=== PATIENT | male | born 1950 | race Caucasian/White ===

== ENCOUNTER 2016-09-10 07:08 | Observation (INO) | payer OTHER ==
[2016-09-05 09:22] VITALS: BMI 26.0
[~2016-09-10] VITALS: Ht 172.7 cm; Wt 79.5 kg
[2016-09-10] VITALS (9 sets, daily range): BP systolic 94–161; BP diastolic 52–93; PULSE 62–84; TEMP 36.2–36.7; O2SAT 92–98; Ht 172.7 cm; Wt 79.5 kg
[~2016-09-10 07:08] MED LIST: ASPI325T39 PO; CEFUROXIME IV 1,500 MG in DEXTROSE 5% 100ML IV SCH; CLC100X PO; FERR325T51 PO; LACTATED RINGER'S 1000ML 1,000 ML IV SCH; LISI10TA PO; MAGN250T3 PO; MULT-506 PO; PSYL55.43 PO; RANI150T3 PO; TADA5TAB11 PO
[2016-09-10] MEDS ORDERED: SUCCINYLCHOLINE CHLORIDE 20 MG/ML 10 ML VIAL IV ONE (08:33)
[2016-09-10] MEDS ORDERED: ONDANSETRON INJ 2 MG/ML 2 ML VIAL ONE (08:33)
[2016-09-10] MEDS ORDERED: PHENYLEPHRINE HCL INJ 10 MG/ML VIAL ONE (08:33)
[2016-09-10] MEDS ORDERED: ROCURONIUM BROMIDE 10 MG/ML 5 ML VIAL ONE (08:33)
[2016-09-10] MEDS ORDERED: MIDAZOLAM HCL 1 MG/ML 2ML VIAL ONE (08:33)
[2016-09-10] MEDS ORDERED: LIDOCAINE HCL 2% 2 ML VIAL (20MG/ML) ONE (08:33)
[2016-09-10] MEDS ORDERED: GLYCOPYRROLATE INJ 0.2 MG/ML VIAL ONE (08:33)
[2016-09-10] MEDS ORDERED: FENTANYL CITRATE INJ 50 MCG/1 ML 2 ML VIAL ONE ×2 (08:33→10:02)
[2016-09-10] MEDS ORDERED: DEXAMETHASONE SOD INJ 4 MG/ML VIAL ONE (08:33)
[2016-09-10] MEDS ORDERED: EpHEDrine SULFATE INJ 50 MG/ML AMP ONE (08:33)
[2016-09-10] MEDS ORDERED: NEOSTIGMINE METHYLSULFATE 5 MG/5 ML SYR ONE (08:33)
[2016-09-10] MEDS ORDERED: PROPOFOL IV EMULSION 10 MG/ML 20 ML VIAL IV ONE (08:33)
--- NOTE | 2016-09-10 09:03 | History & Physical Bridge Note ---
H&P Re-Evaluation Bridge Note: I have examined the patient, reviewed the History & Physical and in the interval since the performance of the History & Physical I have noted the following changes of clinical significance: No changes noted
[2016-09-10] MEDS ORDERED: METOCLOPRAMIDE HCL INJ 5 MG/ML 2 ML VIAL ONE (10:09)
[2016-09-10] MEDS ORDERED: DiphenhydrAMINE HCL 50 MG/ML VIAL ONE (10:09)
[2016-09-10] MEDS ORDERED: FLUMAZENIL 0.1 MG/1 ML 10 ML VIAL IV PRN (10:15)
[2016-09-10] MEDS ORDERED: HYDROmorphone INJ 1 MG/ML SYR IV PRN (10:15)
[2016-09-10] MEDS ORDERED: EpHEDrine SULFATE INJ 50 MG/ML AMP IV PRN (10:15)
[2016-09-10] MEDS ORDERED: PROMETHAZINE HCL INJ 12.5 MG in SODIUM CHLORIDE 0.9% 50ML 50 ML IV PRN ×2 (10:15→12:15)
[2016-09-10] MEDS ORDERED: ATROPINE SULFATE 0.1 MG/ML 5ML SYR IV PRN (10:15)
[2016-09-10] MEDS ORDERED: LABETALOL HCL IV 5 MG/ML 20ML IV PRN (10:15)
[2016-09-10] MEDS ORDERED: ONDANSETRON INJ 2 MG/ML 2 ML VIAL IV PRN ×2 (10:15→10:45)
[2016-09-10] MEDS ORDERED: NALOXONE HCL 0.4 MG/1 ML VIAL/CARP IV PRN (10:15)
[2016-09-10] MEDS ORDERED: BUPIVACAINE 0.5 % 5 MG/1 ML MPF 30ML VIAL INJ ONE (10:30)
--- NOTE | 2016-09-10 10:41 | [facility] Operative Report ---
Operative Report Operative Date Sep 10, 2016. Pre-Operative Diagnosis Billiary colic Post-Operative Diagnosis same, chronic cholecystitis, adhesions Procedure(s) Performed lap deanna, lysis of adhesions Surgeon Dr Douglas Bettencourt Estimated Blood Loss 20 Findings omental adhesions to abd wall and adhesions around gb Specimens A: Gallbladder Drains #15 Rd JORDYN to subhepatic space Anesthesia gen Complication(s) None Disposition Recovery Room / PACU I attest to the content of the Intraoperative Record and any orders documented therein. Any exceptions are noted below.
[2016-09-10] MEDS ORDERED: PROMETHAZINE HCL INJ 25 MG in SODIUM CHLORIDE 0.9% 50ML 50 ML IV PRN (10:45)
[2016-09-10] MEDS ORDERED: MoRPHine SULFATE 4 MG/ML 1 ML CARP\\VIAL IV PRN (10:45)
[2016-09-10] MEDS ORDERED: HYDROCODONE/ACETAMOPHEN 5/325MG TAB PO PRN ×2 (10:45)
[2016-09-10] MEDS ORDERED: MoRPHine SULFATE 2 MG/ML CARP IV PRN (10:45)
--- NOTE | 2016-09-10 11:09 | OPERATIVE REPORT ---
DATE OF OPERATION: 09/10/2016 PREOPERATIVE DIAGNOSIS: Biliary colic. POSTOPERATIVE DIAGNOSIS: Same with chronic cholecystitis and adhesions. NAME OF OPERATION: Laparoscopic cholecystectomy with lysis of adhesions. STAFF SURGEON: Dr. Bettencourt. ANESTHESIA: General. OPERATION AND FINDINGS: PROCEDURE: The patient was brought in the operating room and placed on the operating table in supine position. Pneumatic stockings and orogastric tube were placed. His abdomen was prepped and draped in usual fashion. He had previous scars from prior kidney surgery and also prostate surgery. Incision was made just below the umbilicus using 0.5% plain Marcaine to anesthetize the skin carrying dissection down to the fascia, placing a Veress needle producing pneumoperitoneum. An 11 mm port was placed at this level and then the camera passed. The patient did have adhesions to the anterior abdominal wall of the omentum. I was able to place 3 additional 5 mm ports, 1 cephalad and 2 laterally under visualization. The adhesions of the omentum were then taken down and then the gallbladder grasped and retracted. There were also adhesions to the gallbladder. These were taken down with mild difficulty. There was significant adhesion in the area of the tab hepatis, however I was gradually able to identify the area of the proximal gallbladder and cystic duct. This was clipped and transected. I believe the cystic artery was incorporated in this area. There were several other small areas that were clipped and then the gallbladder dissected away from the liver bed, it did show evidence of chronic inflammation. The gallbladder was placed in an Endobag. After appropriate hemostasis and irrigation I did place a 15 round Eldon-Espinoza drain through the lateral 5 mm site, placed into the subhepatic space, secured to the skin using 3-0 nylon suture. At this point, the 5 mm scope was used and the gallbladder and then removed through the umbilical site via an Endobag. All ports were then removed. The fascia at the umbilicus closed using interrupted 0 Vicryl suture and the skin reapproximated using 4-0 nylon suture. The patient was transferred to recovery room in stable condition. I attest to the content of the Intraoperative Record and any orders documented therein. Any exceptio ns are noted below.
--- NOTE | 2016-09-10 11:39 | Anesthesiology Progress Note ---
Anesthesia Post Op Note Date & Time Sep 10, 2016 at 11:38 Vital Signs Pain Intensity: 0 Vital Signs Past 12 Hours Date Time Temp Pulse Resp B/P Pulse Ox O2 Delivery O2 Flow Rate FiO2 09/10/16 11:28 36.4 09/10/16 11:18 153/86 09/10/16 11:16 63 15 09/10/16 11:16 63 15 99 09/10/16 11:13 146/82 09/10/16 11:11 67 16 98 09/10/16 11:11 66 16 09/10/16 11:08 157/85 09/10/16 11:06 76 12 100 09/10/16 11:06 76 12 09/10/16 11:05 149/83 09/10/16 11:04 163/100 09/10/16 11:01 80 15 09/10/16 11:01 80 15 99 09/10/16 10:58 150/91 09/10/16 10:56 74 12 09/10/16 10:56 74 12 99 09/10/16 10:53 143/83 09/10/16 10:51 75 12 98 09/10/16 10:51 75 12 09/10/16 10:49 136/70 09/10/16 10:46 36.3 74 13 159/88 100 Mask 10 09/10/16 10:46 74 13 09/10/16 10:46 73 13 100 09/10/16 07:33 36.5 77 20 157/92 97 Room Air Notes Mental Status: alert / awake / arousable, participated in evaluation Pt Amnestic to Procedure: Yes Nausea / Vomiting: adequately controlled Pain: adequately controlled Airway Patency, RR, SpO2: stable & adequate BP & HR: stable & adequate Hydration State: stable & adequate Anesthetic Complications: no major complications apparent
[2016-09-10] MEDS: LACTATED RINGER'S 1000ML 1,000 ML IV SCH (13:33)
[2016-09-10] MEDS ORDERED: HYDR-5688 PO (14:33)
[2016-09-10] MEDS ORDERED: CIPR-255 PO (14:33)
--- NOTE | 2016-09-10 14:35 | Discharge Instructions ---
Discharge Instructions Admission Reason for Admission: Right Upper Quadrant Abdominal Pain Discharge Discharge Diagnosis / Problem: cholecystitis Discharge Goals Goal(s): Decrease discomfort, Improve function, Improve disease control Activity Recommendations Activity Limitations: as noted below Lifting Limitations: no more than 25 pounds Exercise/Sports Limitations: until after follow-up appointment May Resume Sexual Activity: when tolerated Shower/Bathe: tomorrow Driving or Machine Use: resume 3 days after discharge SPECIAL CARE INSTRUCTIONS: * Cover incisions and change daily for comfort/drainage. * Empty drain 2-3 times per day and record. * May use ibuprofen for pain as tolerated. * Expect some swelling and bruising. Call your doctor if: * Temperature above 101 degrees * Pain not relieved by pain medicine ordered * There is increased drainage or redness from any incision * You have any unanswered questions or concerns [phone]. FOLLOW UP VISIT: If not already scheduled, please call the office for a follow-up visit. for next Thu or Thu- drain removal OFFICE PHONE NUMBER: Dr. Bettencourt Office . Current Hospital Diet Patient's current hospital diet: Regular Diet Discharge Diet Recommended Diet: Regular Diet Procedures Procedures Performed: Laparoscopic Cholecystectomy, Lysis of adhesions Pending Studies Studies pending at discharge: no Medical Emergencies . Who to Call and When: Medical Emergencies: If at any time you feel your situation is an emergency, please call 911 immediately. . Non-Emergent Contact Non-Emergency issues call your: Surgeon . "Provider Documentation" section prepared by Bonifacio Bettencourt. VTE Core Measure Inpt VTE Proph given/why not?: SCD's
[2016-09-10] MEDS ORDERED: IV FLUIDS COMPLETED PRN (14:45)
[2016-09-10] MEDS ORDERED: PNEUMOCOCCAL ADMINISTRATION CHARGE ONE (15:15)
[2016-09-10] MEDS ORDERED: PNEUMOCOCCAL POLYSACCHARIDES 25 MCG/0.5 ML VIAL/SYR IM. ONE (15:15)
[2016-09-10] MEDS ORDERED: OXYCODONE/ACETAMINOPHEN 5-325 TAB PO PRN (16:00)
[2016-09-10] MEDS ORDERED: NURSING DECISION MEDICATION ORDER SCH (16:00)
[2016-09-10] MEDS: LISINOPRIL 10 MG TAB PO SCH (16:13)
[2016-09-10] MEDS ORDERED: COUGH DROP (SUGAR FREE) LOZ 24 LOZ/1 BOX PO PRN (16:15)
[2016-09-10] MEDS: OXYCODONE/ACETAMINOPHEN 5-325 TAB PO PRN ×2 (16:16→20:54)
[2016-09-10] MEDS: CEFUROXIME IV 1,500 MG in DEXTROSE 5% 100ML 100 ML IV SCH (18:48)
[2016-09-10] MEDS: RANITIDINE HCL 150 MG TAB PO SCH (20:54)
[2016-09-10] MEDS: DOCUSATE SODIUM 100 MG CAP PO SCH (20:54)
[2016-09-11] MEDS: LACTATED RINGER'S 1000ML 1,000 ML IV SCH (01:18)
[2016-09-11] MEDS: CEFUROXIME IV 1,500 MG in DEXTROSE 5% 100ML 100 ML IV SCH ×2 (01:19→09:39)
[2016-09-11 01:22] VITALS: BP 122/65
[2016-09-11 03:26] VITALS: BP 115/58; PULSE 70; TEMP 36.6; O2SAT 94
[2016-09-11 05:06] LABS: HEMATOCRIT 38.9 % (42-52); MEAN CELL VOLUME 81.9 fL (80-100); MEAN CORPUSCULAR HEMOGLOBIN 26.7 pg (25-34); MEAN CORPUSCULAR HGB CONC 32.6 g/dl (32-36); PLATELET COUNT 254 K/uL (130-400); RED BLOOD COUNT 4.75 M/uL (4.7-6.1); WHITE BLOOD COUNT 12.33 K/uL (4.8-10.8)
[2016-09-11] MEDS ORDERED: OXYC-57 PO (05:36)
[2016-09-11 05:41] LABS: ALT/SGPT 32 U/L (12-78); AST/SGOT 23 U/L (15-37); BLOOD UREA NITROGEN 14 mg/dl (7-18); BUN/CREATININE RATIO 18.3 (10-20); CALCIUM 8.3 mg/dl (8.5-10.1); CARBON DIOXIDE 26 mmol/L (21-32); CHLORIDE 110 mmol/L (98-107); CREATININE 0.77 mg/dl (0.60-1.40); GLUCOSE 107 mg/dl (70-99); POTASSIUM 4.4 mmol/L (3.5-5.1); SODIUM 143 mmol/L (136-145)
[2016-09-11 05:43] LABS: ALB/GLOB RATIO 1.2 (0.9-2); ALKALINE PHOSPHATASE 73 U/L (45-117)
[2016-09-11 06:54] VITALS: BP 112/58; PULSE 63; TEMP 36.5; O2SAT 94
[2016-09-11 07:23] VITALS: BP 112/58; PULSE 63; TEMP 36.5; O2SAT 94
--- NOTE | 2016-09-11 07:53 | DISCHARGE SUMMARY ---
PRINCIPAL DIAGNOSIS: Chronic cholecystitis. PROCEDURES: The patient underwent laparoscopic cholecystectomy with drain placement. HISTORY OF PRESENT ILLNESS: The patient is a 66-year-old male who has been having upper abdominal symptoms consistent with biliary colic. HOSPITAL COURSE: The patient was brought into the hospital on 09/10/2016 to undergo elective cholecystectomy. We did perform the operation with laparoscope; however, he did have significant adhesions from previous surgery which complicated this operation somewhat. The gallbladder showed severe adhesions and chronic inflammation and I did place a drain which he will be discharged home with. We will see him in the surgical clinic next week.
[2016-09-11] MEDS: DOCUSATE SODIUM 100 MG CAP PO SCH (08:35)
[2016-09-11] MEDS: RANITIDINE HCL 150 MG TAB PO SCH (08:35)
[2016-09-11] MEDS ORDERED: PSYLLIUM 58.6% PWD PACK S\\F PO SCH (09:00)
[2016-09-11] MEDS: LISINOPRIL 10 MG TAB PO SCH (09:35)
[2016-09-11] MEDS: OXYCODONE/ACETAMINOPHEN 5-325 TAB PO PRN (10:28)
--- NOTE | 2016-09-11 10:29 | Anesthesiology Progress Note ---
Anesthesia Post Op Note Date & Time Sep 11, 2016 at 10:28 Vital Signs Pain Intensity: 5.0 Vital Signs Past 12 Hours Date Time Temp Pulse Resp B/P Pulse Ox O2 Delivery O2 Flow Rate FiO2 09/11/16 08:00 Room Air 09/11/16 07:23 36.5 63 18 94 Room Air 09/11/16 06:54 36.5 63 18 112/58 94 Room Air 09/11/16 03:26 36.6 70 16 115/58 94 Room Air 09/11/16 01:22 122/65 09/10/16 23:25 36.7 80 16 94/52 92 Room Air 09/10/16 23:05 Room Air Notes Mental Status: alert / awake / arousable, participated in evaluation Pt Amnestic to Procedure: Yes Nausea / Vomiting: adequately controlled Pain: adequately controlled Airway Patency, RR, SpO2: stable & adequate BP & HR: stable & adequate Hydration State: stable & adequate Anesthetic Complications: no major complications apparent
== END 2016-09-11 10:44 | disposition home or self-care (01) ==
LOC: ENRESERVTM → ENRESERVDT → C.ACU 07:08 → C.MSW 10:46
PROVIDERS: ADMIT Surgery; ATTEND Surgery
DX: K81.1 Chronic cholecystitis (principal); K66.0 Peritoneal adhesions (postprocedural) (postinfection); N40.1 Benign prostatic hyperplasia with lower urinary tract symptoms; N13.8 Other obstructive and reflux uropathy; K21.9 Gastro-esophageal reflux disease without esophagitis; I10 Essential (primary) hypertension; N52.9 Male erectile dysfunction, unspecified; Z90.49 Acquired absence of other specified parts of digestive tract; Z79.82 Long term (current) use of aspirin; Z85.46 Personal history of malignant neoplasm of prostate; Z82.49 Family history of ischemic heart disease and other diseases of the circulatory system; Z80.42 Family history of malignant neoplasm of prostate

== ENCOUNTER → 2016-10-02 | Outpatient (CLI) | payer OTHER ==
[~2016-10-02] MED LIST changes: +ASPI325T45 PO; -CEFUROXIME IV 1,500 MG in DEXTROSE 5% 100ML IV SCH; +CIPR-255 PO; +DOCU-94 PO; +FRRS300 PO; -LACTATED RINGER'S 1000ML 1,000 ML IV SCH; +ONDA4TAB10 SL; +OXYC-57 PO; +PSYL48.58 PO; -TADA5TAB11 PO; +TAMS0.4C38 PO
[2016-10-02 12:23] LABS: BLOOD UREA NITROGEN 15 mg/dl (7-18); BUN/CREATININE RATIO 16.4 (10-20)
[2016-10-02 12:24] LABS: PROSTATE SPECIFIC ANTIGEN < 0.010 ng/ml (0.000-4.000)
== END | disposition home or self-care (01) ==
LOC: C.LAB 11:12
PROVIDERS: ATTEND Urology
DX: N52.9 Male erectile dysfunction, unspecified (principal)

== ENCOUNTER 2016-10-16 02:30 | Emergency (ER) | payer OTHER ==
[~2016-10-16 02:30] MED LIST changes: -ASPI325T45 PO; -DOCU-94 PO; -FRRS300 PO; -ONDA4TAB10 SL; -PSYL48.58 PO; -TAMS0.4C38 PO
[2016-10-16 04:27] LABS: MANUAL MICROSCOPIC REQUIRED? NO; REVIEW REQ? NO; URINE APPEARANCE CLEAR (CLEAR); URINE BILIRUBIN NEG (NEG); URINE COLOR YELLOW; URINE EPITHELIAL CELL AUTO 0-5 /lpf (0-5); URINE NITRITE NEG (NEG); URINE SPECIFIC GRAVITY 1.011 (1.000-1.030); UROBILINOGEN NEG (NEG)
[2016-10-16 04:37] LABS: BLOOD UREA NITROGEN 21 mg/dl (7-18); BUN/CREATININE RATIO 22.6 (10-20); CALCIUM 8.7 mg/dl (8.5-10.1); CARBON DIOXIDE 26 mmol/L (21-32); CHLORIDE 109 mmol/L (98-107); CREATININE 0.93 mg/dl (0.60-1.40); GLUCOSE 115 mg/dl (70-99); POTASSIUM 4.3 mmol/L (3.5-5.1); SODIUM 143 mmol/L (136-145)
[2016-10-16] MEDS ORDERED: ONDA4TAB10 SL (04:47)
[2016-10-16] MEDS ORDERED: OXYC-57 PO (04:47)
[2016-10-16] MEDS ORDERED: TAMS0.4C38 PO (04:47)
--- NOTE | 2016-10-16 04:49 | EMERGENCY ROOM VISIT NOTE ---
History First contact with patient: 04:42 Stated Complaint: LT FLANK PAIN History of Present Illness The patient is a 66 year old male who presents to the Emergency Room with complaints of left flank pain which began today. The patient has had left flank pain with radiation into the genitals. He states that prior to arrival, he developed severe 10/10 pain in the left flank. He had one episode of vomiting. Pain has almost completely resolved on his arrival to the emergency room. The patient does have a history of kidney stones and feels this may be similar. He has not had a kidney stone for several years. The patient has also had a cough for the past one month. He denies any urinary symptoms, changes in bowel movements, fevers/chills, chest pain or shortness of breath. Review of Systems A complete 10-point Review of Systems was discussed with the patient, with pertinent positives and negatives listed in the History of Present Illness. All remaining Review of Systems questions can be considered negative unless otherwise specified. Past Medical/Surgical History Medical Problems: (1) Biliary colic (2) Duodenal stricture (3) Hiatal hernia (4) Prostate cancer Surgical Problems: (1) History of appendectomy (2) History of hernia repair (3) History of kidney surgery Family History Patient reports no known family medical history. Social History Smoking Status: Never Smoker Marital Status: Housing Status: lives with family Occupation Status: employed Current/Historical Medications Scheduled Docusate Sodium (Colace), 1 CAP PO BID Ferrous Sulfate (Ferrous Sulfate), 325 MG PO QAM Lisinopril (Prinivil), 10 MG PO QAM Magnesium (Magnesium 250 mg), 250 MG PO QAM Multivitamin (Multivitamin), 1 TAB PO QAM Ondasetron Odt (Zofran Odt), 4 MG SL Q6H Psyllium (Metamucil Original Textur), 1 PKT PO QAM Ranitidine Hcl (Zantac), 150 MG PO BID Tamsulosin Hcl (Flomax), 0.4 MG PO DAILY Scheduled PRN Oxycodone/Acetaminophen 5MG/325MG (Percocet 5MG/325MG), 1-2 TABS PO Q4H PRN for Pain Allergies Coded Allergies: No Known Allergies (Verified , 10/16/16) Physical Exam Vital Signs Date Time Temp Pulse Resp B/P Pulse Ox O2 Delivery O2 Flow Rate FiO2 10/16/16 04:59 87 16 117/72 99 Physical Exam VITALS: Vitals are noted on the nurse's note and reviewed by myself. Vital signs stable. GENERAL: This is a 14-year-old male, in no acute distress, nondiaphoretic, well- developed well-nourished. SKIN: Capillary reflex less than 2 seconds. HEART: Regular rate and rhythm without murmurs gallops or rubs. LUNGS: Clear to auscultation bilaterally without wheezes, rales or rhonchi. No retractions or accessory muscle use. ABDOMEN: Positive bowel sounds x 4. Soft, nontender to palpation. MUSCULOSKELETAL: No CVA tenderness. NEURO: Patient was alert and oriented to person place and time. Medical Decision & Procedures ER Provider Diagnostic Interpretation: CT ABDOMEN & PELVIS: 5 mm obstructing calculus in the distal left ureter near the UVJ. Mild left hydroureteronephrosis. Nonobstructing left renal calculi. Bilateral renal low density lesions. Cholecystectomy. Small hiatal hernia. Liver low-density lesion. Colonic diverticulosis. Mild haziness of the right upper quadrant fat anteriorly. May reflect age- indeterminate omental infarct, scarring/chronic changes. Radiologist: Mauro Ling M.D. Laboratory Results 10/16/16 03:14 10/16/16 03:14 Test 10/16/16 03:00 10/16/16 03:01 10/16/16 03:14 Urine Color YELLOW Urine Appearance CLEAR (CLEAR) Urine pH 5.0 (4.5-7.5) Urine Specific [place] 1.011 (1.000-1.030) Urine Protein NEG (NEG) Urine Glucose (UA) NEG (NEG) Urine Ketones NEG (NEG) Urine Occult Blood TRACE (NEG) Urine Nitrite NEG (NEG) Urine Bilirubin NEG (NEG) Urine Urobilinogen NEG (NEG) Urine Leukocyte Esterase NEG (NEG) Urine WBC (Auto) 1-5 /hpf (0-5) Urine RBC (Auto) 0-4 /hpf (0-4) Urine Hyaline Casts (Auto) 1-5 /lpf (0-5) Urine Epithelial Cells (Auto) 0-5 /lpf (0-5) Urine Bacteria (Auto) NEG (NEG) Influenza Type A Antigen Neg for Influ A (NEG) Influenza Type B Antigen Neg for Influ B (NEG) Red Blood Count 5.73 M/uL (4.7-6.1) Mean Corpuscular Volume 81.0 fL (80-100) Mean Corpuscular Hemoglobin 26.9 pg (25-34) Mean Corpuscular Hemoglobin Concent 33.2 g/dl (32-36) RDW Standard Deviation 44.9 fL (36.4-46.3) RDW Coefficient of Variation 15.3 % (11.5-14.5) Mean Platelet Volume 10.1 fL (7.4-10.4) Nucleated RBC Absolute Count (auto) 0.00 K/uL (0-0) Nucleated Red Blood Cells % 0.0 % Anion Gap 8.0 mmol/L (3-11) Estimated GFR () 97.4 Estimated GFR (Non- 84.1 BUN/Creatinine Ratio 22.6 (10-20) Calcium Level 8.7 mg/dl (8.5-10.1) Medical Decision Differential diagnosis includes renal calculus, pyelonephritis, musculoskeletal pain, gastritis, colitis, appendicitis, diverticulitis, among others. The patient was evaluated as above. Labs were drawn and IV access was obtained. Imaging studies were performed and read by radiology as above. The patient declined analgesics. He was given 1 L normal saline solution. The patient was reassessed multiple times during their stay in the emergency department and remained in stable condition. The patient is a 66-year-old male who presents today complaining of left flank pain. Labs revealed. No leukocytosis, anemia or concerning electrolyte abnormalities. Urinalysis showed trace blood. CT scan did show a left obstructing stone. There was also a nonspecific finding in the right upper quadrant, possibly omental infarct or scarring. I discussed this with the patient and his did state that during his gallbladder surgery, they had made mention of scarring of the omentum. This is likely the cause of this finding. The patient does not have right upper quadrant pain at this time. He is not having significant pain at this time. He will be given Flomax, Percocet and Zofran for the kidney stone and follow up with his urologist as needed. An influenza swab and chest x-ray were performed due to the patient's persistent cough and both were negative. The cough is likely viral in nature. Based on the patient's presentation, lab results, and imaging studies, I feel the patient is stable for outpatient treatment. Discharge instructions were reviewed with the patient. The patient verbalized understanding of my assessment and treatment plan and was discharged home in good condition. Impression Primary Impression: Left ureteral calculus Departure Information Dispostion Home / Self-Care Condition GOOD Prescriptions Ondasetron Odt (ZOFRAN ODT) 4 Mg Tab 4 MG SL Q6H for Nausea, #15 TAB Prov: Antonia Schultz PA-C 10/16/16 Oxycodone/Acetaminophen 5MG/325MG (PERCOCET 5MG/325MG) Tab 1-2 TABS PO Q4H Y for Pain, #20 TAB For Initial Treatment Prov: Antonia Schultz PA-C 10/16/16 Tamsulosin Hcl (FLOMAX) 0.4 Mg Cap 0.4 MG PO DAILY for 10 Days, #10 CAP Prov: Antonia Schultz PA-C 10/16/16 Referrals No Doctor, Assigned (PCP) Additional Instructions You have been treated in the Emergency Department today for a Kidney Stone ( Nephrolithiasis). You have been prescribed Percocet to be used for pain control. This is a narcotic medication. You cannot drive or consume alcohol while on this medicine. This medicine should only be used for pain that cannot be controlled with [id number] pain medicines. You have been prescribed Zofran to be used for any nausea or vomiting. Take as prescribed. You have been prescribed Flomax 0.4 mg to be taken ONCE daily. This medicine has been prescribed as it can help relax the smooth muscles of the urinary tract increasing transit time of the kidney stone. For pain control, you can use the following [id number] medicines (if >12 yo): - Regular strength (325mg/tab) Tylenol (acetaminophen) 2 tabs every 4-6 hours as needed. Do not exceed 12 tablets in a 24 hour period. Avoid taking more than 4 grams (4000 mg) of Tylenol per day. This includes any other sources of acetaminophen you may take on a regular basis. - Regular strength (200 mg/tab) Advil (ibuprofen) 1-2 tabs every 4-6 hours as needed. Do not exceed a dose of 3200 mg per day. Strain your urine until he passed a stone. Follow-up with your urologist as needed. Return to the Emergency Department if your symptoms persist despite the treatment plan outlined above or if you develop the following symptoms: intractable pain, fever, chills, or large amounts of blood in your urine.
[2016-10-16 04:59] VITALS: BP 117/72; PULSE 87; O2SAT 99
[2016-10-16] MEDS ORDERED: PSYL48.58 PO (04:59)
[2016-10-16] MEDS ORDERED: FRRS300 PO (04:59)
[2016-10-16] MEDS ORDERED: DOCU-94 PO (04:59)
[2016-10-16 06:42] LABS: HEMATOCRIT 46.4 % (42-52); MEAN CORPUSCULAR HEMOGLOBIN 26.9 pg (25-34); MEAN CORPUSCULAR HGB CONC 33.2 g/dl (32-36); MEAN PLATELET VOLUME 10.1 fL (7.4-10.4); PLATELET COUNT 244 K/uL (130-400); RED BLOOD COUNT 5.73 M/uL (4.7-6.1)
--- NOTE | 2016-10-16 06:54 | DIAGNOSTIC IMAGING REPORT ---
CHEST ONE VIEW PORTABLE CLINICAL HISTORY: PORTABLE CXR dyspnea COMPARISON STUDY: 09/02/2015 FINDINGS: The bones soft tissues and hemidiaphragms are normal. The cardiomediastinal silhouette is normal. The lungs are clear. The pulmonary vasculature is normal. IMPRESSION: Negative chest. Electronically signed by: David Gotti M.D. 10/16/2016 6:53 AM Dictated Date/Time: 10/16/2016 6:53 AM
--- NOTE | 2016-10-16 06:55 | DIAGNOSTIC IMAGING REPORT ---
CT SCAN OF THE ABDOMEN AND PELVIS WITHOUT CONTRAST CLINICAL HISTORY: RIGHT FLANK PAIN, R/O KIDNEY STONE COMPARISON STUDY: 07/19/2016 TECHNIQUE: CT scan of the abdomen and pelvis was performed from the lung bases to the proximal femurs. Images are reviewed in the axial, sagittal, and coronal planes. IV contrast was not administered for this examination. CT DOSE: FINDINGS: Lower chest: There are mild dependent atelectatic changes. Liver: There is a 2.9 cm left lobe hepatic cyst. Gallbladder: Surgically absent Spleen: Normal in size and attenuation. Pancreas: Unremarkable. Adrenal glands: Unremarkable. Kidneys: There are bilateral nonobstructing renal calculi. There are bilateral renal cysts, the largest of which measures 5 cm in the right and 4.2 cm and the left. There is a 6 mm calculus at the level of the left ureteral vesicle junction with minor secondary obstructive changes.. Bowel: There are no transition zones to indicate bowel obstruction. The appendix is not visualized with certainty. There are no pericecal inflammatory changes. There is colonic diverticulosis. There is no evidence of acute peridiverticular inflammatory change. Peritoneum: There is very subtle nonspecific infiltration of the anterior omentum. There is no free air. There is no ascites. Vasculature: The abdominal aorta is normal in course and caliber. Adenopathy: None. Pelvic viscera: The bladder, and pelvic viscera are unremarkable. Skeletal structures: There are postsurgical changes present within the lumbar spine IMPRESSION: 1. No evidence of bowel obstruction. No evidence of free air 2. Bilateral nephrolithiasis. 6 mm calculus at the level of the left ureterovesical junction with minor secondary obstructive changes 3. Bilateral renal cysts 4. Nonspecific infiltration of the anterior omentum. Electronically signed by: Charles Wilson M.D. 10/16/2016 6:53 AM Dictated Date/Time: 10/16/2016 6:48 AM
== END 2016-10-16 05:00 | disposition home or self-care (01) ==
LOC: C.EDB 02:30
DX: N20.1 Calculus of ureter (principal); Z87.442 Personal history of urinary calculi; Z85.46 Personal history of malignant neoplasm of prostate; Z90.89 Acquired absence of other organs; Z98.890 Other specified postprocedural states

== ENCOUNTER → 2016-12-19 | Outpatient (CLI) | payer OTHER ==
[~2016-12-19] MED LIST changes: -ASPI325T39 PO; +ASPI325T45 PO; -CIPR-255 PO; -CLC100X PO; +DOCU-94 PO; -FERR325T51 PO; +FRRS300 PO; +ONDA4TAB10 SL; +PSYL48.58 PO; -PSYL55.43 PO
== END | disposition home or self-care (01) ==
LOC: C.LAB 18:34
PROVIDERS: ATTEND Urology
DX: N41.9 Inflammatory disease of prostate, unspecified (principal); N39.0 Urinary tract infection, site not specified

== ENCOUNTER 2016-12-24 06:26 | Inpatient (IN) | payer OTHER ==
[~2016-12-24] VITALS: Ht 172.7 cm; Wt 76.6 kg
[~2016-12-24 06:26] MED LIST changes: -ASPI325T45 PO
[2016-12-24 06:49] LABS: BASO % 0.2 %; BASO ABS # 0.03 K/uL (0-0.2); COMPLETE YES; HEMATOCRIT 46.9 % (42-52); IG% 0.2 %; LYMPH % 10.4 %; LYMPH ABS # 1.67 K/uL (1.2-3.4); MEAN CELL VOLUME 86.1 fL (80-100); MEAN CORPUSCULAR HEMOGLOBIN 28.4 pg (25-34); MEAN PLATELET VOLUME 9.6 fL (7.4-10.4); MONO % 13.5 %; NEUT % 74.7 %; PLATELET COUNT 315 K/uL (130-400); RED BLOOD COUNT 5.45 M/uL (4.7-6.1); WHITE BLOOD COUNT 16.09 K/uL (4.8-10.8)
[2016-12-24] MEDS ORDERED: ASPI325T45 PO (07:00)
[2016-12-24 07:05] LABS: BUN/CREATININE RATIO 20.9 (10-20); POTASSIUM 4.3 mmol/L (3.5-5.1)
--- NOTE | 2016-12-24 07:51 | DIAGNOSTIC IMAGING REPORT ---
CHEST ONE VIEW PORTABLE CLINICAL HISTORY: Upper abdominal pain. COMPARISON STUDY: Chest radiograph October 16, 2016. FINDINGS: Lung volumes are normal. There is no pneumothorax or pleural effusion. Cardiac size is normal. Mediastinal contours are normal. There is no evidence of pulmonary edema. IMPRESSION: No acute cardiopulmonary findings. Electronically signed by: Carlton See M.D. 12/24/2016 7:50 AM Dictated Date/Time: 12/24/2016 7:49 AM
[2016-12-24 08:26] LABS: URINE APPEARANCE CLEAR (CLEAR); URINE BILIRUBIN NEG (NEG); URINE COLOR YELLOW; URINE EPITHELIAL CELL AUTO 0-5 /lpf (0-5); URINE NITRITE NEG (NEG); URINE SPECIFIC GRAVITY 1.012 (1.000-1.030); UROBILINOGEN NEG (NEG); ZZUR CULT IF INDIC CLEAN CATCH NO
[2016-12-24 08:32] LABS: MANUAL MICROSCOPIC REQUIRED? NO; REVIEW REQ? NO
[2016-12-24] MEDS ORDERED: MoRPHine SULFATE 4 MG/ML 1 ML CARP\\VIAL IV STA (08:40)
[2016-12-24] MEDS ORDERED: OPTIRAY 320 IV PRN (08:45)
--- NOTE | 2016-12-24 10:10 | DIAGNOSTIC IMAGING REPORT ---
CT ABD/PELVIS IV AND ORAL CONT CLINICAL HISTORY: Epigastric abdominal pain COMPARISON STUDY: 3-17 TECHNIQUE: Following the IV administration of 93 mL of Optiray-320, CT scan of the abdomen and pelvis was performed from the lung bases to the proximal femurs. Images are reviewed in the axial, sagittal, and coronal planes. IV contrast was administered without complication. CT DOSE: 430.36 mGy.cm FINDINGS: Lower chest: There is a 2 cm opacity within the left lower lobe, likely representing focal atelectatic change. Liver: There is hepatic steatosis. There is a stable 34 mm left lobe hepatic cyst Gallbladder: Unremarkable. Spleen: Normal in size and attenuation. Pancreas: Pancreatic head appears minimally edematous. Please correlate with appropriate biochemical markers to exclude mild acute pancreatitis Adrenal glands: Unremarkable. Kidneys: There is a nonobstructing left renal calculus. There are bilateral renal cortical cysts the largest of which measures 52 mm in the right and 46 mm and the left Bowel: There are no transition zones indicate bowel obstruction. There is no evidence of acute diverticulitis. The appendix is not visualized with certainty. There are no findings to indicate acute appendicitis. Peritoneum: There is no intraperitoneal free air or abdominal ascites. There is minimal infiltration of the anterior omentum, less pronounced than the prior study. This may represent fat necrosis. Vasculature: The abdominal aorta is normal in course and caliber. Adenopathy: None. Pelvic viscera: The patient appears be status post a TURP. Skeletal structures: There are postsurgical changes present within the lumbar spine IMPRESSION: 1. Subtle pancreatic head edema. Correlation with appropriate biochemical markers is recommended to exclude mild acute pancreatitis 2. Nonobstructing left renal calculus 3. Bilateral renal cysts 4. No evidence of bowel obstruction. No evidence of free air 5. No evidence of diverticulitis. No evidence of acute appendicitis 6. Diminishing infiltration of the anterior omentum Electronically signed by: Charles Wilson M.D. 12/24/2016 10:08 AM Dictated Date/Time: 12/24/2016 10:01 AM
--- NOTE | 2016-12-24 11:45 | Medical Student: [facility] ---
Med Student History & Physical Date & Time of Service: December 24, 2016 at 11:38 Chief Complaint: Epigastric Pain Primary Care Physician: Kelsey Denis M.D. History of Present Illness Source: patient Mr. Dakota Pagan is a 67 y/o male who presents with three days of epigastric pain radiating to his right shoulder that has become increasingly intense and constant. He has also been intermittently nauseous and vomited two days ago. Last night he took two Percocet left over from his cholecystectomy three months ago, and he was able to sleep after taking two. He took one this morning, at which time he decided to come to the ED. His pain at that time was a 9/10, and is currently a 4/10. It does not increase with eating and laying on his left side alleviates the pain. Movement or laying on his back increases it. He denies fevers, chills, diarrhea, constipation or other symptoms. He has a previous history of pancreatitis one year ago and a long history of RUQ pain following large, fatty meals, for which is gallbladder was removed. He also has a history of hypertension for which he has taken an travis inhibitor for the past ~2 years. Past Medical/Surgical History Medical Problems: (1) Abdominal pain Status: Acute (2) Acute pancreatitis Status: Acute (3) Left ureteral calculus Status: Acute Social History Smoking Status: Never Smoker Alcohol Use: socially (Glass of wine on rare social occasions, none recently) Drug Use: none Marital Status: Housing status: lives with family ( and disabled daughter) Occupational Status: employed Immunizations History of Influenza Vaccine: Yes Influenza Vaccine Date: Apr 07, 2012 History of Tetanus Vaccine?: Yes History of Pneumococcal: No Pneumococcal Date: Apr 07, 2012 History of Hepatitis B Vaccine: Yes Hepatitis Immunization Date: Mar 07, 1988 Allergies Coded Allergies: No Known Allergies (Verified , 12/24/16) Medications Aspirin (Aspirin), 650 MG PO BID Docusate Sodium (Colace), 1 CAP PO BID Ferrous Sulfate (Ferrous Sulfate), 325 MG PO QAM Lisinopril (Prinivil), 10 MG PO QAM Magnesium (Magnesium 250 mg), 250 MG PO QAM Multivitamin (Multivitamin), 1 TAB PO QAM Oxycodone/Acetaminophen 5MG/325MG (Percocet 5MG/325MG), 1-2 TABS PO Q4H PRN for Pain Psyllium (Metamucil Original Textur), 1 PKT PO QAM Ranitidine Hcl (Zantac), 150 MG PO BID Review of Systems Constitutional: No problem reported Eyes: No problem reported ENT: No problem reported Respiratory: No problem reported Cardiovascular: No problem reported Abdomen: + nausea, + pain (4/10, down from 9/10 this morning), No GI bleeding, No constipation, No diarrhea Musculoskeletal: No problem reported Integumentary: No problem reported Physical Exam Vital Signs (24 Hours) Date Time Temp Pulse Resp B/P Pulse Ox O2 Delivery O2 Flow Rate FiO2 12/24/16 11:13 85 14 101/54 95 Room Air 12/24/16 10:39 70 12/24/16 08:54 85 18 98/63 96 Room Air 12/24/16 07:45 78 18 97/63 97 Room Air 12/24/16 06:53 74 12/24/16 06:28 36.7 89 18 119/75 95 Room Air General Appearance: WD/WN, no apparent distress Head: normocephalic, atraumatic Eyes: normal inspection, PERRL, EOMI, sclerae normal ENT: normal ENT inspection, hearing grossly normal, pharynx normal Neck: supple, no adenopathy, no JVD, trachea midline Respiratory/Chest: chest non-tender, lungs clear, normal breath sounds, no respiratory distress, no accessory muscle use Cardiovascular: regular rate, rhythm, no edema, no gallop, no JVD, no murmur, normal peripheral pulses Abdomen/GI: normal bowel sounds, soft, no organomegaly, no pulsatile mass, + tenderness (diffuse, 4/10 pain. Not worse with pressure. No rebound tenderness or guarding. Lance and Workman Boudreaux signs negative) Back: normal inspection, no CVA tenderness Extremities/Musculoskelatal: normal inspection Neurologic/Psych: alert, normal mood/affect, oriented x 3 Skin: normal color Diagnostics Laboratory Results Results Past 24 Hours Test 12/24/16 06:38 12/24/16 08:05 Range/Units White Blood Count 16.09 4.8-10.8 K/uL Red Blood Count 5.45 4.7-6.1 M/uL Hemoglobin 15.5 14.0-18.0 g/dL Hematocrit 46.9 42-52 % Mean Corpuscular Volume 86.1 80-100 fL Mean Corpuscular Hemoglobin 28.4 25-34 pg Mean Corpuscular Hemoglobin Concent 33.0 32-36 g/dl Platelet Count 315 130-400 K/uL Mean Platelet Volume 9.6 7.4-10.4 fL Neutrophils (%) (Auto) 74.7 % Lymphocytes (%) (Auto) 10.4 % Monocytes (%) (Auto) 13.5 % Eosinophils (%) (Auto) 1.0 % Basophils (%) (Auto) 0.2 % Neutrophils # (Auto) 12.01 1.4-6.5 K/uL Lymphocytes # (Auto) 1.67 1.2-3.4 K/uL Monocytes # (Auto) 2.18 0.11-0.59 K/uL Eosinophils # (Auto) 0.16 0-0.5 K/uL Basophils # (Auto) 0.03 0-0.2 K/uL RDW Standard Deviation 51.1 36.4-46.3 fL RDW Coefficient of Variation 16.3 11.5-14.5 % Immature Granulocyte % (Auto) 0.2 % Immature Granulocyte # (Auto) 0.04 0.00-0.02 K/uL Sodium Level 139 136-145 mmol/L Potassium Level 4.3 3.5-5.1 mmol/L Chloride Level 106 98-107 mmol/L Carbon Dioxide Level 28 21-32 mmol/L Anion Gap 5.0 3-11 mmol/L Blood Urea Nitrogen 21 7-18 mg/dl Creatinine 1.00 0.60-1.40 mg/dl Est Creatinine Clear Calc Drug Dose 68.4 ml/min Estimated GFR () 89.2 Estimated GFR (Non- 77.0 BUN/Creatinine Ratio 20.9 10-20 Random Glucose 94 70-99 mg/dl Calcium Level 9.0 8.5-10.1 mg/dl Total Bilirubin 0.4 0.2-1 mg/dl Direct Bilirubin 0.1 0-0.2 mg/dl Aspartate Amino Transf (AST/SGOT) 18 15-37 U/L Alanine Aminotransferase (ALT/SGPT) 25 12-78 U/L Alkaline Phosphatase 103 45-117 U/L Total Protein 7.0 6.4-8.2 gm/dl Albumin 3.4 3.4-5.0 gm/dl Lipase 1366 73-393 U/L Urine Color YELLOW Urine Appearance CLEAR CLEAR Urine pH 5.0 4.5-7.5 Urine Specific [place] 1.012 1.000-1.030 Urine Protein NEG NEG Urine Glucose (UA) NEG NEG Urine Ketones NEG NEG Urine Occult Blood NEG NEG Urine Nitrite NEG NEG Urine Bilirubin NEG NEG Urine Urobilinogen NEG NEG Urine Leukocyte Esterase NEG NEG Urine WBC (Auto) 1-5 0-5 /hpf Urine RBC (Auto) 0-4 0-4 /hpf Urine Hyaline Casts (Auto) 1-5 0-5 /lpf Urine Epithelial Cells (Auto) 0-5 0-5 /lpf Urine Bacteria (Auto) NEG NEG Diagnostic Radiology CXR: Normal CT Chest and Abdomen: Edema of pancreatic head. Hepatomegally. Gall bladder absent. EKG NSR, Normal ECG Normal EKG Impression Assessment and Plan Mr. Pagan is a 66 y/o male with a three day history of worsening and more constant epigastric pain and a history of pancreatitis suffering from mild- acute pancreatitis of unknown cause. Lipase is elevated and CT shows edematous pancreatic head. Individual assessment and plans are as follows. 1. Pancreatitis: Acute, mild. Pt is NPO for bowel rest. TPN and normal saline. Will trend lipase daily. RUQ ultrasound requested to determine potential stone, stricture or blockage causing pancreatitis. Pt is on lisinopril- Will D/C Lisinopril, as TRAVIS-i have been known to increase risk of pancreatitis, although this risk is rare. As his lipids are normal, he does not drink alcohol, and he has no other risk factors other than a cholecystectomy three months ago, stopping TRAVIS-i and replacing with another anti-hypertensive may decrease risk of recurrence. Continue to control pain with morphine via CHIEF RELAY TESTER . 2. L Renal calculus- BUN slightly elevated. Will recheck BUN in morning. Continue to push IV fluids to flush stone. 3. D/C home meds until bowel rest is complete. Then restart home meds except for lisinopril. 4. DVT Prophylaxis: Encourage ambulation. SCDs and lovenox. 5. Disposition: Med/Surg. Continue on bowel rest until pain improves. Level of Care Med/Surg DVT Prophylaxis enoxaparin (Lovenox) SQ, SCDs, other (ambulate as tolerated, no fall risk)
--- NOTE | 2016-12-24 12:11 | EMERGENCY ROOM VISIT NOTE ---
History Report prepared by David: Jane Huang Under the Supervision of: Dr. Romulo Pretty D.O. First contact with patient: 06:51 Chief Complaint: GI ASSESSMENT Stated Complaint: EPIGASTRIC PAIN Nursing Triage Summary: pt reports epigastric pain since thursday with intermittent nausea. pt took percocet at home for pain. Gallbladder removed in sep. hx pancreatitis. History of Present Illness The patient is a 66 year old male who presents to the Emergency Room with complaints of constant epigastric abdominal pain beginning 3 days ago. The patient states that he had a cholecystectomy 3 months ago and has a history of pancreatitis. The patient states that his abdominal pain was coming in waves but is now constant. He notes that the pain radiates through into his upper back below his scapula and reports that he also passed a kidney stone last night. He reports that he came in 1 year ago for similar abdominal pain and he had slightly elevated lipase and pancreatitis. He complains of back pain, intermittent diarrhea, and vomiting 1 time 2 days ago. He denies any fever, nausea, abdominal pain, and changes in appetite. The patient states that he took Percocet at home that he got from his cholecystectomy for his pain without any relief of his symptoms. He notes that nothing worsens his symptoms and eating does not affect the pain. He reports that he has a history of an appendectomy. Source of History: patient Onset: 3 days ago Position: abdomen (epigastric) Timing: constant Modifying Factors (Worsening): other (none) Associated Symptoms: + back pain, + diarrhea, + vomiting, No abdominal pain , No fevers, No nausea Note: He denies any changes in appetite. Review of Systems See HPI for pertinent positives & negatives. A total of 10 systems reviewed and were otherwise negative. Past Medical & Surgical Medical Problems: (1) acute panreatitis (2) Biliary colic (3) Duodenal stricture (4) Hiatal hernia (5) Prostate cancer Surgical Problems: (1) History of appendectomy (2) History of hernia repair (3) History of kidney surgery Family History Patient reports no known family medical history. Social History Smoking Status: Never Smoker Marital Status: Housing Status: lives with family Occupation Status: employed Current/Historical Medications Scheduled Aspirin (Aspirin), 650 MG PO BID Docusate Sodium (Colace), 1 CAP PO BID Ferrous Sulfate (Ferrous Sulfate), 325 MG PO QAM Lisinopril (Prinivil), 10 MG PO QAM Magnesium (Magnesium 250 mg), 250 MG PO QAM Multivitamin (Multivitamin), 1 TAB PO QAM Psyllium (Metamucil Original Textur), 1 PKT PO QAM Ranitidine Hcl (Zantac), 150 MG PO BID Scheduled PRN Oxycodone/Acetaminophen 5MG/325MG (Percocet 5MG/325MG), 1-2 TABS PO Q4H PRN for Pain Allergies Coded Allergies: No Known Allergies (Verified , 12/24/16) Physical Exam Vital Signs Date Time Temp Pulse Resp B/P Pulse Ox O2 Delivery O2 Flow Rate FiO2 12/24/16 11:13 85 14 101/54 95 Room Air 12/24/16 10:39 70 12/24/16 08:54 85 18 98/63 96 Room Air 12/24/16 07:45 78 18 97/63 97 Room Air 12/24/16 06:53 74 12/24/16 06:28 36.7 89 18 119/75 95 Room Air Physical Exam CONSTITUTIONAL/VITAL SIGNS: Reviewed / noted above. GENERAL: Non-toxic in appearance. INTEGUMENTARY: Warm, dry, and [place]. HEAD: Normocephalic. EYES: without scleral icterus or trauma. ENT/OROPHARYNX: clear and moist. LYMPHADENOPATHY/NECK: Is supple without lymphadenopathy or meningismus. RESPIRATORY: Lungs clear and equal. CARDIOVASCULAR: Regular rate and rhythm. GI/ABDOMEN: Soft. No organomegaly or pulsatile mass. No rebound or guarding. Normal bowel sounds. Epigastric tenderness. EXTREMITIES: Warm and well perfused. BACK: No CVA tenderness. NEUROLOGICAL: Intact without focal deficits. PSYCHIATRIC: normal affect. MUSCULOSKELETAL: Normally developed with good muscle tone. Medical Decision & Procedures ER Provider Diagnostic Interpretation: Radiology results as stated below per my review and radiologist interpretation: CHEST ONE VIEW PORTABLE FINDINGS: Lung volumes are normal. There is no pneumothorax or pleural effusion. Cardiac size is normal. Mediastinal contours are normal. There is no evidence of pulmonary edema. IMPRESSION: No acute cardiopulmonary findings. Electronically signed by: Carlton See M.D. 12/24/2016 7:50 AM Dictated Date/Time: 12/24/2016 7:[address] ABD/PELVIS IV AND ORAL CONT FINDINGS: Lower chest: There is a 2 cm opacity within the left lower lobe, likely representing focal atelectatic change. Liver: There is hepatic steatosis. There is a stable 34 mm left lobe hepatic cyst Gallbladder: Unremarkable. Spleen: Normal in size and attenuation. Pancreas: Pancreatic head appears minimally edematous. Please correlate with appropriate biochemical markers to exclude mild acute pancreatitis Adrenal glands: Unremarkable. Kidneys: There is a nonobstructing left renal calculus. There are bilateral renal cortical cysts the largest of which measures 52 mm in the right and 46 mm and the left Bowel: There are no transition zones indicate bowel obstruction. There is no evidence of acute diverticulitis. The appendix is not visualized with certainty. There are no findings to indicate acute appendicitis. Peritoneum: There is no intraperitoneal free air or abdominal ascites. There is minimal infiltration of the anterior omentum, less pronounced than the prior study. This may represent fat necrosis. Vasculature: The abdominal aorta is normal in course and caliber. Adenopathy: None. Pelvic viscera: The patient appears be status post a TURP. Skeletal structures: There are postsurgical changes present within the lumbar spine IMPRESSION: 1. Subtle pancreatic head edema. Correlation with appropriate biochemical markers is recommended to exclude mild acute pancreatitis 2. Nonobstructing left renal calculus 3. Bilateral renal cysts 4. No evidence of bowel obstruction. No evidence of free air 5. No evidence of diverticulitis. No evidence of acute appendicitis 6. Diminishing infiltration of the anterior omentum Electronically signed by: Charles Wilson M.D. 12/24/2016 10:08 AM Dictated Date/Time: 12/24/2016 10:01 AM Laboratory Results 12/24/16 06:38 Red Blood Count 5.45, Mean Corpuscular Volume 86.1, Mean Corpuscular Hemoglobin 28.4, Mean Corpuscular Hemoglobin Concent 33.0, Mean Platelet Volume 9.6, Neutrophils (%) (Auto) 74.7, Lymphocytes (%) (Auto) 10.4, Monocytes (%) (Auto) 13.5, Eosinophils (%) (Auto) 1.0, Basophils (%) (Auto) 0.2, Neutrophils # (Auto ) 12.01, Lymphocytes # (Auto) 1.67, Monocytes # (Auto) 2.18, Eosinophils # (Auto ) 0.16, Basophils # (Auto) 0.03 12/24/16 06:38 Test 12/24/16 06:38 12/24/16 08:05 White Blood Count 16.09 K/uL (4.8-10.8) Red Blood Count 5.45 M/uL (4.7-6.1) Hemoglobin 15.5 g/dL (14.0-18.0) Hematocrit 46.9 % (42-52) Mean Corpuscular Volume 86.1 fL (80-100) Mean Corpuscular Hemoglobin 28.4 pg (25-34) Mean Corpuscular Hemoglobin Concent 33.0 g/dl (32-36) Platelet Count 315 K/uL (130-400) Mean Platelet Volume 9.6 fL (7.4-10.4) Neutrophils (%) (Auto) 74.7 % Lymphocytes (%) (Auto) 10.4 % Monocytes (%) (Auto) 13.5 % Eosinophils (%) (Auto) 1.0 % Basophils (%) (Auto) 0.2 % Neutrophils # (Auto) 12.01 K/uL (1.4-6.5) Lymphocytes # (Auto) 1.67 K/uL (1.2-3.4) Monocytes # (Auto) 2.18 K/uL (0.11-0.59) Eosinophils # (Auto) 0.16 K/uL (0-0.5) Basophils # (Auto) 0.03 K/uL (0-0.2) RDW Standard Deviation 51.1 fL (36.4-46.3) RDW Coefficient of Variation 16.3 % (11.5-14.5) Immature Granulocyte % (Auto) 0.2 % Immature Granulocyte # (Auto) 0.04 K/uL (0.00-0.02) Anion Gap 5.0 mmol/L (3-11) Est Creatinine Clear Calc Drug Dose 68.4 ml/min Estimated GFR () 89.2 Estimated GFR (Non- 77.0 BUN/Creatinine Ratio 20.9 (10-20) Calcium Level 9.0 mg/dl (8.5-10.1) Total Bilirubin 0.4 mg/dl (0.2-1) Direct Bilirubin 0.1 mg/dl (0-0.2) Aspartate Amino Transf (AST/SGOT) 18 U/L (15-37) Alanine Aminotransferase (ALT/SGPT) 25 U/L (12-78) Alkaline Phosphatase 103 U/L (45-117) Total Protein 7.0 gm/dl (6.4-8.2) Albumin 3.4 gm/dl (3.4-5.0) Lipase 1366 U/L (73-393) Urine Color YELLOW Urine Appearance CLEAR (CLEAR) Urine pH 5.0 (4.5-7.5) Urine Specific [place] 1.012 (1.000-1.030) Urine Protein NEG (NEG) Urine Glucose (UA) NEG (NEG) Urine Ketones NEG (NEG) Urine Occult Blood NEG (NEG) Urine Nitrite NEG (NEG) Urine Bilirubin NEG (NEG) Urine Urobilinogen NEG (NEG) Urine Leukocyte Esterase NEG (NEG) Urine WBC (Auto) 1-5 /hpf (0-5) Urine RBC (Auto) 0-4 /hpf (0-4) Urine Hyaline Casts (Auto) 1-5 /lpf (0-5) Urine Epithelial Cells (Auto) 0-5 /lpf (0-5) Urine Bacteria (Auto) NEG (NEG) Laboratory results as stated above per my review. Medications Administered Medications (Trade) Dose Ordered Sig/Cosmo Route Start Time Stop Time Status Last Admin Dose Admin Morphine Sulfate (MoRPHine SULFATE INJ) 4 mg NOW STAT IV 12/24/16 08:40 12/24/16 08:41 DC 12/24/16 08:53 4 MG ECG Indication: abdominal pain Rate (beats per minute): 77 Rhythm: normal sinus Findings: no ectopy, other (no acute injury) ED Course 0651: Previous medical records were reviewed. The patient was evaluated in room B9. A complete history and physical examination was performed. 0840: Morphine Sulfate 4mg IV. 1036: Discussed the patient's case with Dr. Brown of [facility] The patient will be evaluated for further treatment and disposition. 1047: On reevaluation, the patient is doing well. I discussed the results and findings with the patient. He verbalized agreement of the treatment plan. I spoke with Dr. Brown of the [facility] Hospitalist Service. The patient will be evaluated for further management and care. Medical Decision Differential considered: pancreatitis, hepatitis, AAA, UTI, pyelonephritis, kidney stones, diverticulitis, shingles, bowel obstruction mesenteric ischemia, intussusception,hernia, testicular torsion. This is a 66-year-old male who presents to the ED with a chief complaint of epigastric abdominal pain. The patient has had this once in the past. He did have pancreatitis based on a CT scan in the past. He has had cholecystectomy and appendectomy in the past. The patient reports onset of symptoms at 3 days ago. He has had nausea and vomiting in addition to the epigastric abdominal pain that radiates into his back. His vital signs are stable. His physical exam reveals tenderness in the epigastric area. CT scan and lipase were elevated consistent with acute pancreatitis. The patient was treated with IV morphine for pain. He states that his appetite has been normal. He denies any nausea this time. He tolerated oral contrast for his CT scan. I spoke with the patient and his about the results. The patient was seen by the hospitalist for further inpatient evaluation and care. Consults Time Called: 1026 Consulting Physician: Dr. Stephanie KATE Returned Call: [phone] Discussed the patient's case with Dr. Brown of [facility]. The patient will be evaluated for further treatment and disposition. Impression Primary Impression: Acute pancreatitis Scribe Attestation The scribe's documentation has been prepared under my direction and personally reviewed by me in its entirety. I confirm that the note above accurately reflects all work, treatment, procedures, and medical decision making performed by me. Departure Information Dispostion Being Evaluated By Hospitalist Referrals No Doctor, Assigned (PCP) Patient Instructions My [facility]
[2016-12-24] MEDS ORDERED: HydrALAZINE HCL 20 MG/ML VIAL IV. PRN (12:15)
[2016-12-24] MEDS ORDERED: ONDANSETRON INJ 2 MG/ML 2 ML VIAL IV PRN (12:15)
--- NOTE | 2016-12-24 12:22 | Progress Note ---
Progress Note Date of Service December 24, 2016. Progress Note acute pancreatitis, [id number]
[2016-12-24] MEDS: MoRPHine SULFATE 2 MG/ML CARP IV PRN ×2 (12:35→15:39)
--- NOTE | 2016-12-24 13:03 | DIAGNOSTIC IMAGING REPORT ---
BILIARY ULTRASOUND CLINICAL HISTORY: acute pancreatitis COMPARISON STUDY: 09/02/2015 FINDINGS: There is nondiagnostic visualization of the pancreas. There is a 34 mm left lobe hepatic cyst, containing septations. The gallbladder is surgically absent. The common bile duct measures 6 mm. There is no right-sided hydronephrosis. There are multiple right-sided renal cysts the largest of which measures 5 cm. IMPRESSION: 1. 34 mm septated left lobe hepatic cyst 2. Surgically absent gallbladder 3. Nondiagnostic evaluation of the pancreas 4. No ductal dilatation. Electronically signed by: Charles Wilson M.D. 12/24/2016 1:02 PM Dictated Date/Time: 12/24/2016 12:59 PM
--- NOTE | 2016-12-24 13:09 | HISTORY & PHYSICAL EXAMINATION ---
DATE OF ADMISSION: 12/24/2016 This is level 2 admission, 29 minutes. CHIEF COMPLAINT: Abdominal pain. HISTORY OF PRESENT ILLNESS: The patient is a 66-year-old white male with a significant past medical history of abdominal pain, pancreatitis, left ureter stone, history of cholecystectomy, coming into the hospital Emergency Department because of the above chief complaint. The patient reported has been 3 days of epigastric pain radiation to the right shoulder which has been getting increasingly intense associated with intermittent nauseation and vomiting. He has history of cholecystectomy 3 months ago. He took some left over Percocet for the pain then he came into the Emergency Room. He reported the pain was 9/10 and after morphine the pain is 2-3/10 for now. The patient reported did not eating heavy or fatty meals recently. Reported pain does not increase with eating food. Denied fever or chills. Denied cough, sputum, shortness of breath. Denied wheezing. Denied dysuria, urgency and frequencies. Denied facial droop, slurry speeches or local weakness. Denies skin rashes. PAST MEDICAL HISTORY: Like I mentioned in the above. Abdominal pain, pancreatitis, left ureteral calculus and cholecystectomy. SOCIAL HISTORY: Tobacco abuse disorder, social alcohol intake. Denied illicit drug abuse. ALLERGIES: No known drug allergy. MEDICATIONS: Taking at home include aspirin 650 mg p.o. b.i.d., Colace 1 tab p.o. b.i.d., ferrous sulfate 325 mg p.o. q.a.m., lisinopril 10 mg p.o. q.a.m., magnesium 250 p.o. q.a.m., multiple vitamin 1 tab p.o. q.a.m., Percocet 5/325 1-2 tab p.o. q. 4 hours p.r.n. for the pain, Metamucil 1 packet q.a.m., Zantac 150 mg p.o. b.i.d. FAMILY HISTORY: Not contributory. PHYSICAL EXAMINATION: VITAL SIGNS: Temperature is 36.7, pulse 85, respirations 14, blood pressure 101/54, pulse ox was 95% on room air. GENERAL: The patient is a white male, awake, alert and orientated, conversational, follows commands. HEAD: Normocephalic. EYES: Pupils equal, round responds to light. EARS: Ear was normal. NOSE: Normal. NECK: Supple. Thyroid no enlargement. Trachea midline. HEART: Regular rhythm S1, S2, has no murmur. LUNGS: Decreased breathing sounds. There was no wheezing, rhonchi or crackles. ABDOMEN: Soft, right upper quadrant deep tenderness. Bowel sound was positive. EXTREMITIES: Bilateral CVA was nontender. There was no bruise or ecchymosis in the abdominal skin. LABORATORY STUDIES: WBC 16, hemoglobin 15, platelet 315. Sodium 139, BUN 21, creatinine 1. AST 18, ALT 25. Lipase 366. UA was negative. IMAGING STUDIES: Include a chest x-ray no acute disease. Abdominal CT studies which shows pancreatic head edema. Possible mild acute pancreatitis. Nonobstructing left renal calculus. Bilateral renal cysts. No evidence of bowel obstruction. No evidence of diverticulitis. ASSESSMENT AND PLAN: A 66-year-old white male with the problems below: 1. Acute pancreatitis with history of pancreatitis and with a history of cholecystectomy 3 months ago. 2. Leukocytosis without fever. 3. Left renal calculus, nonobstructing. 4. History of hypertension. PLAN: The patient has obvious acute pancreatitis, etiology unknown. In previous admission, he has cholecystectomy, was seen by Dr. Salazar. Lipid profile was checked and there was no hypertriglyceridemia. There was no history of alcohol abuse problems. For now, we will keep n.p.o., will keep hydration, IV fluid, pain control by morphine. I will check a right upper quadrant ultrasound to see any abnormalities of intra- and extrahepatic biliary duct systems to see any identified gallbladder stone. I will have GI consult. Follow up labs include lipase and liver function test. Chemicals include magnesium and phosphorus. Medication could be one reason cause pancreatitis. The patient is on TRAVIS inhibitor lisinopril which is in the list may cause pancreatitis, discussed with patient about this and possible need to followup with PCP to change this medication for blood pressure if needed. Gastrointestinal prophylaxis and DVT prophylaxis is covered. Discussed with patient, answered all the questions. KENJI
[2016-12-24 13:19] VITALS: BP 116/75; PULSE 76; TEMP 36.8; O2SAT 94
[2016-12-24 13:21] VITALS: BP 116/75; PULSE 76; TEMP 36.8; Ht 172.7 cm; Wt 76.6 kg
[2016-12-24 13:29] LABS: PARTIAL THROMBOPLASTIN RATIO 1.1; PROTHROMBIN TIME (PATIENT) 10.7 SECONDS (9.0-12.0)
[2016-12-24] MEDS ORDERED: PANTOprazole INJ 40 MG in SYRINGE 0 ML IV ONE (13:30)
[2016-12-24] MEDS: NSS + 20MEQ KCL 1000ML 1,000 ML IV SCH ×2 (13:56→20:39)
[2016-12-24] MEDS ORDERED: NURSING VERBAL MED ORDER ONE (16:30)
[2016-12-24] MEDS: MoRPHine SULFATE 4 MG/ML 1 ML CARP\\VIAL IV PRN ×2 (16:44→22:28)
[2016-12-24] MEDS: HEPARIN SOD 5000 UNIT/0.5 ML CARP SQ SCH (20:37)
--- NOTE | 2016-12-24 20:39 | DIAGNOSTIC IMAGING REPORT ---
Pain MRCP CLINICAL HISTORY: Acute pancreatitis TECHNIQUE: Multiaxial MRI acquisition COMPARISON STUDY: CT abdomen and pelvis same date FINDINGS: Septated hepatic cyst. Liver is otherwise uniform. Prior cholecystectomy. Multiple bilateral renal cysts which have been described previously. Signal characteristics of the pancreas are unremarkable. There is no significant peripancreatic infiltrative change. Spleen is uniform. Bowel pattern is nonobstructive. The MRCP component of the study is unremarkable. Appears be a diverticulum of the proximal descending component of the duodenal sweep. IMPRESSION: 1. Prior cholecystectomy. 2. Multiple hepatic as well as renal cysts which of been described previously. 3. Negative pancreas. 4. Negative MRCP . Note is made of several very small to 2/3 mm cystic structures adjacent to the main pancreatic duct suggesting small cysts or IPMN. Electronically signed by: David Gotti M.D. 12/24/2016 8:38 PM Dictated Date/Time: 12/24/2016 8:32 PM
[2016-12-25] VITALS: BP 107/67; PULSE 75; TEMP 36.5; O2SAT 95
[2016-12-25] MEDS ORDERED: DiphenhydrAMINE INJ 25 MG in SYRINGE 0 ML IV PRN (00:30)
[2016-12-25] MEDS: DiphenhydrAMINE HCL 50 MG/ML VIAL IV PRN (00:49)
--- NOTE | 2016-12-25 00:49 | GASTROINTESTINAL CONSULTATION ---
DATE OF CONSULTATION: 12/24/2016 AGE: 66. SEX: Male. RACE: . ATTENDING PHYSICIAN: Dr. Brown. CONSULTING PHYSICIAN: Dr. Salazar. REASON FOR CONSULTATION: Pancreatitis. HISTORY OF PRESENT ILLNESS: Dakota Pagan is a 66-year-old male who presented to the Department of Emergency Medicine on December 24 with complaints of midepigastric abdominal pain. He does have a history of pancreatitis and stated that he was having a constant epigastric abdominal pain for the past 3 days prior to his admission. It should be noted that he did have a cholecystectomy by Dr. Bettencourt 3 months ago and has had an episode of pancreatitis in the past as well. On arrival, he stated that his pain was 8-9/10 in intensity, which radiated into his back and was constant and throbbing, aching pain. He did have associated vomiting and nausea and was treating his symptoms with Percocet at home. He states that he does not drink any alcohol and upon arrival, was noted to have a lipase level of 1366 with a white blood cell count of 16.09, hemoglobin of 15.5, hematocrit 46.9 and a platelet count of 315. His UA was normal. A CT scan of the abdomen and pelvis did show subtle pancreatic head edema and nonobstructing left renal calculus and bilateral renal cysts. No evidence of bowel obstruction or free air, no evidence of diverticulitis and a 34-mm stable left hepatic lobe cyst. A right upper quadrant ultrasound was also performed and showed again the left lobe hepatic cyst 34 mm and septated, a surgically absent gallbladder and nondiagnostic evaluation of the pancreas. He was treated with IV fluids, kept n.p.o. and given narcotic analgesics for pain control. At the time that I saw him, he states that his pain has improved slightly since his arrival, though he still has a 6/10 pain in the mid epigastric area radiating into his back and right scapula. He states that it continues to be a constant aching pain and has not been alleviated significantly with IV morphine therapy. He states that it was better controlled at home with Percocet. He denies any further complaints including jaundice, acholic stools, dark urine, pruritus, hematemesis, melena, hematochezia, fevers, chills, nausea, vomiting or other complaints. PAST MEDICAL HISTORY: Significant for pancreatitis as well as a history of duodenal stricture status post dilation, hiatal hernia, and prostate cancer. PAST SURGICAL HISTORY: Includes an appendectomy, cholecystectomy, hernia repair, and history of kidney surgery. ALLERGIES: He has no known drug allergies. MEDICATIONS: At the present time include Protonix 40 mg IV daily, heparin 5000 units subQ q. 12 hours, morphine 4 mg IV q. 4 hours p.r.n. pain, Zofran 4 mg IV q. 6 hours p.r.n. nausea, and hydralazine 20 mg IV q. 6 hours p.r.n. hypertension. SOCIAL HISTORY: He is . No tobacco, alcohol or illicit drug use. FAMILY HISTORY: Negative for GI malignancy or inflammatory bowel disease. REVIEW OF SYSTEMS: Negative x12 system review other than pertinent positives listed in the HPI. PHYSICAL EXAMINATION: VITAL SIGNS: Include a temp of 36.8, pulse 76, respirations 18, blood pressure 116/75, and pulse ox 94% on room air. GENERAL: He is awake and cooperative, in mild distress. HEAD: Normocephalic and atraumatic. EYES: Pupils equally round. Extraocular muscles are intact. ENT: External evaluation of ears and nose are normal. Oropharynx is clear. NECK: Soft and supple. There is no JVD or lymphadenopathy. CHEST: Clear to auscultation bilaterally. CARDIOVASCULAR SYSTEM: Regular rate and rhythm. ABDOMEN: Soft. Tender in the mid epigastric area and nondistended, positive bowel sounds. There is no hepatosplenomegaly or stigmata of chronic liver disease. EXTREMITIES: No clubbing, cyanosis, or edema. SKIN: Soft and pink. Good turgor. LABORATORY AND RADIOGRAPHIC STUDIES: Reviewed in the HPI. IMPRESSION: A 66-year-old male status post cholecystectomy in August, presenting with midepigastric abdominal pain and CT imaging as well as laboratory abnormalities consistent with acute pancreatitis. DIFFERENTIAL DIAGNOSIS: In acute pancreatitis for this patient includes: 1. Medication induced. 2. Viral etiology. 3. Pancreas divisum. 4. Idiopathic. 5. Retained gallstone, though less likely. PLAN: In that regard, I would recommend that the patient undergo an MRCP for further evaluation of his symptoms and to evaluate for pancreas divisum. I would also recommend that the patient be continued on narcotic analgesics, IV fluids and kept n.p.o. for symptomatic and supportive care. I will follow his clinical course and make further recommendations as needed. Once again, thanks for allowing me to participate in the care of this patient. If you have any further questions, please do not hesitate in contacting me.
[2016-12-25] MEDS: NSS + 20MEQ KCL 1000ML 1,000 ML IV SCH ×4 (03:27→22:57)
[2016-12-25 08:03] VITALS: BP 122/75; PULSE 75; TEMP 36.7; O2SAT 95
[2016-12-25 08:31] LABS: BASO % 0.4 %; BASO ABS # 0.03 K/uL (0-0.2); COMPLETE YES; HEMATOCRIT 43.1 % (42-52); IG% 0.2 %; LYMPH % 14.9 %; MEAN CELL VOLUME 86.9 fL (80-100); MEAN CORPUSCULAR HEMOGLOBIN 27.6 pg (25-34); MEAN CORPUSCULAR HGB CONC 31.8 g/dl (32-36); MEAN PLATELET VOLUME 10.4 fL (7.4-10.4); MONO % 8.9 %; NEUT % 73.6 %; PLATELET COUNT 256 K/uL (130-400); RED BLOOD COUNT 4.96 M/uL (4.7-6.1); WHITE BLOOD COUNT 8.06 K/uL (4.8-10.8)
[2016-12-25] MEDS: HEPARIN SOD 5000 UNIT/0.5 ML CARP SQ SCH ×2 (08:33→20:08)
[2016-12-25 08:39] LABS: BUN/CREATININE RATIO 25.3 (10-20); CREATININE 0.76 mg/dl (0.60-1.40); POTASSIUM 4.6 mmol/L (3.5-5.1)
--- NOTE | 2016-12-25 09:38 | Gastroenterology Progress Note ---
Progress Note Date of Service: December 25, 2016 Subjective Pt evaluation today including: conversation w/ patient, physical exam, chart review, lab review, review of studies, review of inpatient medication list Patient reports significant improvement in symptoms today. Reports mild epigastric soreness but rates his pain as "1/2" on a 0-10 scale. No nausea or vomiting. He reports he is hungry and is interested in eating. Leukocytosis has resolved. Lipase has normalized and was 376 today. MRCP was negative for divisum and choledocholithiasis. Incidental finding of duodenal sweep diverticulum. States he has not requested any pain medication. Review of Systems Constitutional: No chills, No fever Respiratory: No problem reported Cardiac: No problem reported Abdomen: + see HPI Skin: No problem reported Medications Current Inpatient Medications Medications (Trade) Dose Ordered Sig/Cosmo Route Start Time Stop Time Status Last Admin Dose Admin Ioversol (Optiray 320) 125 ml UD PRN IV 12/24/16 08:45 12/28/16 08:44 Ondansetron HCl (Zofran Inj) 4 mg Q6H PRN IV 12/24/16 12:15 01/23/17 12:14 Heparin Sodium (Porcine) 5000 unit 5,000 unit Q12H SQ 12/24/16 20:00 01/23/17 19:59 12/25/16 08:33 5,000 UNIT Potassium Chloride/Sodium Chloride 1,000 ml @ 150 mls/hr Q6H40M IV 12/24/16 13:30 01/23/17 13:29 12/25/16 03:27 150 MLS/HR Pantoprazole Sodium/Syringe (Protonix Inj/ Syringe) 10 ml @ 5 mls/min DAILY@11 IV 12/25/16 11:00 01/24/17 10:59 Hydralazine HCl (HydrALAZINE INJ) 20 mg Q6 PRN IV. 12/24/16 12:15 01/23/17 12:14 Morphine Sulfate (MoRPHine SULFATE INJ) 4 mg Q4H PRN IV 12/24/16 16:45 01/07/17 16:44 12/24/16 22:28 4 MG Diphenhydramine HCl (Benadryl Inj) 25 mg Q6H PRN IV 12/25/16 00:45 01/24/17 00:44 12/25/16 00:49 25 MG Objective Vital Signs Date Time Temp Pulse Resp B/P Pulse Ox O2 Delivery O2 Flow Rate FiO2 12/25/16 08:03 36.7 75 20 122/75 95 Room Air 12/25/16 06:39 Room Air 12/25/16 00:00 36.5 75 20 107/67 95 Room Air 12/25/16 00:00 Room Air 12/24/16 16:00 Room Air 12/24/16 13:21 36.8 76 18 116/75 Room Air 12/24/16 13:19 36.8 76 18 116/75 94 Room Air 12/24/16 12:20 76 14 109/68 95 Room Air 12/24/16 11:13 85 14 101/54 95 Room Air 12/24/16 10:39 70 Physical Exam General Appearance: no apparent distress Eyes: EOMI Respiratory/Chest: chest non-tender, lungs clear, normal breath sounds Cardiovascular: regular rate, rhythm, no gallop, no murmur Abdomen: normal bowel sounds, non tender, soft Neurologic/Psych: alert, normal mood/affect, oriented x 3 Laboratory Results Last 24 Hours Test 12/25/16 06:30 White Blood Count 8.06 K/uL Red Blood Count 4.96 M/uL Hemoglobin 13.7 g/dL Hematocrit 43.1 % Mean Corpuscular Volume 86.9 fL Mean Corpuscular Hemoglobin 27.6 pg Mean Corpuscular Hemoglobin Concent 31.8 g/dl Platelet Count 256 K/uL Mean Platelet Volume 10.4 fL Neutrophils (%) (Auto) 73.6 % Lymphocytes (%) (Auto) 14.9 % Monocytes (%) (Auto) 8.9 % Eosinophils (%) (Auto) 2.0 % Basophils (%) (Auto) 0.4 % Neutrophils # (Auto) 5.93 K/uL Lymphocytes # (Auto) 1.20 K/uL Monocytes # (Auto) 0.72 K/uL Eosinophils # (Auto) 0.16 K/uL Basophils # (Auto) 0.03 K/uL RDW Standard Deviation 52.1 fL RDW Coefficient of Variation 16.2 % Immature Granulocyte % (Auto) 0.2 % Immature Granulocyte # (Auto) 0.02 K/uL Sodium Level 142 mmol/L Potassium Level 4.6 mmol/L Chloride Level 111 mmol/L Carbon Dioxide Level 23 mmol/L Anion Gap 8.0 mmol/L Blood Urea Nitrogen 19 mg/dl Creatinine 0.76 mg/dl Est Creatinine Clear Calc Drug Dose 90.0 ml/min Estimated GFR () 108.7 Estimated GFR (Non- 93.7 BUN/Creatinine Ratio 25.3 Random Glucose 62 mg/dl Calcium Level 8.0 mg/dl Lipase 376 U/L Chemistry Specimen Hemolysis Assessment and Plan Patient is a 66 year-old male with a history of cholecystectomy admitted with epigastric pain and recurrent acute pancreatitis, now with normal lipase and improved symptoms. 1. Check IgG 4 subclasses. 2. Advance diet today. 3. Continue supportive medical management with fluid rehydration, analgesics and antiemetics as needed. 4. Abstain from alcohol.
[2016-12-25] MEDS: PANTOprazole INJ 40 MG in SYRINGE 0 ML IV SCH (10:55)
[2016-12-25] MEDS ORDERED: OXYC-57 PO (13:15)
--- NOTE | 2016-12-25 13:29 | Discharge Instructions ---
Discharge Instructions Date of Service December 25, 2016. Admission Reason for Admission: Acute Pancreatitis Discharge Discharge Diagnosis / Problem: Acute pancreatitis Discharge Goals Goal(s): Decrease discomfort, Improve function, Diagnostic testing, Therapeutic intervention Activity Recommendations Activity Limitations: resume your previous activity . Instructions / Follow-Up Instructions / Follow-Up You were admitted to the hospital after presenting with abdominal pain, nausea and vomiting. You were found to have acute pancreatitis, or inflammation of the pancreas. You were treated with IV fluids, kept nothing by mouth, and given pain medications as needed. Gastroenterology was consulted, who recommended a test called a MRCP be performed to help evaluate for possible causes of this episode. The study was negative. It did not appear to be caused by your alcohol consumption or by any gallstones. It is possible that your blood pressure medication, lisinopril, is the cause of the pancreatitis, as this drug class is commonly associated with medication-related pancreatitis. As you are now tolerating a diet and your pain is almost completely resolved, you are now medically stable for discharge. Medications: *You may take Percocet 5/325 mg 1 tablet by mouth up to every 4 hours as needed for pain. *Your lisinopril has been stopped as this may have been the offending agent causing your pancreatitis. You will need to follow up with your primary care provider regarding monitoring your blood pressure to see if you need to be on a different agent. *Continue your other home medications as prescribed. Follow up: *Follow up with your primary care provider in 1 week regarding your hospital stay and to help manage your blood pressure. Please seek medical attention if you experience fevers, chills, sweats, chest pain, shortness of breath, nausea, vomiting, lightheadedness, loss of consciousness, numbness or tingling. Current Hospital Diet Patient's current hospital diet: Regular Diet Discharge Diet Recommended Diet: Regular Diet Pending Studies Studies pending at discharge: yes List of pending studies: IgG immune studies Medical Emergencies . Who to Call and When: Medical Emergencies: If at any time you feel your situation is an emergency, please call 911 immediately. . Non-Emergent Contact Non-Emergency issues call your: Primary Care Provider Call Non-Emergent contact if: you have a fever, your pain is not controlled, your pain is worsening, your pain is unusual for you, your pain is concerning you, you have any medication questions . Past History Medical & Surgical History: (1) Acute pancreatitis . "Provider Documentation" section prepared by Sana Todd. . VTE Core Measure Inpt VTE Proph given/why not?: Unfractionated heparin SQ
[2016-12-25] MEDS ORDERED: NURSING VERBAL MED ORDER ONE (13:45)
[2016-12-25] MEDS ORDERED: OXYCODONE/ACETAMINOPHEN 5-325 TAB PO ONE (14:00)
--- NOTE | 2016-12-25 14:34 | Discharge Summary ---
Discharge Summary Date of Service December 25, 2016. (Sana Todd PA-C) Discharge Summary Admission Date: December 24, 2016 at 12:09 Discharge Date: December 25, 2016 Discharge Disposition: Home Principal Diagnosis: Acute pancreatitis Immunizations: Have You Had Influenza Vaccine: Yes Influenza Vaccine Date: Apr 07, 2012 History of Tetanus Vaccine?: Yes History of Pneumococcal: No Pneumococcal Date: Apr 07, 2012 History of Hepatitis B Vaccine: Yes Hepatitis Immunization Date: Mar 07, 1988 Consultations: Gastroenterology--Dr. Salazar (Sana Todd PA-C) Medication Reconciliation Changed Medications: Oxycodone/Acetaminophen 5MG/325MG (Percocet 5MG/325MG) Tab 1 TAB PO Q4H PRN for Pain for 3 Days, #12 TAB (Changed from: 1-2 TABS; 20; For Initial Treatment) Take 1 tablet by mouth up to every 4 hours as needed for pain. Continued Medications: Aspirin (Aspirin) 325 Mg Tab 650 MG PO BID Docusate Sodium (Colace) 100 Mg Cap 1 CAP PO BID for 30 Days, #60 CAP Ferrous Sulfate (Ferrous Sulfate) 325 Mg Tab 325 MG PO QAM Magnesium (Magnesium 250 mg) 1 Tab Tab 250 MG PO QAM Multivitamin (Multivitamin) Tab 1 TAB PO QAM, TAB Psyllium (Metamucil Original Textur) 48.57 % Pow 1 PKT PO QAM Ranitidine Hcl (Zantac) 150 Mg Tab 150 MG PO BID, TAB Discontinued Medications: Lisinopril (Prinivil) 10 Mg Tab 10 MG PO QAM, TAB Referrals At Discharge Follow up Referrals: Family Practice Referral - Within 1 Week with Kelsey Denis M.D. Discharge Exam Patient reports feeling well. He reports "less than 1 out of 10" pain in his epigastrium that is slightly worse with deep breaths. He was able to eat breakfast without any nausea, vomiting, or abdominal pain. Review of Systems: Constitutional: No chills, No fever, No sweats Eyes: No diplopia, No eye pain, No worsening of vision ENT: No hearing loss, No sore throat, No trouble swallowing Respiratory: No cough, No shortness of breath, No wheezing Cardiovascular: No chest pain, No claudication, No palpitations Abdomen: + pain (minimal), No nausea, No vomiting Musculoskeletal: No calf pain, No joint pain, No muscle pain Genitourinary - Male: No dysuria, No hematuria, No urinary retention Neurologic: No numbness/tingling, No paralysis, No weakness Integumentary: No color change, No itch, No rash Physical Exam: General Appearance: WD/WN, no apparent distress Eyes: normal inspection, PERRL, EOMI ENT: normal ENT inspection, hearing grossly normal, pharynx normal Neck: supple, no JVD, trachea midline Respiratory/Chest: lungs clear, normal breath sounds, no respiratory distress Cardiovascular: regular rate, rhythm, no gallop, no murmur Abdomen / GI: normal bowel sounds, non tender (palpation does not elicit pain), soft Extremities: normal inspection, no calf tenderness, no pedal edema Neurologic/Psychiatric: alert, normal mood/affect, oriented x 3 Skin: normal color, warm/dry, no rash (Sana Todd ., PA-C) Hospital Course 66 y/o male with a history of cholecystectomy a few months ago and hypertension who presented to the ED with abdominal pain, N/V. Acute pancreatitis--resolved -Admitted to med/surg -GI consulted, appreciate recs: IgG subclasses pending. Advance diet as tolerated. Abstain from all alcohol. -Initially kept NPO. Pt was feeling much better and diet was advanced by GI which he tolerated well -Aggressive IVF at 150 cc/hr -Morphine 2-4 mg IV q4h prn pain -Pt d/c with Percocet 5/325 q4h prn pain x 3 days for any recurrence of pain -MRCP and RUQ ultrasound essentially negative except for hepatic cysts, no obvious cause of pancreatitis. Pt drinks wine occasionally -Lisinopril could be offending agent -Lipase 1366 on arrival, down to 376 after 1 day treatment -WBC now WNL, leukocytosis resolved HTN--stable -Will stop lisinopril on discharge, can f/u with PCP as may be offending agent DVT prophylaxis -Heparin 5000 units SC q12h Code Status -Level I, FULL RESUSCITATION STATUS Total Time Spent: Greater than 30 minutes This includes examination of the patient, discharge planning, medication reconciliation, and communication with other providers. (Sana Todd ., PA-C) I agree with PA assessment and plan and have personally seen and examined pt myself Resting comfortably in bed No pain at this time TOelrating regualr diet OK for discharge home VSS Labs reviewed Abd soft NT (Jono Nuñez D.OKathleen) Discharge Instructions Please refer to the electronic Patient Visit Report (Discharge Instructions) for additional information. (Sana Todd ., PA-C) Additional Copies To Kelsey Denis M.D.
[2016-12-25] MEDS: MoRPHine SULFATE 4 MG/ML 1 ML CARP\\VIAL IV PRN ×2 (15:25→20:01)
[2016-12-25 23:22] VITALS: BP 130/74; PULSE 76; TEMP 36.8; O2SAT 94
[2016-12-26] VITALS: O2SAT 94
[2016-12-26] MEDS: MoRPHine SULFATE 4 MG/ML 1 ML CARP\\VIAL IV PRN (00:06)
[2016-12-26] MEDS: DiphenhydrAMINE HCL 50 MG/ML VIAL IV PRN (00:06)
[2016-12-26] MEDS: NSS + 20MEQ KCL 1000ML 1,000 ML IV SCH ×2 (05:41→12:10)
[2016-12-26 07:00] VITALS: BP 126/76; PULSE 61; TEMP 36.6; O2SAT 98
[2016-12-26] MEDS: HEPARIN SOD 5000 UNIT/0.5 ML CARP SQ SCH (07:49)
[2016-12-26] MEDS: PANTOprazole INJ 40 MG in SYRINGE 0 ML IV SCH (11:09)
[2016-12-26 13:28] VITALS: BP 126/76; PULSE 61; TEMP 36.6; O2SAT 98
--- NOTE | 2016-12-26 13:29 | Progress Note ---
Progress Note Date of Service December 26, 2016. (Sana Todd ., PA-C) Progress Note Originally planned for patient to be discharged on , 12/25, as he was essentially asymptomatic that morning even after eating breakfast. After lunch , however, the patient developed severe abdominal pain. He was given Percocet, which did not help, and required IV morphine. His discharge was therefore canceled. The patient was kept one more night and had pain throughout the night. Now stable for discharge on 12/26. See discharge summary and addendum. (Sana Todd ., PA-C) I agree with PA assessment and plan and have seen and Pt of for discharge home Tolerating diet VSS Labs reviewed (Jono Nuñez, Gris.O.)
== END 2016-12-26 14:24 | disposition home or self-care (01) | DRG 440 ==
LOC: ENRESERVTM → ENRESERVDT → C.EDB 06:28 → C.MS4W 12:09 → UNDOADMIN 13:03 → C.MS4W 13:03
PROVIDERS: ADMIT Hospitalist; ATTEND Hospitalist
DX: K85.90 Acute pancreatitis without necrosis or infection, unspecified (principal); F17.210 Nicotine dependence, cigarettes, uncomplicated; Z87.19 Personal history of other diseases of the digestive system; Z79.82 Long term (current) use of aspirin; Z79.899 Other long term (current) drug therapy; Z90.49 Acquired absence of other specified parts of digestive tract

== ENCOUNTER → 2017-04-07 | Outpatient (CLI) | payer OTHER ==
[~2017-04-07] MED LIST changes: +ASPI325T45 PO; -LISI10TA PO; -ONDA4TAB10 SL
[2017-04-07 14:26] LABS: HEMATOCRIT 45.5 % (42-52); MEAN CORPUSCULAR HEMOGLOBIN 28.5 pg (25-34); MEAN CORPUSCULAR HGB CONC 33.2 g/dl (32-36); MEAN PLATELET VOLUME 10.2 fL (7.4-10.4); PLATELET COUNT 273 K/uL (130-400); RED BLOOD COUNT 5.29 M/uL (4.7-6.1); WHITE BLOOD COUNT 8.05 K/uL (4.8-10.8)
[2017-04-07 14:54] LABS: BLOOD UREA NITROGEN 22 mg/dl (7-18)
[2017-04-07 14:55] LABS: ALT/SGPT 30 U/L (12-78); AST/SGOT 20 U/L (15-37); BLOOD UREA NITROGEN 20 mg/dl (7-18); BUN/CREATININE RATIO 28.8 (10-20); CALCIUM 8.6 mg/dl (8.5-10.1); CARBON DIOXIDE 26 mmol/L (21-32); CHLORIDE 112 mmol/L (98-107); CREATININE 0.71 mg/dl (0.60-1.40); GLUCOSE 100 mg/dl (70-99); POTASSIUM 3.9 mmol/L (3.5-5.1); SODIUM 143 mmol/L (136-145); URIC ACID 4.7 mg/dl (2.6-7.2)
[2017-04-07 14:58] LABS: ALKALINE PHOSPHATASE 89 U/L (45-117); CHOLESTEROL 174 mg/dl (0-200); CHOLESTEROL/HDL RATIO 3.7; HDL CHOLESTEROL 47 mg/dl; LDL CHOLESTEROL CALCULATED 95 mg/dl; PROSTATE SPECIFIC ANTIGEN < 0.010 ng/ml (0.000-4.000); TRIGLYCERIDES 162 mg/dl (0-150); VERY LOW DENSITY LIPOPROT CALC 32 mg/dl
== END | disposition home or self-care (01) ==
LOC: C.LAB 12:54
PROVIDERS: ATTEND Urology
DX: E11.65 Type 2 diabetes mellitus with hyperglycemia (principal); E78.5 Hyperlipidemia, unspecified; I10 Essential (primary) hypertension; D64.9 Anemia, unspecified; K21.9 Gastro-esophageal reflux disease without esophagitis; R53.83 Other fatigue; R94.5 Abnormal results of liver function studies; R05 Cough; E55.9 Vitamin D deficiency, unspecified; F17.200 Nicotine dependence, unspecified, uncomplicated; R73.01 Impaired fasting glucose; E88.81 Metabolic syndrome and other insulin resistance; E03.9 Hypothyroidism, unspecified; R79.0 Abnormal level of blood mineral; Z13.9 Encounter for screening, unspecified; R41.82 Altered mental status, unspecified

== ENCOUNTER → 2017-10-21 | Outpatient (CLI) | payer OTHER ==
[2017-10-21 10:24] LABS: ALBUMIN 3.6 gm/dl (3.4-5.0); ALT/SGPT 26 U/L (12-78); AST/SGOT 20 U/L (15-37); BLOOD UREA NITROGEN 20 mg/dl (7-18); CALCIUM 9.1 mg/dl (8.5-10.1); CARBON DIOXIDE 29 mmol/L (21-32); CHOLESTEROL 159 mg/dl (0-200); GLUCOSE 96 mg/dl (70-99); POTASSIUM 4.3 mmol/L (3.5-5.1); SODIUM 141 mmol/L (136-145)
[2017-10-21 10:25] LABS: BLOOD UREA NITROGEN 20 mg/dl (7-18); CREATININE 0.89 mg/dl (0.60-1.40)
[2017-10-21 10:26] LABS: HEMOGLOBIN A1C 5.9 % (4.5-5.6)
[2017-10-21 10:27] LABS: ALKALINE PHOSPHATASE 89 U/L (45-117); LDL CHOLESTEROL CALCULATED 92 mg/dl; TOTAL PROTEIN 6.7 gm/dl (6.4-8.2)
== END | disposition home or self-care (01) ==
LOC: C.LAB 09:27
PROVIDERS: ATTEND Urology
DX: I10 Essential (primary) hypertension (principal); Z13.9 Encounter for screening, unspecified; N39.3 Stress incontinence (female) (male)

== ENCOUNTER 2019-02-04 08:33 | Inpatient (IN) ==
--- NOTE | 2019-01-28 13:16 | Anesthesiology Consultation ---
Date of Service January 28, 2019 Assessment & Plan (1) Encounter for pre-operative examination: - Previous glidescope intubation. Chart Review Chart Review: Acceptable Risk for Surgery (Pending PAT testing and PCP clearance) and Patient seen in Pre Admission Testing Consults Requested medical (Dr. Flores (01/31)) Teaching & Discussion Pre-Anesthesia Teaching/Discussion Notes: Instructed NPO after midnight before surgery, except medications with 15 cc of water. Medication instructions provided according to the PAT guidelines. History Surgery Operation Date: 02/04/19 10:25 Proposed Procedures p L5-S1 Decompression and Fusion, L2-L5 Hardware Removal, Hardware Removal, Spinal Cord Monitoring - Toribio Henderson, Height/Weight Height: 5 ft 8 in Weight: 86.9 kg Allergies Allergy/AdvReac Type Severity Reaction Status Date / Time No Known Allergies Allergy Verified 01/27/19 12:39 Medications Home Medications Medication Instructions Recorded Confirmed Last Taken Anacin 1 tab PO QID PRN 05/28/18 01/27/19 06/02/18 docusate sodium [Colace] 100 mg PO BID 05/28/18 01/27/19 05/31/18 magnesium oxide 250 mg PO QAM 05/28/18 01/27/19 06/01/18 multivitamin 1 tab PO QAM 05/28/18 01/27/19 06/01/18 omeprazole 20 mg PO Q2D 05/28/18 01/27/19 06/02/18 ranitidine HCl [Zantac] 150 mg PO BID 05/28/18 01/27/19 06/01/18 losartan 100 mg PO QAM 01/27/19 01/27/19 Unknown Past Medical History Medical History Chronic back pain GERD (gastroesophageal reflux disease) History of esophageal stricture History of kidney stones History of prostate cancer Hx of acute pancreatitis Hx of headache WEATHER RELATED Hypertension Spinal stenosis Exercise / Class Metabolic Activity II 4-5 Yardwork/Stairs/Walk up hill (Cares for his adult daughter. Cares for his yard. Able to climb FOS. Denies CP or SOB. ) Past Surgical History Surgical History Difficult airway for intubation Glidescope #3, ETT #8.0 History of appendectomy History of back surgery LUMBAR - 07/25/13 - MAC #3, ETT #7.5, Grade 3 View History of cholecystectomy 09/10/16 - Glidescope #3, ETT #8.0, HiLo Oral, Grade 1 View History of colonoscopy History of esophagogastroduodenoscopy (EGD) History of hemorrhoidectomy History of herniorrhaphy INGUINAL X 2 History of prostatectomy 09/27/15 - Glidescope #3, ETT #8.0 History of removal of cyst RIGHT KIDNEY Past Anesthesia History No Hx of Anesthesia Complications and No Family Hx of Anesthesia Complications History of PONV No Hx of PONV and No Hx of Motion Sickness Social History Smoking Status: Never smoker Do You Dip or Chew Tobacco: No Hx Alcohol Use: Yes Alcohol type: wine alcohol intake frequency: a few times a month Hx Substance Use: No substance use type: does not use Review of Systems Patient denies chest pain, shortness of breath, dyspnea on exertion, cough, wheezing, palpitations. +Joint Pain (Back, Shoulders) +Acid Reflux (Controlled with current medications) Physical Exam Vital Signs BP: 142/88 P: 66 R: 16 T: 97.4 SPO2: 96% on RA ENMT Thyromental Distance: < 3.5 Finger Breadths (3) Mallampati Class: II Neck normal visual inspection and trachea midline; neck extension not limited Respiratory normal respiratory effort Auscultation: lungs clear to auscultation bilaterally Cardiovascular Rate/Rhythm: regular rate and regular rhythm Heart Sounds: no murmur Vessels: no carotid bruit Neurologic moves all extremities Psychiatric Orientation: alert and oriented x 3 Testing Electrocardiogram Date: 01/28/19 Findings: + no change from (12/24/16) Sinus rhythm with 1st degree AV block @63 bpm Chest X-Ray Date: 01/28/19 Findings: + NAD
--- NOTE | 2019-01-28 13:17 | PAT Medication Instructions ---
Medication Instructions Date of Service January 28, 2019 Home Medications Anacin 1 tab PO QID NEEDED docusate sodium [Colace] 100 mg PO BID magnesium oxide 250 mg PO QAM multivitamin 1 tab PO QAM omeprazole 20 mg PO Q2D ranitidine HCl [Zantac] 150 mg PO BID losartan 100 mg PO QAM ASK your surgeon for instructions Anacin 1 tab PO QID NEEDED DO NOT take the morning of surgery docusate sodium [Colace] 100 mg PO BID magnesium oxide 250 mg PO QAM multivitamin 1 tab PO QAM losartan 100 mg PO QAM Take morning of surgery With a small sip of water, OTHERWISE NOTHING TO EAT OR DRINK AFTER MIDNIGHT: omeprazole 20 mg PO Q2D Take evening before surgery docusate sodium [Colace] 100 mg PO BID Other Notes If you have any questions please call us at [phone] or [phone] or [phone] or [phone]
--- NOTE | 2019-01-28 14:07 | XRay Report ---
TWO VIEW CHEST CLINICAL HISTORY: Preoperative examination. FINDINGS: PA and lateral chest radiographs are compared to study dated 12/24/2016. The cardiomediastin al silhouette is unremarkable. There is mild bibasilar atelectasis. The lungs and pleural spaces are otherwise clear. There is no pneumothorax. The bony thorax appears intact. Surgical clips are noted in the upper abdomen. IMPRESSION: No active disease in the chest. Electronically signed by: Leo Cool M.D. 01/28/2019 2:06 PM
[2019-01-28 16:17] LABS: Basophils # (auto) 0.03 K/uL (0-0.2); Basophils % (auto) 0.5 %; Eosinophils # (auto) 0.19 K/uL (0-0.5); Eosinophils % (auto) 2.9 %; Hemoglobin 17.2 g/dL (14.0-18.0); Immature Granulocytes # (auto) 0.01 K/uL (0.00-0.02); Immature Granulocytes % (auto) 0.2 %; Lymphocytes # (auto) 1.58 K/uL (1.2-3.4); Mean Corpuscular Hgb Conc 33.7 g/dL (32-36); Mean Corpuscular Volume 94.1 fL (80-100); Mean Platelet Volume 10.8 fL (7.4-10.4); Monocytes # (auto) 0.72 K/uL (0.11-0.59); Neutrophils # (auto) 4.04 K/uL (1.4-6.5); Neutrophils % (auto) 61.4 %; Platelet Count 237 K/uL (130-400); RDW Coefficient of Variation 12.8 % (11.5-14.5); RDW Standard Deviation 44.1 fL (36.4-46.3); Red Blood Count 5.42 M/uL (4.7-6.1); White Blood Count 6.57 K/uL (4.8-10.8)
[2019-01-28 16:24] LABS: Appearance Urine Clear (Clear); Bilirubin Urine Negative (Negative); Blood Urine Negative (Negative); Color Urine Yellow; Glucose Urine UA Negative (Negative); Ketones Urine Negative (Negative); Leukocyte Esterase Urine Negative (Negative); Nitrite Urine Negative (Negative); Protein Urine Negative (Negative); Specific Gravity Urine 1.015 (1.000-1.030); Urobilinogen Urine Negative (Negative)
[2019-01-28 16:32] LABS: Partial Thromboplastin Time 26.9 Seconds (21.0-31.0); Prothrombin Time 10.3 Seconds (9.0-12.0)
[2019-01-28 16:34] LABS: BUN Creatinine Ratio 24.5 (10-20); Calcium 9.3 mg/dl (8.5-10.1); Creatinine Clr Calc Pharmacy 98.3 ml/min; Est GFR (African American) 107.7; Est GFR (Non-African American) 92.9; Potassium 4.7 mmol/L (3.5-5.1)
[~2019-02-04 08:33] MED LIST changes: +ACETAMINOPHEN 500 MG TAB PO SCH; -ASPI325T45 PO; +CEFAZOLIN 2000MG 2,000 MG/15 ML SYR IV SCH; +CeleBREX 200 MG CAP PO SCH; -DOCU-94 PO; -FRRS300 PO; +GABAPENTIN 300 MG PO SCH; +LR 15ML/HR IV SCH; -MAGN250T3 PO; -MULT-506 PO; -OXYC-57 PO; -PSYL48.58 PO; -RANI150T3 PO
[2019-02-04] MEDS ORDERED: DEXAMETHASONE SOD INJ 4 MG/ML VIAL ONE (10:12)
[2019-02-04] MEDS ORDERED: ROCURONIUM BROMIDE 10 MG/ML 5 ML VIAL ONE (10:12)
[2019-02-04] MEDS ORDERED: PROPOFOL IV EMULSION 10 MG/ML 20 ML VIAL IV ONE (10:12)
[2019-02-04] MEDS ORDERED: fentaNYL citrate 100 MCG/2 ML VIAL ONE ×3 (10:12→14:40)
[2019-02-04] MEDS ORDERED: ONDANSETRON INJ 2 MG/ML 2 ML VIAL ONE ×2 (10:12→13:59)
[2019-02-04] MEDS ORDERED: LIDOCAINE HCL 2% 2 ML VIAL/AMP(20MG/ML) INFIL ONE (10:12)
[2019-02-04] MEDS ORDERED: LABETALOL HCL IV 5 MG/ML 20ML IV PRN (10:13)
[2019-02-04] MEDS ORDERED: HYDROmorphone INJ 1 MG/ML SYRINGE IV PRN (10:13)
[2019-02-04] MEDS ORDERED: ONDANSETRON INJ 2 MG/ML 2 ML VIAL IV PRN ×2 (10:13→15:41)
[2019-02-04] MEDS ORDERED: ATROPINE SULFATE 0.1 MG/ML 10ML SYR IV PRN (10:13)
--- NOTE | 2019-02-04 10:16 | History & Physical Bridge Note ---
Date of Service February 04, 2019 History & Physical Bridge Note I have examined the patient, reviewed the History & Physical and in the interval since the performance of the History & Physical I have noted the following changes of clinical significance: no changes noted
--- NOTE | 2019-02-04 10:17 | History & Physical Report ---
Date of Service February 04, 2019 Assessment & Plan (1) Spinal stenosis, lumbar region with neurogenic claudication: L5-S1 decompression and fusion hardware removal L2-L5 Present on Admission?: Yes History of Present Illness Chief Complaint: Back and bilateral leg pain Primary Care Provider: Yann FloresDO Is a 68-year-old male who presents with back and bilateral leg pain. After failing extensive course of nonoperative care is here for surgical intervention. Allergies Allergy/AdvReac Type Severity Reaction Status Date / Time No Known Allergies Allergy Verified 02/04/19 09:07 Home Medications Home Medications Medication Instructions Recorded Confirmed Type Anacin 1 tab PO QID PRN 05/28/18 02/04/19 History docusate sodium [Colace] 100 mg PO BID 05/28/18 02/04/19 History magnesium oxide 250 mg PO QAM 05/28/18 02/04/19 History multivitamin 1 tab PO QAM 05/28/18 02/04/19 History omeprazole 20 mg PO Q2D 05/28/18 02/04/19 History ranitidine HCl [Zantac] 150 mg PO BID 05/28/18 02/04/19 History losartan 100 mg PO QAM 01/27/19 02/04/19 History oxycodone-acetaminophen [Percocet] 1 tab PO Q4 PRN 02/04/19 02/04/19 History Past Med/Surg History Social History Preferred Language: Taiwanese Communication Ability: Effective Beliefs That Will Affect Care: None Current Living Situation: Family Feels Safe at Home: Yes Safety Concerns: Feels Safe At This Time Smoking Status: Never smoker Do You Dip or Chew Tobacco: No Second Hand Exposure: No Hx Alcohol Use: Yes Alcohol type: wine Hx Substance Use: No Physical Exam Physical Exam: Patient is alert and oriented neurologically intact. Results & Data Vital Signs (Past 12 Hours) Vital Signs Temp Pulse Resp BP Pulse Ox 02/04/19 09:18 36.7 C 75 18 166/97 H 95
[2019-02-04] MEDS ORDERED: BUPIVACAINE/EPINEPHRINE 0.5% MPF 1:200,000 30 ML VIAL ONE (10:31)
[2019-02-04] MEDS ORDERED: BACITRACIN INJ 50,000 UNIT VIAL ONE (10:31)
[2019-02-04] MEDS ORDERED: KETAMINE HCL INJ 50 MG/ML 10 ML VIAL ONE (11:18)
[2019-02-04] MEDS ORDERED: ALBUMIN HUMAN 5% 12.5 GM/250 ML VIAL IV ONE (13:53)
[2019-02-04] MEDS ORDERED: FLOSEAL HEMOSTATIC MATRIX 10ML TOP ONE (13:53)
--- NOTE | 2019-02-04 13:56 | Operative Report ---
Post Operative Report Pre & Post Diagnosis Operation Date: 02/04/19 10:25 Pre-Op Diagnosis: Spinal stenosis, lumbar region with neurogenic claudication Post-Op Diagnosis: Spinal stenosis, lumbar region with neurogenic claudication Procedure Operation Date: 02/04/19 10:25 Actual Procedures #1 removal of posterior segmental instrumentation L2-L5. #2 exploration of fusion L2-L5 per #3 lumbar decompression with bilateral medial facetectomies and foraminotomies L5-S1. #4 posterior spinal fusion L5-S1. #5 placement of posterior instrumentation L5-S1. #6 interbody fusion L5-S1. #7 placement of peek cage 13 x 26 mm x 2 at L5-S1. #8 placement of local autograft in the posterior lateral gutters. #9 patient infuse collagen sponge combined master graft in the posterior lateral gutters and ostial amp in the interbody space. Surgeon Toribio Henderson DO Control Inspector Javier Raymond Estimated Blood Loss 250 Findings Consistent with Post-Op Diagnosis Specimens None Indications This is a 68-year-old male well-known to me that presents with above-mentioned diagnosis course of nonoperative care elected to go the above-mentioned procedure. Description of Procedure Patient was met with identified and informed consent obtained. Patient was then taken to the operative suite underwent intubation placed in a prone position the Eldon table on top of the Miquel frame. All bony prominences well-padded eyes inspected to ensure no external pressure placed upon the. This point the lumbar spine was prepped and draped in the normal sterile fashion. Sharp dissection with the assistance of Bovie cautery was performed down to and exposing the existing instrumentation at L2 L3-L4-L5 bilaterally. I also exposed the sacral ala bilaterally. Then proceed remove the hardware bilaterally exploring the fusion mass noting it to be intact. I then performed a complete laminectomy of L5 including bilateral medial facetectomies and foraminotomies addressing severe foraminal and lateral recess stenosis. Pedicle screws were then placed in L5 and S1 levels bilaterally with assistance of fluoroscopy and the probably size yumiko placed. By way of a trans-foraminal approach beginning on the left complete discectomy was performed in plate graded to subcortical being bone and a 13 x 26 mm peek cage filled with osteo-amp bone graft tapped in position. Then proceeded to the right side and inserted a second 13 x 26 mm peek cage filled with ostium bone graft in position. The rods were then compressed locked in final position bilaterally. The transverse processes of L5 and the sacral ala bur to subcortical bleeding bone. Infuse collagen sponge mass graft local autograft placed in the posterior lateral gutters. 15 round JORDYN drain inserted. The incision was then closed with 1 Vicryl in the fascia 2-0 Vicryl subcutaneously and 4 Monocryl for final skin closure. Steri-Strip sterile dressing was placed. Patient will continue to PACU stable condition. Please note Javier Raymond present throughout the entire procedure involved in patient positioning complex portions of the surgery and final skin closure. Lastly neuro monitoring was utilized throughout the procedure no changes noted I attest to the content of the Intraoperative Record and any orders documented therein. Any exceptions are noted below.
[2019-02-04] MEDS ORDERED: ESMOLOL HCL INJ 10 MG/ML 10ML VIAL IV ONE (14:03)
--- NOTE | 2019-02-04 14:30 | Fluoroscopy Report ---
FL lumbar spine 2-3V CLINICAL HISTORY: L5-S1 DECOMP/FUSION, L2-L5 HARDWARE REMOVAL COMPARISON STUDY: None FLUOROSCOPY TIME: 14 seconds NUMBER OF FLUOROSCOPIC IMAGES: 2 FINDINGS: Image intensifier was utilized for hardware removal as well as a fusion change at L5-S1. IMPRESSION: Image intensifier usage for intraoperative hardware removal and L5-S1 fusion The above report was generated using voice recognition software. It may contain grammatical, syntax or spelling errors. Electronically signed by: David Gotti M.D. 02/04/2019 2:29 PM
--- NOTE | 2019-02-04 15:37 | Anesthesiology Progress Note ---
Date of Service February 04, 2019 Anesthesia Post Procedure Vital Signs Vital Signs: Temp Pulse Pulse Resp BP BP Pulse Ox 02/04/19 15:05 36.1 C L 86 16 149/82 H 95 02/04/19 14:55 98 H 14 149/84 H 95 02/04/19 14:45 99 H 13 151/87 H 97 02/04/19 14:35 106 H 17 158/85 H 99 02/04/19 14:26 36.4 C L 97 H 15 159/92 H 98 02/04/19 09:18 36.7 C 75 18 166/97 H 95 Pain Intensity Left Leg: Pain Intensity: 6 Lower Back: Pain Intensity: 4 Transfer of Care Handoff Completed per policy Notes Mental Status: alert / awake / arousable Patient Amnestic to Procedure: Yes Nausea / Vomiting: adequately controlled Pain: adequately controlled Airway Patency, RR, SpO2: stable & adequate BP & HR: stable & adequate Hydration State: stable & adequate Anesthetic Complications: no major complications apparent
[2019-02-04] MEDS ORDERED: ACETAMINOPHEN 1,000 MG/100 ML VIAL IV PRN (15:41)
[2019-02-04] MEDS ORDERED: LORazepam 0.5 MG/1 ML VIAL IV PRN (15:41)
[2019-02-04] MEDS ORDERED: FAMOTIDINE 20 MG TAB PO PRN (15:41)
[2019-02-04] MEDS ORDERED: DO NOT ADMINISTER PNEUMOCOCCAL VACCINE PRN (15:41)
[2019-02-04] MEDS ORDERED: ACETAMINOPHEN 500 MG TAB PO PRN (15:41)
[2019-02-04] MEDS ORDERED: SOD PHOSPHATE/SOD BIPHOSPHATE ENEMA 132 ML BTL PR PRN (15:41)
[2019-02-04] MEDS ORDERED: MAGNESIUM HYDROXIDE SUSP 30 ML UDC PO PRN (15:41)
[2019-02-04] MEDS ORDERED: ONDANSETRON 4 MG TAB PO PRN (15:41)
[2019-02-04] MEDS ORDERED: DO NOT ADMINISTER FLU VACCINE PRN (15:41)
[2019-02-04] MEDS ORDERED: TRAMADOL HCL 50 MG TABLET PO PRN (15:41)
[2019-02-04] MEDS ORDERED: PROMETHAZINE HCL 12.5 MG in SODIUM CHLORIDE 0.9% 50 ML IV PRN (15:41)
[2019-02-04] MEDS ORDERED: LORazepam 0.5 MG TAB PO PRN (15:41)
[2019-02-04] MEDS ORDERED: ALUMINUM/MAGNESIUM SUSP 30 ML UDC PO PRN (15:41)
[2019-02-04] MEDS ORDERED: METOCLOPRAMIDE HCL INJ 5 MG/ML 2 ML VIAL IV PRN (15:41)
[2019-02-04] MEDS ORDERED: HYDROmorphone INJ 0.5 MG/0.5 ML SYR IV PRN (15:41)
[2019-02-04] MEDS ORDERED: BISACODYL 10 MG SUPP PR PRN (15:41)
[2019-02-04] MEDS: LACTATED RINGER'S 1,000 ML IV SCH ×2 (17:35→23:28)
[2019-02-04] MEDS: OXYCODONE HCL IR 5 MG TAB (IMMEDIATE RELEASE) PO PRN ×2 (17:38→23:06)
[2019-02-04] MEDS: KETOROLAC TROMETHAMINE 15 MG/ML VIAL IV SCH ×2 (17:39→23:28)
[2019-02-04] MEDS: CEFAZOLIN 2000MG 2,000 MG/15 ML SYR IV SCH (18:57)
[2019-02-04] MEDS: DOCUSATE SODIUM/SENNA 50/8.6MG TAB PO SCH (21:53)
[2019-02-05] MEDS: CEFAZOLIN 2000MG 2,000 MG/15 ML SYR IV SCH (02:27)
[2019-02-05] MEDS: POLYETHYLENE (MIRALAX) 17 GM PACK PO SCH ×3 (05:36→18:03)
[2019-02-05] MEDS: KETOROLAC TROMETHAMINE 15 MG/ML VIAL IV SCH ×2 (05:36→13:08)
[2019-02-05 06:56] LABS: Basophils # (auto) 0.01 K/uL (0-0.2); Basophils % (auto) 0.1 %; Hematocrit (blood only) 36.5 % (42-52); Hemoglobin 12.1 g/dL (14.0-18.0); Immature Granulocytes # (auto) 0.04 K/uL (0.00-0.02); Immature Granulocytes % (auto) 0.3 %; Lymphocytes # (auto) 1.17 K/uL (1.2-3.4); Lymphocytes % (auto) 8.9 %; Mean Corpuscular Hgb Conc 33.2 g/dL (32-36); Mean Corpuscular Volume 93.8 fL (80-100); Monocytes # (auto) 1.03 K/uL (0.11-0.59); Monocytes % (auto) 7.8 %; Neutrophils # (auto) 10.92 K/uL (1.4-6.5); Neutrophils % (auto) 82.9 %; Platelet Count 225 K/uL (130-400); RDW Coefficient of Variation 12.8 % (11.5-14.5); RDW Standard Deviation 43.7 fL (36.4-46.3); Red Blood Count 3.89 M/uL (4.7-6.1); White Blood Count 13.17 K/uL (4.8-10.8)
[2019-02-05 07:14] LABS: BUN Creatinine Ratio 23.2 (10-20); Calcium 8.7 mg/dl (8.5-10.1); Creatinine Clr Calc Pharmacy 84.7 ml/min; Est GFR (African American) 101.3; Est GFR (Non-African American) 87.4
[2019-02-05] MEDS: MULTIVITAMIN TAB PO SCH (08:24)
[2019-02-05] MEDS: DOCUSATE SODIUM 100 MG CAP PO SCH (08:24)
[2019-02-05] MEDS: MAGNESIUM OXIDE 400 MG TAB PO SCH (08:24)
[2019-02-05] MEDS: LOSARTAN POTASSIUM 50 MG TAB PO SCH (08:25)
--- NOTE | 2019-02-05 09:46 | Orthopedic Progress Note ---
Date of Service February 05, 2019 Assessment & Plan (1) Spinal stenosis, lumbar region with neurogenic claudication: This time we will continue physical therapy advance his bowel regimen anticipate discharge home Thursday. Present on Admission?: Yes Subjective Back pain is controlled leg pain markedly improved. Physical Exam Physical Exam: Patient is ambulating halls. Is good strength testing. Appears comfortable. Results & Data Vital Signs (Past 12 Hours) Vital Signs Temp Pulse Resp BP Pulse Ox 02/05/19 07:49 36.5 C 85 16 109/68 95 02/05/19 03:55 36.5 C 80 18 103/62 92 02/04/19 23:05 36.5 C 79 16 124/70 93
[2019-02-05] MEDS: OXYCODONE HCL IR 5 MG TAB (IMMEDIATE RELEASE) PO PRN ×2 (16:52→22:13)
--- NOTE | 2019-02-05 17:04 | Anesthesiology Progress Note ---
Date of Service February 05, 2019 Anesthesia Post Procedure Vital Signs Vital Signs: Temp Pulse Resp BP BP Pulse Ox 02/05/19 15:12 36.9 C 83 18 150/74 H 96 02/05/19 12:00 36.7 C 80 15 119/67 96 02/05/19 07:49 36.5 C 85 16 109/68 95 02/05/19 03:55 36.5 C 80 18 103/62 92 02/04/19 23:05 36.5 C 79 16 124/70 93 02/04/19 18:48 93 H 16 133/83 95 02/04/19 17:25 36.7 C 111 H 16 146/76 H 97 Pain Intensity Left Leg: Pain Intensity: 6 Lower Back: Pain Intensity: 4 Transfer of Care Handoff Completed per policy Notes Mental Status: alert / awake / arousable and participated in evaluation Patient Amnestic to Procedure: Yes Nausea / Vomiting: adequately controlled Pain: adequately controlled Airway Patency, RR, SpO2: stable & adequate BP & HR: stable & adequate Hydration State: stable & adequate Anesthetic Complications: no major complications apparent and Pt Satisfied with anesthetic care
[2019-02-05] MEDS: DOCUSATE SODIUM/SENNA 50/8.6MG TAB PO SCH ×2 (20:16→20:17)
[2019-02-06] MEDS: POLYETHYLENE (MIRALAX) 17 GM PACK PO SCH ×2 (00:11→05:52)
[2019-02-06] MEDS: OXYCODONE HCL IR 5 MG TAB (IMMEDIATE RELEASE) PO PRN ×5 (05:59→22:04)
[2019-02-06] MEDS: MULTIVITAMIN TAB PO SCH (08:28)
[2019-02-06] MEDS: MAGNESIUM OXIDE 400 MG TAB PO SCH (08:28)
[2019-02-06] MEDS: DOCUSATE SODIUM 100 MG CAP PO SCH (08:28)
[2019-02-06] MEDS: LOSARTAN POTASSIUM 50 MG TAB PO SCH (08:28)
[2019-02-06] MEDS ORDERED: Nursing to Pharmacy Communication ONE (10:53)
--- NOTE | 2019-02-06 11:31 | Orthopedic Progress Note ---
Date of Service February 06, 2019 Assessment & Plan (1) Spinal stenosis, lumbar region with neurogenic claudication: This time we will continue physical therapy advance his bowel regiment. He will maintain the JORDYN drain anticipate discharge home tomorrow. Present on Admission?: Yes Subjective Patient struggling with a bit more back pain today. His leg symptoms still markedly improved. Physical Exam Physical Exam: On exam he is in the chair at the bedside. He is comfortable. Is good strength testing. Results & Data Vital Signs (Past 12 Hours) Vital Signs Temp Pulse Resp BP Pulse Ox 02/06/19 07:14 36.7 C 96 H 18 125/77 92
[2019-02-06] MEDS: DOCUSATE SODIUM/SENNA 50/8.6MG TAB PO SCH (19:59)
[2019-02-07] MEDS: OXYCODONE HCL IR 5 MG TAB (IMMEDIATE RELEASE) PO PRN ×2 (05:48→08:31)
--- NOTE | 2019-02-07 07:48 | Anesthesiology Progress Note ---
Date of Service February 07, 2019 Anesthesia Post Procedure Vital Signs Vital Signs: Temp Pulse Resp BP Pulse Ox 02/07/19 07:19 36.6 C 90 18 130/81 93 02/06/19 22:28 36.6 C 84 16 114/73 94 02/06/19 15:30 37.1 C 95 H 16 94/59 L 92 Pain Intensity Left Leg: Pain Intensity: 6 Lower Back: Pain Intensity: 3 Notes Mental Status: alert / awake / arousable and participated in evaluation Patient Amnestic to Procedure: Yes Nausea / Vomiting: adequately controlled Pain: adequately controlled Airway Patency, RR, SpO2: stable & adequate BP & HR: stable & adequate Hydration State: stable & adequate Anesthetic Complications: no major complications apparent and Pt Satisfied with anesthetic care
[2019-02-07] MEDS: DOCUSATE SODIUM 100 MG CAP PO SCH (08:32)
[2019-02-07] MEDS: LOSARTAN POTASSIUM 50 MG TAB PO SCH (08:32)
[2019-02-07] MEDS: MULTIVITAMIN TAB PO SCH (08:32)
[2019-02-07] MEDS: MAGNESIUM OXIDE 400 MG TAB PO SCH (08:32)
[2019-02-07] MEDS ORDERED: PANTOprazole 40 MG TAB PO SCH (09:00)
--- NOTE | 2019-02-07 10:08 | Discharge Summary ---
Date of Service February 07, 2019 Admission HPI Per Admitting Provider Is a 68-year-old male who presents with back and bilateral leg pain. After failing extensive course of nonoperative care is here for surgical intervention. Principal Diagnosis Lumbar spinal stenosis with neurogenic claudication Discharge Data Allergies Allergy/AdvReac Type Severity Reaction Status Date / Time No Known Allergies Allergy Verified 02/04/19 09:07 Consultations 02/04/19 15:41 Consult Case Management - Discharge Planning Routine Procedures Performed Operation Date: 02/04/19 10:25 Actual Procedures p L5-S1 Decompression and Fusion, Application of Allograft and Bone Morphogenetic Protein, Spinal Cord Monitoring - Toribio Henderson DO s L2-L5 Hardware Removal - Toribio Henderson DO Ordered Studies 02/04/19 10:25 FL fluoroscopy <1hr Routine FL lumbar spine 2-3V Routine Hospital Course (1) Spinal stenosis, lumbar region with neurogenic claudication: Patient underwent lumbar decompression fusion tolerated as well as taken to orthopedic for postoperative. Postop day #1 he was up and ambulating leg pain improved. Progressed the postop day #2. Postop day #3 JORDYN drain decreasing appropriately pain print controlled subsequently discharged home. Discharge orders and instructions from the chart for further review. Total Time Total Time Spent Total Time Spent (In Minutes): 20 minutes Discharge Plan Discharge Items Patient Disposition: Home - Self-Care Reason For Visit: Radiculopathy, Lumbar Region Discharge Diagnosis: lumbar stenosis Discharge Goals: Decrease discomfort Activity: Per 'Additional Instructions' section Non-emergency contact: Primary Care Provider Call non-emergency contact if: you have any medication questions Follow-up/Referrals: Yann Flores DO [Primary Care Provider] - Diet: Regular Addtl Provider Instructions: ACTIVITY RECOMMENDATIONS: SELF CARE INSTRUCTIONS AFTER THORACIC/LUMBAR FUSIONS 1. You may walk to your tolerance. It is good exercise for your legs and back. Expect some back and intermittent leg aches and pains. 2. You may perform "counter-top" level activities (make a sandwich, valeria with a project, etc.). 3. No bending or lifting of more than 10 pounds or back twisting of any nature (roll like a log when turning in bed). 4. You may ride in a car for 20-30 minutes at a time. No driving until after your first visit with your doctor. 5. Frequent changes of position and restricting sitting to 30 minutes at a time will help limit the amount of back spasms and stiffness you may experience. 6. You may discontinue the use of ambulatory aids (cane, crutches, etc.) once your strength and confidence allow. 7. You may client business manager the shower and let water strike your incision when you arrive home at least once daily. Do not take a tub bath, sit in a hot tub or go into a swimming pool until after your first recheck in the office. SPECIAL CARE INSTRUCTIONS: VERY IMPORTANT TO READ AND REVIEW A. Your surgical incision has been closed with a cosmetic suture under the skin that will dissolve in about 6 weeks. In 14 days, you can use a pair of clean scissors and cut the suture that is left outside of the skin at the ends of your incision. 1. The small skin tapes can be removed 7 days after surgery if they have not fallen off by that point. 2. You may keep the wound open to air as much as possible to promote healing after post-op day number 5 unless told otherwise by your doctor. 3. If you think the wound looks like it is becoming infected (redness or worsening drainage) and/or you are experiencing fever, chill or worsening back pain and muscle spasms, contact the office so that we may evaluate you as soon as possible. B. Complications are uncommon, but please contact us if you have any signs or symptoms of: 1. wound infection (fever higher than 102.5 degrees F, redness, separation of wound, drainage, or increasing pain from the incision) 2. blood clots in legs (pain, swelling, redness and warmth in legs) 3. urinary tract infection (fever higher than 102.5 degrees F, burning upon urination or increased frequency of urination) 4. nerve problems (inability to walk on your toes or heels, numbness, loss of bowel or bladder control) 5. any other symptoms that concern you C. Please call the office at if you have any concerns or questions about your operation or recovery. D. No smoking! Smoking drastically decreases the chance of a solid fusion. E. Do not take any anti-inflammatory medications (Indocin, Advil, Motrin, Aspirin, Naprosyn, etc.) as these may inhibit the chance of a solid fusion. Tylenol is okay to take for pain. MANAGING PAIN AFTER SPINAL SURGERY 1. Narcotic medication is intended for short-term use and will be provided for surgical pain. Surgical pain usually lasts for a period of 4-6 weeks. Narcotic medication includes Percocet, Vicodin, Darvocet, Tylenol #3 or Lortab. 2. Longer-term pain is more appropriately treated with non-narcotic medication such as Tylenol ES. 3. Muscle spasm is not appropriately treated with narcotics. Muscle relaxers such as Soma, Flexeril or Skelaxin can be used along with Tylenol ES. 4. Remember that we all live with some "aches and pains". This is not unusual or uncommon after an injury or as we get older. a. Back pain is expected and may include muscle spasms for 4 to 6 weeks after surgery. The pain should gradually improve. If the pain worsens for no apparent reason, please contact the office. b. Intermittent leg pain may also be experienced and should not be concerned about unless it worsens for no apparent reason. If so, please contact the office. 5. We will provide appropriate medication within the normal guidelines of their prescribed use. We will also be very cautious and aware of potential abuse and extended duration of patients' medication needs. a. Pain medications are for your comfort and to assist with sleep and rest so that the tissue can heal. They are not provided in order to return to normal activity and should not be used through the day. To do so or worsening pain at night can result from ongoing tissue damage and development of tolerance to the prescribed medicine. 6. Please allow 2-3 days to process refills. Prescriptions will not be mailed but must be picked up at the office. FOLLOW UP VISIT: Keep your scheduled follow-up appointment. Any questions, please call the office at . Prescriptions: New tramadol 50 mg Tablet 50 mg PO Q4H PRN (Reason: Pain, Moderate) Qty: 30 RF: 0 oxycodone 5 mg Tablet 5 mg PO Q4H PRN (Reason: Pain, Severe) Qty: 30 RF: 0 Continued losartan 100 mg Tablet 100 mg PO QAM RF: 0 oxycodone-acetaminophen [Percocet] 5-325 mg Tablet 1 tab PO Q4 PRN (Reason: Pain) RF: 0 multivitamin Tablet 1 tab PO QAM RF: 0 ranitidine HCl [Zantac] 150 mg Tablet 150 mg PO BID RF: 0 docusate sodium [Colace] 100 mg Capsule 100 mg PO BID RF: 0 omeprazole 20 mg Capsule,Delayed Release(Dr/Ec) 20 mg PO Q2D RF: 0 magnesium oxide 250 mg Tablet 250 mg PO QAM RF: 0 Anacin 400-32 mg Tablet 1 tab PO QID PRN (Reason: Headache) RF: 0 Stand-Alone Forms: [facility] Discharge Orders: Discharge Order (Routine); Ordered 02/07/19 Ordered By: Toribio Henderson Admission Data Admit Date/Time: 02/04/19 13:59 Attending Provider: Toribio Henderson Admit Provider: Toribio Henderson Primary Care Provider: Yann Flores Service: Surgical Services
== END 2019-02-07 11:16 | disposition home or self-care (01) | DRG 455 ==
LOC: ASU 08:33 → 3E 13:59

== ENCOUNTER 2020-05-06 17:08 | Inpatient (IN) ==
[2020-05-06] MEDS ORDERED: PANTOprazole 40 MG in SYRINGE 0 ML IV ONE (17:25)
[2020-05-06] MEDS ORDERED: FAMOTIDINE 20MG IV PUSH 20 MG/5 ML SYR IV STA (17:25)
[2020-05-06] MEDS ORDERED: ONDANSETRON INJ 2 MG/ML 2 ML VIAL IV STA (17:25)
[2020-05-06] MEDS ORDERED: SODIUM CHLORIDE 0.9% 1000ML 1,000 ML IV SCH (17:30)
[2020-05-06 17:53] LABS: Basophils # (auto) 0.01 K/uL (0-0.2); Basophils % (auto) 0.1 %; Eosinophils # (auto) 0.05 K/uL (0-0.5); Eosinophils % (auto) 0.5 %; Hematocrit (blood only) 45.9 % (42-52); Hemoglobin 14.8 g/dL (14.0-18.0); Immature Granulocytes # (auto) 0.03 K/uL (0.00-0.02); Immature Granulocytes % (auto) 0.3 %; Lymphocytes % (auto) 12.9 %; Mean Corpuscular Hemoglobin 26.8 pg (25-34); Mean Corpuscular Hgb Conc 32.2 g/dL (32-36); Mean Platelet Volume 10.3 fL (7.4-10.4); Monocytes % (auto) 8.3 %; Neutrophils # (auto) 8.49 K/uL (1.4-6.5); Neutrophils % (auto) 77.9 %; Platelet Count 301 K/uL (130-400); RDW Coefficient of Variation 16.1 % (11.5-14.5); RDW Standard Deviation 48.6 fL (36.4-46.3); Red Blood Count 5.53 M/uL (4.7-6.1); White Blood Count 10.88 K/uL (4.8-10.8)
[2020-05-06] MEDS: fentaNYL citrate 100 MCG/2 ML VIAL IV PRN ×2 (17:56→18:57)
[2020-05-06 18:04] LABS: iSTAT Creatinine 0.7 mg/dl (0.6-1.3); iSTAT Ionized Calcium 1.27 mmol/l (1.12-1.32); iSTAT Potassium 3.8 mmol/L (3.3-5.0)
[2020-05-06 18:04] LABS: Partial Thromboplastin Ratio 0.9; Partial Thromboplastin Time 25.5 Seconds (21.0-31.0); Prothrombin Time 10.7 Seconds (9.0-12.0)
[2020-05-06 18:09] LABS: Alanine Aminotransferase 29 U/L (12-78); Albumin Level 3.5 gm/dl (3.4-5.0); Aspartate Aminotransferase 18 U/L (15-37); BUN Creatinine Ratio 24.3 (10-20); Blood Urea Nitrogen 22 mg/dl (7-18); Calcium 9.4 mg/dl (8.5-10.1); Carbon Dioxide 25 mmol/L (21-32); Chloride 107 mmol/L (98-107); Creatinine Clr Calc Pharmacy 77.9 ml/min; Est GFR (African American) 97.2; Est GFR (Non-African American) 83.9; Glucose 128 mg/dl (70-99); Lipase 110 U/L (73-393); Potassium 3.8 mmol/L (3.5-5.1); Sodium 142 mmol/L (136-145)
[2020-05-06 18:14] LABS: Alkaline Phosphatase 151 U/L (45-117); Bilirubin,Total 0.3 mg/dl (0.2-1); Globulin 3.4 gm/dl (2.5-4.0); Total Protein 6.9 gm/dl (6.4-8.2); Troponin I < 0.015 ng/ml (0-0.045)
--- NOTE | 2020-05-06 18:37 | Emergency Department Note ---
Impression & Plan Gastric outlet obstruction, Duodenal stricture ED Provider Note NAME: TOYA FELIPE AGE: 70 SEX: M : 1950 ARRIVES VIA: Walk-In INFORMANT: Patient, ED PROVIDER(S): Jamaal Pierce DO CHIEF COMPLAINT: Epigastric pain HPI: The patient is a 70-year-old male who presented to the emergency department for an evaluation of epigastric pain. The patient started having epigastric pain intermittently over the last few days. The pain became much worse today. The pain was worsened with food. The patient has a history of pancreatitis. He had his gallbladder removed but it did not appear to resolve his pancreatitis. The patient presents to the emergency department today with his significant other for an evaluation of epigastric pain. He denies having any fever. He does have nausea. He did not notice any lower extremity pain or swelling. He has no abdominal ecchymosis. The patient states the pain is moderate. He did try taking [id number]-[id number] medications with only partial relief. ROS: See above HPI for pertinent positives & negatives. A total of 10 systems reviewed and were otherwise negative. PAST MEDICAL HISTORY: See Below PAST SURGICAL HISTORY: See Below FAMILY HISTORY: See Below SOCIAL HISTORY: See Below HOME MEDICATIONS: See Below ALLERGIES: See Below VITALS: See Below PHYSICAL EXAMINATION: GENERAL: The patient is awake and alert. He is somewhat anxious appearing and appears to be in significant pain. EYES: The conjunctivae are clear. The pupils are round and reactive. EARS, NOSE, MOUTH AND THROAT: The nose is without any evidence of any deformity. NECK: The neck is nontender and supple. RESPIRATORY: Normal respiratory effort is noted there is no evidence of wheezing rhonchi or rales CARDIOVASCULAR: Regular rate and rhythm noted there no murmurs rubs or gallops normal S1 normal S2. GASTROINTESTINAL: The abdomen is moderately distended. There is significant tenderness especially in the epigastric region. MUSCULOSKELETAL/EXTREMITIES: There is no evidence of gross deformity full range of motion is noted in the hips and shoulders. SKIN: There is no obvious evidence of any rash. There are no petechiae, pallor or cyanosis noted. NEUROLOGIC: Patient is awake alert and oriented x3 strength is symmetric patellar reflexes are 2+ bilaterally MEDICAL DECISION MAKING: The patient is a 70-year-old male who has a history of pancreatitis who presented to the emergency department for an evaluation of upper abdominal pain. The patient had nausea but no vomiting. He had significant reproducible abdominal pain on physical exam but he was not guarding and did not appear to have a surgical abdomen. I discussed the patient's laboratory and radiographic studies with him and his significant other. I discussed his case with the on- call ski lift mechanic. I also discussed his case with the on-call [facility] hospitalist. Likely patient will require further inpatient monitoring and treatment followed by upper endoscopy to determine if the patient requires another stretching of his duodenal stricture. Triage Nursing notes reviewed. Prior medical records reviewed Vital Signs: reviewed and remarkable for elevated blood pressure. Differential diagnosis: Etiologies such as appendicitis, diverticulitis, obstruction, inflammatory bowel disease, renal colic, PUD, biliary pathology, pancreatitis, mesenteric ischemia, aortic pathology, infections, genitourinary, UTI, perforated viscus, as well as others were entertained. ER treatment provided: See below Diagnostics interpreted by me: ECG: EKG was obtained in the emergency department. My interpretation is normal sinus rhythm at 92 bpm. There is no ectopy. There was high lateral ST depression with T wave inversions noted. This was compared to a tracing from January 282018. No significant changes were noted. Cardiac Monitoring: An order was placed for continuous cardiac monitoring. The monitor shows a rate of 65 bpm with sinus rhythm. Laboratory studies: As stated above and show below. Imaging studies: See below Consultation(s): I discussed this case with Dr. Grullon who is on-call for gastroenterology. He does recommend that we observe the patient in the hospital for worsening symptoms and likely can have upper endoscopy when his condition warrants. 2000: I discussed this case with the [facility] hospitalist. Past Med/Surg History Medical History Benign prostatic hyperplasia with urinary obstruction Biliary colic Cervical spondylosis Chronic prostatitis History of colon polyps History of esophageal stricture History of kidney stones History of prostate cancer Hx of acute pancreatitis Hx of headache WEATHER RELATED Impotence, organic Stomach ulcer Urinary tract infection Surgical History Difficult airway for intubation Glidescope #3, ETT #8.0 History of appendectomy History of back surgery LUMBAR - 07/25/13 - MAC #3, ETT #7.5, Grade 3 View History of cholecystectomy 09/10/16 - Glidescope #3, ETT #8.0, HiLo Oral, Grade 1 View History of colonoscopy with polypectomy History of esophagogastroduodenoscopy (EGD) History of hemorrhoidectomy History of herniorrhaphy INGUINAL X 2 History of lumbar fusion 01/2019--Dr. Henderson--removed old hardware, new placed History of prostatectomy 09/27/15 - Glidescope #3, ETT #8.0 History of removal of cyst RIGHT KIDNEY Postoperative eye state (07/25/13) Family History Daughter Family history of reaction to anesthesia difficulty coming out of anesthesia---pt has had issues since , has a trachea Father Family hx colonic polyps Social History Smoking Status: Never smoker Second Hand Exposure: Yes (father smoked); Hx Alcohol Use: Yes Alcohol type: wine Hx Substance Use: No Preferred Language: [place] Communication Ability: Effective Garden Labourer Required: No Beliefs That Will Affect Care: None marital status: Current Living Situation: Spouse and Family Current Living Situation Comment: Lives with and daughter Feels Safe at Home: Yes Allergies Allergies Allergy/AdvReac Type Severity Reaction Status Date / Time No Known Allergies Allergy Verified 05/06/20 17:44 Home Meds Home Medications Medication Instructions Recorded Confirmed Anacin 1 tab PO QID PRN 05/28/18 05/06/20 docusate sodium [Colace] 100 mg PO BID 05/28/18 05/06/20 magnesium oxide 250 mg PO QAM 05/28/18 05/06/20 multivitamin 1 tab PO QAM 05/28/18 05/06/20 losartan 100 mg PO QAM 01/27/19 05/06/20 ibuprofen [Motrin IB] 400 mg PO Q6H PRN 06/15/19 05/06/20 metoprolol succinate 25 mg PO QAM 05/06/20 05/06/20 Previous Rx's Medication Instructions Recorded omeprazole 20 mg PO BID #60 cap 06/23/19 Results & Data (ED) Vital Signs Vital Signs - 24 hr 05/06/20 17:12 05/06/20 17:25 05/06/20 18:56 Temperature 36.4 C L Temperature Source Oral Pulse Rate 77 Pulse Rate [Apical] 66 Pulse Rhythm Regular Pulse Strength Normal Respiratory Rate 18 19 Respiratory Effort / Characteristics Non-Labored Spontaneous Non-Labored Respiratory Depth Normal Normal Respiratory Pattern Regular Blood Pressure 141/86 H Blood Pressure [Left Arm] 127/84 Blood Pressure Mean 104 Blood Pressure Mean [Left Arm] 98 Pulse Oximetry 94 96 96 Oxygen Delivery Method Room Air Room Air Room Air Sepsis Recent Fever Within 48 Hours No Sepsis New/Unexplained Change in Mental Status No Sepsis Action Taken by Nursing No Action Required 05/06/20 20:00 05/06/20 21:00 05/06/20 22:02 Temperature Temperature Source Pulse Rate 58 L Pulse Rate [Apical] 62 62 Pulse Rhythm Pulse Strength Respiratory Rate 18 16 18 Respiratory Effort / Characteristics Respiratory Depth Normal Normal Respiratory Pattern Blood Pressure 142/86 H Blood Pressure [Left Arm] 142/86 H 138/86 Blood Pressure Mean Blood Pressure Mean [Left Arm] 104 103 Pulse Oximetry 96 96 95 Oxygen Delivery Method Room Air Room Air Room Air Sepsis Recent Fever Within 48 Hours Sepsis New/Unexplained Change in Mental Status Sepsis Action Taken by Halfway Medications Current Medication List: was personally reviewed by me Laboratory Data Attestation: I reviewed the patient's lab results. Result diagrams: 05/06/20 17:43 05/06/20 17:43 Lab Results 05/06/20 05/06/20 05/06/20 Range/Units 17:43 17:43 17:43 WBC 10.88 H (4.8-10.8) K/uL RBC 5.53 (4.7-6.1) M/uL Hgb 14.8 (14.0-18.0) g/dL POC Hgb (14.0-18.0) g/dl Hct 45.9 (42-52) % POC Hct (42-52) % MCV 83.0 (80-100) fL MCH 26.8 (25-34) pg MCHC 32.2 (32-36) g/dL RDW Std Deviation 48.6 H (36.4-46.3) fL RDW Coeff of Rakel 16.1 H (11.5-14.5) % Plt Count 301 (130-400) K/uL MPV 10.3 (7.4-10.4) fL Immature Gran % (Auto) 0.3 % Neut % (Auto) 77.9 % Lymph % (Auto) 12.9 % [place] % (Auto) 8.3 % Eos % (Auto) 0.5 % Baso % (Auto) 0.1 % Neut # (Auto) 8.49 H (1.4-6.5) K/uL Lymph # (Auto) 1.40 (1.2-3.4) K/uL [place] # (Auto) 0.90 H (0.11-0.59) K/uL Eos # (Auto) 0.05 (0-0.5) K/uL Baso # (Auto) 0.01 (0-0.2) K/uL Immature Gran # (Auto) 0.03 H (0.00-0.02) K/uL PT 10.7 (9.0-12.0) Seconds INR 1.0 (0.9-1.1) APTT 25.5 (21.0-31.0) Seconds PTT Ratio 0.9 POC Sodium (135-144) mmol/L Sodium 142 (136-145) mmol/L POC Potassium (3.3-5.0) mmol/L Potassium 3.8 (3.5-5.1) mmol/L POC Chloride (101-112) mmol/L Chloride 107 (98-107) mmol/L Carbon Dioxide 25 (21-32) mmol/L POC Total CO2 (24-31) mmol/L Anion Gap 10.0 (3-11) POC Anion Gap (16-25) mmol/L POC BUN (7-18) mg/dl BUN 22 H (7-18) mg/dl Creatinine 0.91 (0.6-1.4) mg/dl POC Creatinine (0.6-1.3) mg/dl Est Cr Clr Drug Dosing 77.9 ml/min Est GFR ( Amer) 97.2 Est GFR (Non-Af Amer) 83.9 BUN/Creatinine Ratio 24.3 H (10-20) Glucose 128 H (70-99) mg/dl POC Glucose (other) (70-99) mg/dl Calcium 9.4 (8.5-10.1) mg/dl POC Ioniz Calcium Bryant (1.12-1.32) mmol/l Total Bilirubin 0.3 (0.2-1) mg/dl AST 18 (15-37) U/L ALT 29 (12-78) U/L Alkaline Phosphatase 151 H (45-117) U/L Troponin I < 0.015 (0-0.045) ng/ml Total Protein 6.9 (6.4-8.2) gm/dl Albumin 3.5 (3.4-5.0) gm/dl Globulin 3.4 (2.5-4.0) gm/dl Albumin/Globulin Ratio 1.0 (0.9-2) Lipase 110 (73-393) U/L Urine Color Urine Appearance (Clear) Urine pH (4.5-7.5) Ur Specific [place] (1.000-1.030) Urine Protein (Negative) Urine Glucose (UA) (Negative) Urine Ketones (Negative) Urine Blood (Negative) Urine Nitrite (Negative) Urine Bilirubin (Negative) Urine Urobilinogen (Negative) Ur Leukocyte Esterase (Negative) 05/06/20 05/06/20 Range/Units 17:50 18:50 WBC (4.8-10.8) K/uL RBC (4.7-6.1) M/uL Hgb (14.0-18.0) g/dL POC Hgb 16.0 (14.0-18.0) g/dl Hct (42-52) % POC Hct 47 (42-52) % MCV (80-100) fL MCH (25-34) pg MCHC (32-36) g/dL RDW Std Deviation (36.4-46.3) fL RDW Coeff of Rakel (11.5-14.5) % Plt Count (130-400) K/uL MPV (7.4-10.4) fL Immature Gran % (Auto) % Neut % (Auto) % Lymph % (Auto) % [place] % (Auto) % Eos % (Auto) % Baso % (Auto) % Neut # (Auto) (1.4-6.5) K/uL Lymph # (Auto) (1.2-3.4) K/uL [place] # (Auto) (0.11-0.59) K/uL Eos # (Auto) (0-0.5) K/uL Baso # (Auto) (0-0.2) K/uL Immature Gran # (Auto) (0.00-0.02) K/uL PT (9.0-12.0) Seconds INR (0.9-1.1) APTT (21.0-31.0) Seconds PTT Ratio POC Sodium 141 (135-144) mmol/L Sodium (136-145) mmol/L POC Potassium 3.8 (3.3-5.0) mmol/L Potassium (3.5-5.1) mmol/L POC Chloride 105 (101-112) mmol/L Chloride (98-107) mmol/L Carbon Dioxide (21-32) mmol/L POC Total CO2 24 (24-31) mmol/L Anion Gap (3-11) POC Anion Gap 17.0 (16-25) mmol/L POC BUN 23 H (7-18) mg/dl BUN (7-18) mg/dl Creatinine (0.6-1.4) mg/dl POC Creatinine 0.7 (0.6-1.3) mg/dl Est Cr Clr Drug Dosing ml/min Est GFR ( Amer) Est GFR (Non-Af Amer) BUN/Creatinine Ratio (10-20) Glucose (70-99) mg/dl POC Glucose (other) 130 H (70-99) mg/dl Calcium (8.5-10.1) mg/dl POC Ioniz Calcium Bryant 1.27 (1.12-1.32) mmol/l Total Bilirubin (0.2-1) mg/dl AST (15-37) U/L ALT (12-78) U/L Alkaline Phosphatase (45-117) U/L Troponin I (0-0.045) ng/ml Total Protein (6.4-8.2) gm/dl Albumin (3.4-5.0) gm/dl Globulin (2.5-4.0) gm/dl Albumin/Globulin Ratio (0.9-2) Lipase (73-393) U/L Urine Color Yellow Urine Appearance Clear (Clear) Urine pH 5.5 (4.5-7.5) Ur Specific [place] > 1.045 H (1.000-1.030) Urine Protein Negative (Negative) Urine Glucose (UA) Negative (Negative) Urine Ketones Negative (Negative) Urine Blood Negative (Negative) Urine Nitrite Negative (Negative) Urine Bilirubin Negative (Negative) Urine Urobilinogen Negative (Negative) Ur Leukocyte Esterase Negative (Negative) Administered Medications Fentanyl Citrate (Fentanyl Citrate 100 Mcg/2 Ml Vial) 50 mcg IV Q15M PRN PRN Reason: Pain Stop: 05/20/20 17:24 Last Admin: 05/06/20 18:57 Dose: 50 mcg Documented by: [id number] Admin: 05/06/20 17:56 Dose: 50 mcg Documented by: [id number] Discontinued Medications Pantoprazole Sodium 40 mg/ (Syringe) 10 mls @ 5 mls/min IV NOW ONE Stop: 05/06/20 17:26 Last Admin: 05/06/20 18:05 Dose: 5 mls/min Documented by: [id number] Famotidine (Pepcid 20mg Iv Push) 20 mg in 5 mls @ 2.5 mls/min IV NOW STA Stop: 05/06/20 17:26 Last Admin: 05/06/20 17:56 Dose: 2.5 mls/min Documented by: [id number] Sodium Chloride (Nss 1000ml) 1,000 mls @ 999 mls/hr IV .Q1H1M PIYUSH Stop: 05/06/20 18:30 Last Infusion: 05/06/20 18:57 Dose: 0 mls/hr Documented by: [id number] Admin: 05/06/20 17:56 Dose: 999 mls/hr Documented by: [id number] Ioversol (Ioversol 100ml) 94 ml IV ONCE ONE Stop: 05/06/20 18:43 Last Admin: 05/06/20 18:43 Dose: 94 ml Documented by: [id number] Ondansetron HCl (Ondansetron Inj 2 Mg/Ml 2 Ml Vial) 4 mg IV NOW STA Stop: 05/06/20 17:26 Last Admin: 05/06/20 17:56 Dose: 4 mg Documented by: [id number] Imaging Data Radiologist's Impression: ABDOMEN AND PELVIS CT WITH IV CONTRAST CT DOSE: 553.86 mGy.cm HISTORY: epigastric pain TECHNIQUE: Multiaxial CT images of the abdomen and pelvis were performed following the use of intravenous contrast. A dose lowering technique was utilized adhering to the principles of ALARA. COMPARISON STUDY: Abdomen and pelvis CT 06/09/2019. FINDINGS: A few bibasilar linear densities suggestive of subsegmental atelectasi s. No pneumoperitoneum. No pneumatosis. Posterior decompression fusion at L5-S1 with pedicle screws and rods. Laminectomies and evidence for hardware removal from L2 through L4. Hepatic steatosis. Stable 3.5 cm cyst within the liver. Cholecystectomy. The pancreas, spleen, and adrenal glands unremarkable. Bilateral renal hypodense lesions are again noted. These likely represent cysts. There is a punctate nonobstructing stone within the lower pole of the left kidney. No ureteral calculi. No hydronephrosis. The bladder is not well- distended but appears unremarkable. No retroperitoneal lymphadenopathy. Normal caliber abdominal aorta. 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 These remain unchanged. Distended and fluid-filled stomach and proximal duodenum. Focal area of narrowing at the pylorus which could be normal. There is a second focal area of narrowing at the distal second portion of duodenum best seen on image 171. This favors transient collapse of the normal bowel. A focal mass/stricture at the pylorus or second portion of duodenum are considered less likely but not entirely excluded. Consider follow- up endoscopy for further evaluation. The remaining loops of bowel are normal in course and caliber. Colonic diverticulosis. No evidence for acute diverticulitis. The appendix is not identified and reportedly surgically absent. IMPRESSION: 1. Distended and fluid-filled stomach with 2 focal areas of narrowing at the pylorus and distal second portion of duodenum. The areas of narrowing could be within the range normal limits. Focal stricture/masses are considered less likely but not entirely excluded. Consider follow-up endoscopy for further evaluation and to exclude the possibility of gastric outlet obstruction. 2. Hepatic steatosis. 3. Cholecystectomy. 4. Additional findings as described above. ACT 112: Negative or not required by law. Electronically signed by: Jarrod Marte M.D. 05/06/2020 7:12 PM Dictated: 05/06/201855 Transcribed: 05/06/201855 Blood Pressure Blood Pressure Findings: Elevated blood pressure Blood Pressure Disposition: further management by hospitalist Discharge Plan Visit Data Chief Complaint: Abdominal Pain Stated Complaint: SEVERE ABD PAIN,NAUSEA ED Provider: Jamaal Pierce Discharge Problem: Gastric outlet obstruction, Duodenal stricture Patient Disposition: Admitted As Inpatient Condition: Good Discharge Instructions Interventions: ED Discharge Assessment Last Done: 05/06/20 22:02 Forms Stand Alone Forms: [employer] [facility] Prescriptions Prescriptions: No Action losartan 100 mg Tablet 100 mg PO QAM RF: 0 ibuprofen [Motrin IB] 200 mg Tablet 400 mg PO Q6H PRN (Reason: Pain) RF: 0 omeprazole 20 mg capsule,delayed release(DR/EC) 20 mg PO BID Qty: 60 RF: 11 metoprolol succinate 25 mg tablet extended release 24 hr 25 mg PO QAM RF: 0 multivitamin Tablet 1 tab PO QAM RF: 0 docusate sodium [Colace] 100 mg Capsule 100 mg PO BID RF: 0 magnesium oxide 250 mg Tablet 250 mg PO QAM RF: 0 Anacin 400-32 mg Tablet 1 tab PO QID PRN (Reason: Headache) RF: 0 Referrals Referrals: Yann Flores DO [Primary Care Provider] -
[2020-05-06] MEDS ORDERED: IOVERSOL 100ml IV ONE (18:42)
--- NOTE | 2020-05-06 19:14 | CT Scan Report ---
ABDOMEN AND PELVIS CT WITH IV CONTRAST CT DOSE: 553.86 mGy.cm HISTORY: epigastric pain TECHNIQUE: Multiaxial CT images of the abdomen and pelvis were performed following the use of intrave nous contrast. A dose lowering technique was utilized adhering to the principles of ALARA. COMPARISON STUDY: Abdomen and pelvis CT 06/09/2019. FINDINGS: A few bibasilar linear densities suggestive of subsegmental atelectasis. No pneumoperitoneu m. No pneumatosis. Posterior decompression fusion at L5-S1 with pedicle screws and rods. Laminectomie s and evidence for hardware removal from L2 through L4. Hepatic steatosis. Stable 3.5 cm cyst within the liver. Cholecystectomy. The pancreas, spleen, and adrenal glands unremarkable. Bilateral renal hy podense lesions are again noted. These likely represent cysts. There is a punctate nonobstructing sto ne within the lower pole of the left kidney. No ureteral calculi. No hydronephrosis. The bladder is n ot well-distended but appears unremarkable. No retroperitoneal lymphadenopathy. Normal caliber abdomi nal aorta. 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 These remain unchanged. Distended and fluid-filled stomach and proximal duodenum. Focal area of narrowing at the pylorus which could be normal. There is a second focal area of narrowing at the distal second portion of duodenum best seen on image 171. This favors transient collapse of the normal bowel. A focal mass /stricture at the pylorus or second portion of duodenum are considered less likely but not entirely e xcluded. Consider follow-up endoscopy for further evaluation. The remaining loops of bowel are normal in course and caliber. Colonic diverticulosis. No evidence for acute diverticulitis. The appendix is not identified and reportedly surgically absent. IMPRESSION: 1. Distended and fluid-filled stomach with 2 focal areas of narrowing at the pylorus and distal secon d portion of duodenum. The areas of narrowing could be within the range normal limits. Focal strictur e/masses are considered less likely but not entirely excluded. Consider follow-up endoscopy for furth er evaluation and to exclude the possibility of gastric outlet obstruction. 2. Hepatic steatosis. 3. Cholecystectomy. 4. Additional findings as described above. ACT 112: Negative or not required by law. Electronically signed by: Jarrod Marte M.D. 05/06/2020 7:12 PM
[2020-05-06 20:00] LABS: Appearance Urine Clear (Clear); Bilirubin Urine Negative (Negative); Blood Urine Negative (Negative); Color Urine Yellow; Glucose Urine UA Negative (Negative); Ketones Urine Negative (Negative); Leukocyte Esterase Urine Negative (Negative); Nitrite Urine Negative (Negative); Protein Urine Negative (Negative); Specific Gravity Urine > 1.045 (1.000-1.030); Urobilinogen Urine Negative (Negative); pH Urine 5.5 (4.5-7.5)
--- NOTE | 2020-05-06 21:11 | History & Physical Report ---
Date of Service May 06, 2020 Assessment & Plan (1) Gastric outlet obstruction: 70-year-old male with past medical history hypertension, GERD, celiac disease presents with concern of epigastric abdominal pain found to have concern for gastric outlet obstruction on abdominal pelvic CT. Epigastric abdominal pain Abdomen/pelvis CT: Distended and fluid-filled stomach with 2 focal areas of narrowing at the pylorus and distal second portion of duodenum. The areas of narrowing could be within the range normal limits. Focal stricture/masses are considered less likely but not entirely excluded Etiology of possible gastric outlet obstruction: Malignant obstruction versus PUD versus chronic pancreatitis Patient refused NG tube placement at present We will make patient n.p.o. Aspiration precautions ordered IVF with NSS@80 mls/hr IV Protonix Electrolyte repletion as needed Cautious use of narcotics for pain control IV Zofran PRN nausea Appreciate GI consult for consideration of EGD for further evaluation and to exclude the possibility of gastric outlet obstruction Hypertension Holding home losartan, metoprolol succinate FEN/GI: NSS@80. N.p.o. DVT prophylaxis: Chemoprophylaxis deferred. SCDs Full code Dispo: MedSurg History of Present Illness Chief Complaint: Abdominal pain Primary Care Provider: Yann Flores DO 70-year-old male with past medical history hypertension, GERD, celiac disease presents with concern of epigastric abdominal pain as been ongoing since yesterday around 3 PM. It has worsened and thus patient presented to ED today. Pain described as constant with bloating sensation, nonradiating. Abdominal pain exacerbated by any food intake. Patient took [id number] antacids and Motrin with no alleviation of symptoms. Patient notes that he had similar occurrence about 4 years ago that required EGD intervention with pyloric disten tion. Also notes a history of pancreatitis, however this does not feel similar to that. Associated nausea, but patient otherwise denies any fevers, chills, sweats, vomiting, diarrhea black/tarry stools, decreased appetite, chest pain, shortness of breath, headache, urinary symptoms, sick contacts or recent travel anywhere. Patient no other acute concerns or complaints. Pertinent labs: Alk phos 151, troponin negative, lipase WNL 110, otherwise largely unremarkable Abdomen/pelvis CT: Distended and fluid-filled stomach with 2 focal areas of narrowing at the pylorus and distal second portion of duodenum. The areas of narrowing could be within the range normal limits. Focal stricture/masses are considered less likely but not entirely excluded. Hepatic steatosis. ER course: IV famotidine 20 mg, IV fentanyl 50mcg, IV Zofran 4 MG, IV pantoprazole 40 mg, NSS 1 L Abdominal surgical history: Cholecystectomy, appendectomy, polypectomy Allergies Allergy/AdvReac Type Severity Reaction Status Date / Time No Known Allergies Allergy Verified 05/06/20 17:44 Home Medications Home Medications Medication Instructions Recorded Confirmed Type Anacin 1 tab PO QID PRN 05/28/18 05/06/20 History docusate sodium [Colace] 100 mg PO BID 05/28/18 05/06/20 History magnesium oxide 250 mg PO QAM 05/28/18 05/06/20 History multivitamin 1 tab PO QAM 05/28/18 05/06/20 History losartan 100 mg PO QAM 01/27/19 05/06/20 History ibuprofen [Motrin IB] 400 mg PO Q6H PRN 06/15/19 05/06/20 History omeprazole 20 mg PO BID #60 cap 06/23/19 05/06/20 Rx metoprolol succinate 25 mg PO QAM 05/06/20 05/06/20 History Past Med/Surg History Medical History Benign prostatic hyperplasia with urinary obstruction Biliary colic Cervical spondylosis Chronic prostatitis History of colon polyps History of esophageal stricture History of kidney stones History of prostate cancer Hx of acute pancreatitis Hx of headache WEATHER RELATED Impotence, organic Stomach ulcer Urinary tract infection Surgical History Difficult airway for intubation Glidescope #3, ETT #8.0 History of appendectomy History of back surgery LUMBAR - 07/25/13 - MAC #3, ETT #7.5, Grade 3 View History of cholecystectomy 09/10/16 - Glidescope #3, ETT #8.0, HiLo Oral, Grade 1 View History of colonoscopy with polypectomy History of esophagogastroduodenoscopy (EGD) History of hemorrhoidectomy History of herniorrhaphy INGUINAL X 2 History of lumbar fusion 01/2019--Dr. Henderson--removed old hardware, new placed History of prostatectomy 09/27/15 - Glidescope #3, ETT #8.0 History of removal of cyst RIGHT KIDNEY Postoperative eye state (07/25/13) Family History Daughter Family history of reaction to anesthesia difficulty coming out of anesthesia---pt has had issues since , has a trachea Father Family hx colonic polyps Social History Smoking Status: Never smoker Second Hand Exposure: Yes (father smoked); Hx Alcohol Use: Yes Alcohol type: wine Hx Substance Use: No Preferred Language: Martiniquais Communication Ability: Effective Tag And Label Cutter Required: No Beliefs That Will Affect Care: None marital status: Current Living Situation: Spouse and Family Current Living Situation Comment: Lives with and daughter Feels Safe at Home: Yes Assistive Devices: Glasses Review of Systems Review of Systems: All systems reviewed & are unremarkable except as noted in HPI & below Physical Exam Constitutional: WD/WN, vitals as above Eyes: PERRL, conjunctivae normal, anicteric sclerae ENMT: external ear and nose normal, oropharynx normal Respiratory: normal respiratory effort, lungs clear to auscultation Cardiovascular: RRR, no murmur, no edema Gastrointestinal (Abdomen): Inspection/Auscultation: + abdomen distended Percussion/Palpation: + abdomen tender (Mild epigastric); no guarding Skin: no rashes, warm and dry Psychiatric: A+Ox3, euthymic affect Results & Data Results & Data ([facility]) Vital Signs (Past 12 Hours) Vital Signs Temp Pulse Pulse Resp BP BP Pulse Ox 05/06/20 20:00 62 18 142/86 H 96 05/06/20 18:56 66 19 127/84 96 05/06/20 17:25 96 05/06/20 17:12 36.4 C L 77 18 141/86 H 94 Laboratory Results Laboratory Results - last 24 hr 05/06/20 05/06/20 05/06/20 17:43 17:43 17:43 WBC 10.88 H RBC 5.53 Hgb 14.8 POC Hgb Hct 45.9 POC Hct MCV 83.0 MCH 26.8 MCHC 32.2 RDW Std Deviation 48.6 H RDW Coeff of Rakel 16.1 H Plt Count 301 MPV 10.3 Immature Gran % (Auto) 0.3 Neut % (Auto) 77.9 Lymph % (Auto) 12.9 [place] % (Auto) 8.3 Eos % (Auto) 0.5 Baso % (Auto) 0.1 Neut # (Auto) 8.49 H Lymph # (Auto) 1.40 [place] # (Auto) 0.90 H Eos # (Auto) 0.05 Baso # (Auto) 0.01 Immature Gran # (Auto) 0.03 H PT 10.7 INR 1.0 APTT 25.5 PTT Ratio 0.9 POC Sodium Sodium 142 POC Potassium Potassium 3.8 POC Chloride Chloride 107 Carbon Dioxide 25 POC Total CO2 Anion Gap 10.0 POC Anion Gap POC BUN BUN 22 H Creatinine 0.91 POC Creatinine Est Cr Clr Drug Dosing 77.9 Est GFR ( Amer) 97.2 Est GFR (Non-Af Amer) 83.9 BUN/Creatinine Ratio 24.3 H Glucose 128 H POC Glucose (other) Calcium 9.4 POC Ioniz Calcium Bryant Total Bilirubin 0.3 AST 18 ALT 29 Alkaline Phosphatase 151 H Troponin I < 0.015 Total Protein 6.9 Albumin 3.5 Globulin 3.4 Albumin/Globulin Ratio 1.0 Lipase 110 Urine Color Urine Appearance Urine pH Ur Specific Douglas Urine Protein Urine Glucose (UA) Urine Ketones Urine Blood Urine Nitrite Urine Bilirubin Urine Urobilinogen Ur Leukocyte Esterase 05/06/20 05/06/20 17:50 18:50 WBC RBC Hgb POC Hgb 16.0 Hct POC Hct 47 MCV MCH MCHC RDW Std Deviation RDW Coeff of Rakel Plt Count MPV Immature Gran % (Auto) Neut % (Auto) Lymph % (Auto) [place] % (Auto) Eos % (Auto) Baso % (Auto) Neut # (Auto) Lymph # (Auto) [place] # (Auto) Eos # (Auto) Baso # (Auto) Immature Gran # (Auto) PT INR APTT PTT Ratio POC Sodium 141 Sodium POC Potassium 3.8 Potassium POC Chloride 105 Chloride Carbon Dioxide POC Total CO2 24 Anion Gap POC Anion Gap 17.0 POC BUN 23 H BUN Creatinine POC Creatinine 0.7 Est Cr Clr Drug Dosing Est GFR ( Amer) Est GFR (Non-Af Amer) BUN/Creatinine Ratio Glucose POC Glucose (other) 130 H Calcium POC Ioniz Calcium Bryant 1.27 Total Bilirubin AST ALT Alkaline Phosphatase Troponin I Total Protein Albumin Globulin Albumin/Globulin Ratio Lipase Urine Color Yellow Urine Appearance Clear Urine pH 5.5 Ur Specific Douglas > 1.045 H Urine Protein Negative Urine Glucose (UA) Negative Urine Ketones Negative Urine Blood Negative Urine Nitrite Negative Urine Bilirubin Negative Urine Urobilinogen Negative Ur Leukocyte Esterase Negative Medications Administered Current Inpatient Medications Fentanyl Citrate (Fentanyl Citrate 100 Mcg/2 Ml Vial) 50 mcg IV Q15M PRN PRN Reason: Pain Stop: 05/20/20 17:24 Last Admin: 05/06/20 18:57 Dose: 50 mcg Documented by: Code Status & VTE Plan Code Status FULL Supervising Physician Co-Signing Physician Notes Attending addendum: I have physically seen this patient, have supervised the medical residents activities, and agree with the H&P unless as otherwise noted. Assessment and Plan: Gastric outlet obstruction- CT demonstrates distended and fluid-filled stomach with 2 focal areas of narrowing at the pylorus and distal second portion of duodenum NPO Protonix 40 mg IV daily NSS 80 mils per hour Zofran 4 mg IV every 6 hours PRN Consult GI for possible endoscopy Remainder of orders and notations as noted Resident Activity Tracking Resident Involvement: Resident Care Provided Care Provided: Adult Hospital Medicine
[2020-05-06] MEDS ORDERED: DiphenhydrAMINE HCL 50 MG/ML VIAL IV PRN (22:41)
[2020-05-06] MEDS ORDERED: MoRPHine SULFATE 4 MG/ML 1 ML CARP\\VIAL IV PRN (22:41)
[2020-05-06] MEDS ORDERED: ONDANSETRON INJ 2 MG/ML 2 ML VIAL IV PRN (22:41)
[2020-05-06] MEDS: SODIUM CHLORIDE 0.9% 1000ML 1,000 ML IV SCH (23:45)
[2020-05-07 05:41] LABS: Basophils # (auto) 0.02 K/uL (0-0.2); Basophils % (auto) 0.2 %; Eosinophils # (auto) 0.15 K/uL (0-0.5); Eosinophils % (auto) 1.8 %; Hematocrit (blood only) 45.8 % (42-52); Hemoglobin 14.7 g/dL (14.0-18.0); Immature Granulocytes # (auto) 0.01 K/uL (0.00-0.02); Immature Granulocytes % (auto) 0.1 %; Lymphocytes # (auto) 2.85 K/uL (1.2-3.4); Lymphocytes % (auto) 33.3 %; Mean Corpuscular Hgb Conc 32.1 g/dL (32-36); Mean Corpuscular Volume 84.2 fL (80-100); Monocytes # (auto) 0.85 K/uL (0.11-0.59); Monocytes % (auto) 9.9 %; Neutrophils # (auto) 4.67 K/uL (1.4-6.5); Neutrophils % (auto) 54.7 %; Platelet Count 272 K/uL (130-400); RDW Coefficient of Variation 16.1 % (11.5-14.5); RDW Standard Deviation 49.5 fL (36.4-46.3); Red Blood Count 5.44 M/uL (4.7-6.1); White Blood Count 8.55 K/uL (4.8-10.8)
[2020-05-07 06:20] LABS: BUN Creatinine Ratio 23.9 (10-20); Calcium 8.5 mg/dl (8.5-10.1); Creatinine Clr Calc Pharmacy 93.3 ml/min; Est GFR (African American) 105.6; Est GFR (Non-African American) 91.1
[2020-05-07] MEDS: PANTOprazole 40 MG in SYRINGE 0 ML IV SCH ×2 (07:31→21:06)
--- NOTE | 2020-05-07 09:20 | Electrocardiogram Report ---
Test Reason : Blood Pressure : / mmHG Vent. Rate : 072 BPM Atrial Rate : 072 BPM P-R Int : 230 ms QRS Dur : 086 ms QT Int : 382 ms P-R-T Axes : 055 058 086 degrees QTc Int : 418 ms Sinus rhythm with 1st degree A-V block Otherwise normal ECG When compared with ECG of 28-JAN-2019 13:49, No significant change was found Confirmed by Ramón Singh ([id number]) on 05/07/2020 9:20:08 AM Referred By: REFERRED SELF Confirmed By:Ramón Singh
--- NOTE | 2020-05-07 09:40 | Hospitalist Progress Note ---
Date of Service May 07, 2020 Assessment & Plan (1) Gastric outlet obstruction: * Abdomen/pelvis CT: Distended and fluid-filled stomach with 2 focal areas of narrowing at the pylorus and distal second portion of duodenum. The areas of narrowing could be within the range normal limits. Focal stricture/masses are considered less likely but not entirely excluded * Etiology of possible gastric outlet obstruction: Malignant obstruction versus PUD versus chronic pancreatitis. Patient had history of stenosis requiring EGD with dilation approx 4 years ago. * No NGT at this time per patient request * Continue IVF for now, NS @80cc/hr * NPO * COVID negative * PPI BID * GI consulted -- appreciate assistance * pain control, antiemetics prn * EGD later today with GI (2) Celiac disease: * Given recurrent issues of duodenal inflammation and stricturing, I think it may be prudent to encourage patient to be more aggressive in the treatment of his Celiac Disease --> continue to recommend 100% gluten-free diet and will order gluten free when able to eat (3) Hypertension: * Chronic. Stable. Holding losartan, metoprolol as NPO as above. BP stable at 147/84 * Resume BP meds once able to tolerate PO (4) DVT prophylaxis: * SCDs Dispo: EGD this afternoon Admission and Anticipated Discharge Date Admission Date: May 06, 2020 Subjective Patient evaluated this morning. No further pain noted, but central discomfort. Had worsened previously with food but has not been eating since admission in anticipation for intervention. Has been moving his bowels. Previous EGD approximately 4 years ago for pyloric stenosis and feels similar to this. Unlike previous bouts of pancreatitis. Nausea but no vomiting. Plans for EGD this afternoon with GI. Denies fever, chills, chest pain, shortness of breath, abdominal pain, constipation, dysuria. Had history of prostate ca in the past with resection and did not require any radiation. Review of Systems Review of Systems: All systems reviewed & are unremarkable except as noted in HPI & below Physical Exam Constitutional: WD/WN, vitals as above no acute distress reading a book upon entry to room Eyes: + anicteric sclerae; no conjunctival abnormality ENMT: Ears: no hearing impairment Nose: no external nose abnormality Neck: normal visual inspection Respiratory: normal respiratory effort, lungs clear to auscultation Cardiovascular: RRR, no murmur, no edema Gastrointestinal (Abdomen): Inspection/Auscultation: + abdomen distended and normal bowel sounds Percussion/Palpation: abdomen soft; abdomen nontender, no guarding and abdomen not rigid Skin: warm, dry Psychiatric: Orientation: alert and oriented x 3 Results & Data Results & Data ([facility]) Vital Signs (Past 12 Hours) Vital Signs Temp Pulse Pulse Pulse Resp BP BP 05/07/20 06:35 36.3 C L 59 L 19 147/84 H 05/06/20 22:22 36.8 C 58 L 16 166/89 H 05/06/20 22:02 58 L 18 142/86 H Pulse Ox 05/07/20 06:35 96 05/06/20 22:22 98 05/06/20 22:02 95 Laboratory Results 05/07/20 05/07/20 05/06/20 Range/Units 05:27 05:27 18:50 WBC 8.55 (4.8-10.8) K/uL RBC 5.44 (4.7-6.1) M/uL Hgb 14.7 (14.0-18.0) g/dL POC Hgb (14.0-18.0) g/dl Hct 45.8 (42-52) % POC Hct (42-52) % MCV 84.2 (80-100) fL MCH 27.0 (25-34) pg MCHC 32.1 (32-36) g/dL RDW Std Deviation 49.5 H (36.4-46.3) fL RDW Coeff of Rakel 16.1 H (11.5-14.5) % Plt Count 272 (130-400) K/uL MPV 10.0 (7.4-10.4) fL Immature Gran % (Auto) 0.1 % Neut % (Auto) 54.7 % Lymph % (Auto) 33.3 % [place] % (Auto) 9.9 % Eos % (Auto) 1.8 % Baso % (Auto) 0.2 % Neut # (Auto) 4.67 (1.4-6.5) K/uL Lymph # (Auto) 2.85 (1.2-3.4) K/uL [place] # (Auto) 0.85 H (0.11-0.59) K/uL Eos # (Auto) 0.15 (0-0.5) K/uL Baso # (Auto) 0.02 (0-0.2) K/uL Immature Gran # (Auto) 0.01 (0.00-0.02) K/uL PT (9.0-12.0) Seconds INR (0.9-1.1) APTT (21.0-31.0) Seconds PTT Ratio POC Sodium (135-144) mmol/L Sodium 144 (136-145) mmol/L POC Potassium (3.3-5.0) mmol/L Potassium 4.0 (3.5-5.1) mmol/L POC Chloride (101-112) mmol/L Chloride 111 H (98-107) mmol/L Carbon Dioxide 29 (21-32) mmol/L POC Total CO2 (24-31) mmol/L Anion Gap 4.0 (3-11) POC Anion Gap (16-25) mmol/L POC BUN (7-18) mg/dl BUN 18 (7-18) mg/dl Creatinine 0.76 (0.6-1.4) mg/dl POC Creatinine (0.6-1.3) mg/dl Est Cr Clr Drug Dosing 93.3 ml/min Est GFR ( Amer) 105.6 Est GFR (Non-Af Amer) 91.1 BUN/Creatinine Ratio 23.9 H (10-20) Glucose 96 (70-99) mg/dl POC Glucose (other) (70-99) mg/dl Calcium 8.5 (8.5-10.1) mg/dl POC Ioniz Calcium Bryant (1.12-1.32) mmol/l Total Bilirubin (0.2-1) mg/dl AST (15-37) U/L ALT (12-78) U/L Alkaline Phosphatase (45-117) U/L Troponin I (0-0.045) ng/ml Total Protein (6.4-8.2) gm/dl Albumin (3.4-5.0) gm/dl Globulin (2.5-4.0) gm/dl Albumin/Globulin Ratio (0.9-2) Lipase (73-393) U/L Urine Color Yellow Urine Appearance Clear (Clear) Urine pH 5.5 (4.5-7.5) Ur Specific [place] > 1.045 H (1.000-1.030) Urine Protein Negative (Negative) Urine Glucose (UA) Negative (Negative) Urine Ketones Negative (Negative) Urine Blood Negative (Negative) Urine Nitrite Negative (Negative) Urine Bilirubin Negative (Negative) Urine Urobilinogen Negative (Negative) Ur Leukocyte Esterase Negative (Negative) 05/06/20 05/06/20 05/06/20 Range/Units 17:50 17:43 17:43 WBC (4.8-10.8) K/uL RBC (4.7-6.1) M/uL Hgb (14.0-18.0) g/dL POC Hgb 16.0 (14.0-18.0) g/dl Hct (42-52) % POC Hct 47 (42-52) % MCV (80-100) fL MCH (25-34) pg MCHC (32-36) g/dL RDW Std Deviation (36.4-46.3) fL RDW Coeff of Rakel (11.5-14.5) % Plt Count (130-400) K/uL MPV (7.4-10.4) fL Immature Gran % (Auto) % Neut % (Auto) % Lymph % (Auto) % [place] % (Auto) % Eos % (Auto) % Baso % (Auto) % Neut # (Auto) (1.4-6.5) K/uL Lymph # (Auto) (1.2-3.4) K/uL [place] # (Auto) (0.11-0.59) K/uL Eos # (Auto) (0-0.5) K/uL Baso # (Auto) (0-0.2) K/uL Immature Gran # (Auto) (0.00-0.02) K/uL PT 10.7 (9.0-12.0) Seconds INR 1.0 (0.9-1.1) APTT 25.5 (21.0-31.0) Seconds PTT Ratio 0.9 POC Sodium 141 (135-144) mmol/L Sodium 142 (136-145) mmol/L POC Potassium 3.8 (3.3-5.0) mmol/L Potassium 3.8 (3.5-5.1) mmol/L POC Chloride 105 (101-112) mmol/L Chloride 107 (98-107) mmol/L Carbon Dioxide 25 (21-32) mmol/L POC Total CO2 24 (24-31) mmol/L Anion Gap 10.0 (3-11) POC Anion Gap 17.0 (16-25) mmol/L POC BUN 23 H (7-18) mg/dl BUN 22 H (7-18) mg/dl Creatinine 0.91 (0.6-1.4) mg/dl POC Creatinine 0.7 (0.6-1.3) mg/dl Est Cr Clr Drug Dosing 77.9 ml/min Est GFR ( Amer) 97.2 Est GFR (Non-Af Amer) 83.9 BUN/Creatinine Ratio 24.3 H (10-20) Glucose 128 H (70-99) mg/dl POC Glucose (other) 130 H (70-99) mg/dl Calcium 9.4 (8.5-10.1) mg/dl POC Ioniz Calcium Bryant 1.27 (1.12-1.32) mmol/l Total Bilirubin 0.3 (0.2-1) mg/dl AST 18 (15-37) U/L ALT 29 (12-78) U/L Alkaline Phosphatase 151 H (45-117) U/L Troponin I < 0.015 (0-0.045) ng/ml Total Protein 6.9 (6.4-8.2) gm/dl Albumin 3.5 (3.4-5.0) gm/dl Globulin 3.4 (2.5-4.0) gm/dl Albumin/Globulin Ratio 1.0 (0.9-2) Lipase 110 (73-393) U/L Urine Color Urine Appearance (Clear) Urine pH (4.5-7.5) Ur Specific [place] (1.000-1.030) Urine Protein (Negative) Urine Glucose (UA) (Negative) Urine Ketones (Negative) Urine Blood (Negative) Urine Nitrite (Negative) Urine Bilirubin (Negative) Urine Urobilinogen (Negative) Ur Leukocyte Esterase (Negative) 05/06/20 Range/Units 17:43 WBC 10.88 H (4.8-10.8) K/uL RBC 5.53 (4.7-6.1) M/uL Hgb 14.8 (14.0-18.0) g/dL POC Hgb (14.0-18.0) g/dl Hct 45.9 (42-52) % POC Hct (42-52) % MCV 83.0 (80-100) fL MCH 26.8 (25-34) pg MCHC 32.2 (32-36) g/dL RDW Std Deviation 48.6 H (36.4-46.3) fL RDW Coeff of Rakel 16.1 H (11.5-14.5) % Plt Count 301 (130-400) K/uL MPV 10.3 (7.4-10.4) fL Immature Gran % (Auto) 0.3 % Neut % (Auto) 77.9 % Lymph % (Auto) 12.9 % [place] % (Auto) 8.3 % Eos % (Auto) 0.5 % Baso % (Auto) 0.1 % Neut # (Auto) 8.49 H (1.4-6.5) K/uL Lymph # (Auto) 1.40 (1.2-3.4) K/uL [place] # (Auto) 0.90 H (0.11-0.59) K/uL Eos # (Auto) 0.05 (0-0.5) K/uL Baso # (Auto) 0.01 (0-0.2) K/uL Immature Gran # (Auto) 0.03 H (0.00-0.02) K/uL PT (9.0-12.0) Seconds INR (0.9-1.1) APTT (21.0-31.0) Seconds PTT Ratio POC Sodium (135-144) mmol/L Sodium (136-145) mmol/L POC Potassium (3.3-5.0) mmol/L Potassium (3.5-5.1) mmol/L POC Chloride (101-112) mmol/L Chloride (98-107) mmol/L Carbon Dioxide (21-32) mmol/L POC Total CO2 (24-31) mmol/L Anion Gap (3-11) POC Anion Gap (16-25) mmol/L POC BUN (7-18) mg/dl BUN (7-18) mg/dl Creatinine (0.6-1.4) mg/dl POC Creatinine (0.6-1.3) mg/dl Est Cr Clr Drug Dosing ml/min Est GFR ( Amer) Est GFR (Non-Af Amer) BUN/Creatinine Ratio (10-20) Glucose (70-99) mg/dl POC Glucose (other) (70-99) mg/dl Calcium (8.5-10.1) mg/dl POC Ioniz Calcium Bryant (1.12-1.32) mmol/l Total Bilirubin (0.2-1) mg/dl AST (15-37) U/L ALT (12-78) U/L Alkaline Phosphatase (45-117) U/L Troponin I (0-0.045) ng/ml Total Protein (6.4-8.2) gm/dl Albumin (3.4-5.0) gm/dl Globulin (2.5-4.0) gm/dl Albumin/Globulin Ratio (0.9-2) Lipase (73-393) U/L Urine Color Urine Appearance (Clear) Urine pH (4.5-7.5) Ur Specific [place] (1.000-1.030) Urine Protein (Negative) Urine Glucose (UA) (Negative) Urine Ketones (Negative) Urine Blood (Negative) Urine Nitrite (Negative) Urine Bilirubin (Negative) Urine Urobilinogen (Negative) Ur Leukocyte Esterase (Negative) Diagnostic Findings CTAP IMPRESSION: 1. Distended and fluid-filled stomach with 2 focal areas of narrowing at the pylorus and distal second portion of duodenum. The areas of narrowing could be within the range normal limits. Focal stricture/masses are considered less likely but not entirely excluded. Consider follow-up endoscopy for further evaluation and to exclude the possibility of gastric outlet obstruction. 2. Hepatic steatosis. 3. Cholecystectomy. 4. Additional findings as described above. PG Care Time/CCT Total # of Minutes Spent Total Time Spent with Patient: Total time spent is greater than 50% in coordination of care (as documented) at patient's floor/unit and/or counseling patient: Coding Level of Care Code 07816 Subseq Hosp Care Lvl 2 Diagnoses Gastric outlet obstruction K31.1 Celiac disease K90.0 Hypertension I10 DVT prophylaxis Z29.9
--- NOTE | 2020-05-07 10:32 | Gastrointestinal Consultation ---
Date of Consultation May 07, 2020 Assessment & Plan (1) Gastric outlet obstruction: Abnormal CT suggestive of gastric outlet obstruction with narrowing at pylorus and duodenum. -Rapid COVID19 swab in preparation for EGD today. -Keep NPO. -Continue IV PPI BID. -Further recommendations pending results of testing. Present on Admission?: Yes (2) Celiac disease: -Given recurrent issues of duodenal inflammation and stricturing, I think it may be prudent to encourage patient to be more aggressive in the treatment of his Celiac Disease. Would recommend a 100% gluten-free diet. Present on Admission?: Yes Supervising Physician Co-Signing Physician Notes Agree with ASAD Fuentes Abd: Soft, NT, slight distention, +BS Proceed with EGD today History of Present Illness Reason for Consultation: Gastric Outlet Obstruction Attending Physician: Adolfo Elizabeth MD History of Present Illness Patient is a 70 yo male with a PMH of Celiac Disease, GERD, and previous duodenal obstruction in 2014 who presents to the ED with significant abdominal pain and bloating. The patient reports that the pain began abruptly on Thursday05/05/20. He notes that he was unable to tolerate food without any pain. Last meal was ~28 hours ago. He reports nausea, abdominal distention, but denies vomiting or bowel habit changes. Prior to presenting to the ED, he tried taking Motrin without improvement of his symptoms. He takes PPI therapy daily. He was admitted to [facility] after a CT scan indicated concern for gastric outlet obstruction with narrowing at the pylorus & duodenum. The patient last had an EGD in June 2019 that indicated gastritis. No recent medication or dietary changes. Of note, the patient was recently diagnosed with Celiac disease. At the time, he reported that due to his absence of symptoms he did not feel compelled to aggressively treat his Celiac disease. Laboratory testing in the ED indicates an unremarkable CBC and metabolic panel. The lipase is unremarkable. Allergies Allergy/AdvReac Type Severity Reaction Status Date / Time No Known Allergies Allergy Verified 05/06/20 17:44 Home Medications Home Medications Medication Instructions Recorded Confirmed Type Anacin 1 tab PO QID PRN 05/28/18 05/06/20 History docusate sodium [Colace] 100 mg PO BID 05/28/18 05/06/20 History magnesium oxide 250 mg PO QAM 05/28/18 05/06/20 History multivitamin 1 tab PO QAM 05/28/18 05/06/20 History losartan 100 mg PO QAM 01/27/19 05/06/20 History ibuprofen [Motrin IB] 400 mg PO Q6H PRN 06/15/19 05/06/20 History omeprazole 20 mg PO BID #60 cap 06/23/19 05/06/20 Rx metoprolol succinate 25 mg PO QAM 05/06/20 05/06/20 History Patient History Medical History Benign prostatic hyperplasia with urinary obstruction Biliary colic Cervical spondylosis Chronic prostatitis History of colon polyps History of esophageal stricture History of kidney stones History of prostate cancer Hx of acute pancreatitis Hx of headache WEATHER RELATED Impotence, organic Stomach ulcer Urinary tract infection Surgical History Difficult airway for intubation Glidescope #3, ETT #8.0 History of appendectomy History of back surgery LUMBAR - 07/25/13 - MAC #3, ETT #7.5, Grade 3 View History of cholecystectomy 09/10/16 - Glidescope #3, ETT #8.0, HiLo Oral, Grade 1 View History of colonoscopy with polypectomy History of esophagogastroduodenoscopy (EGD) History of hemorrhoidectomy History of herniorrhaphy INGUINAL X 2 History of lumbar fusion 01/2019--Dr. Hnederson--removed old hardware, new placed History of prostatectomy 09/27/15 - Glidescope #3, ETT #8.0 History of removal of cyst RIGHT KIDNEY Postoperative eye state (07/25/13) Family History Daughter Family history of reaction to anesthesia difficulty coming out of anesthesia---pt has had issues since , has a trachea Father Family hx colonic polyps Social History Smoking Status: Never smoker Second Hand Exposure: Yes (father smoked); Hx Alcohol Use: Yes Alcohol type: wine Hx Substance Use: No Preferred Language: Guatemalan Communication Ability: Effective Pump Station Operator Required: No Beliefs That Will Affect Care: None marital status: Current Living Situation: Spouse and Family Current Living Situation Comment: Lives with and daughter Feels Safe at Home: Yes Safety Concerns: Feels Safe At This Time Assistive Devices: None Review of Systems Constitutional: no fever and no chills Eyes: no problem reported Respiratory: no cough and no dyspnea Cardiovascular: no chest pain Gastrointestinal: + abdominal pain, + bloating and + nausea; no vomiting and no change in bowel habits Musculoskeletal: no problem reported Integumentary: no rash Neurologic: no problem reported Psychiatric: no problem reported Hematologic / Lymphatic: no unexplained weight loss Physical Exam Constitutional: WD/WN, vitals as above Eyes: no conjunctival abnormality ENMT: Ears: no hearing impairment Neck: normal visual inspection Respiratory: normal respiratory effort Cardiovascular: Extremities: no edema Gastrointestinal (Abdomen): Inspection/Auscultation: + abdomen distended Musculoskeletal: Head/Neck/Chest: normocephalic Skin: no rashes Neurologic: Speech / Cognition: normal speech Motor/Sensory: no tremor Psychiatric: A+Ox3, euthymic affect Results & Data ([facility]) Vital Signs (Past 12 Hours) Vital Signs Temp Pulse Resp BP Pulse Ox 05/07/20 06:35 36.3 C L 59 L 19 147/84 H 96 PG Care Time/CCT Total # of Minutes Spent Total Time Spent with Patient: Total time spent is greater than 50% in coordination of care (as documented) at patient's floor/unit and/or counseling patient: Coding Level of Care Code 88895 Inpt Consult Level 4 Diagnoses Gastric outlet obstruction K31.1 Celiac disease K90.0
[2020-05-07] MEDS: SODIUM CHLORIDE 0.9% 1000ML 1,000 ML IV SCH (11:09)
[2020-05-07] MEDS ORDERED: HydrALAZINE HCL 20 MG/ML VIAL IV PRN (13:50)
--- NOTE | 2020-05-07 15:17 | Anesthesiology Consultation ---
Date of Service May 07, 2020 Assessment & Plan (1) Encounter for pre-operative examination: Chart Review Chart Review: Acceptable Risk for Surgery and Patient NOT seen in Pre Admission Testing Consults Requested none History Surgery Operation Date: 05/07/20 17:15 Proposed Procedures p Esophagogastroduodenoscopy Dr Salazar - Jagdeep Crum Case, DO Height/Weight Height: 5 ft 8 in Weight: 85 kg Allergies Allergy/AdvReac Type Severity Reaction Status Date / Time No Known Allergies Allergy Verified 05/06/20 17:44 Medications Home Medications Medication Instructions Recorded Confirmed Last Taken Anacin 1 tab PO QID PRN 05/28/18 05/06/20 06/23/19 06:00 docusate sodium [Colace] 100 mg PO BID 05/28/18 05/06/20 06/22/19 magnesium oxide 250 mg PO QAM 05/28/18 05/06/20 06/22/19 multivitamin 1 tab PO QAM 05/28/18 05/06/20 06/22/19 losartan 100 mg PO QAM 01/27/19 05/06/20 06/23/19 06:30 ibuprofen [Motrin IB] 400 mg PO Q6H PRN 06/15/19 05/06/20 06/20/19 omeprazole 20 mg PO BID #60 cap 06/23/19 05/06/20 Unknown metoprolol succinate 25 mg PO QAM 05/06/20 05/06/20 Unknown Active Medications Generic Name Dose Route Start Last Admin Trade Name Freq PRN Reason Stop Dose Admin Sodium Chloride 1,000 mls @ 80 mls/hr 05/06/20 22:41 05/07/20 11:09 Nss 1000ml IV 06/05/20 22:40 80 mls/hr .[id number] PIYUSH Administration Pantoprazole Sodium 40 mg/ 10 mls @ 5 mls/min 05/07/20 09:00 05/07/20 07:31 Syringe IV 06/06/20 08:59 5 mls/min BID PIYUSH Administration Past Medical History Medical History Benign prostatic hyperplasia with urinary obstruction Biliary colic Cervical spondylosis Chronic prostatitis History of colon polyps History of esophageal stricture History of kidney stones History of prostate cancer Hx of acute pancreatitis Hx of headache WEATHER RELATED Impotence, organic Stomach ulcer Urinary tract infection Exercise / Class Metabolic Activity II 4-5 Yardwork/Stairs/Walk up hill Past Family History Family History Daughter Family history of reaction to anesthesia difficulty coming out of anesthesia---pt has had issues since , has a trachea Father Family hx colonic polyps Past Surgical History Surgical History Difficult airway for intubation Glidescope #3, ETT #8.0 History of appendectomy History of back surgery LUMBAR - 07/25/13 - MAC #3, ETT #7.5, Grade 3 View History of cholecystectomy 09/10/16 - Glidescope #3, ETT #8.0, HiLo Oral, Grade 1 View History of colonoscopy with polypectomy History of esophagogastroduodenoscopy (EGD) History of hemorrhoidectomy History of herniorrhaphy INGUINAL X 2 History of lumbar fusion 01/2019--Dr. Henderson--removed old hardware, new placed History of prostatectomy 09/27/15 - Glidescope #3, ETT #8.0 History of removal of cyst RIGHT KIDNEY Postoperative eye state (07/25/13) Social History Smoking Status: Never smoker Hx Alcohol Use: Yes Alcohol type: wine alcohol intake frequency: a few times a month Hx Substance Use: No substance use type: does not use Physical Exam Vital Signs Last Vital Signs Temp 36.3 C L 05/07/20 06:35 Pulse 59 L 05/07/20 06:35 Resp 19 05/07/20 06:35 BP 147/84 H 05/07/20 06:35 Pulse Ox 96 05/07/20 06:35 Testing Laboratory Results 05/07/20 05:27 05/07/20 05:27 PT 10.7 Seconds (9.0-12.0) 05/06/20 17:43 INR 1.0 (0.9-1.1) 05/06/20 17:43 APTT 25.5 Seconds (21.0-31.0) 05/06/20 17:43 Urine Color Yellow 05/06/20 18:50 Urine Appearance Clear (Clear) 05/06/20 18:50 Urine pH 5.5 (4.5-7.5) 05/06/20 18:50 Ur Specific [place] > 1.045 (1.000-1.030) H 05/06/20 18:50 Urine Protein Negative (Negative) 05/06/20 18:50 Urine Glucose (UA) Negative (Negative) 05/06/20 18:50 Urine Ketones Negative (Negative) 05/06/20 18:50 Urine Nitrite Negative (Negative) 05/06/20 18:50 Ur Leukocyte Esterase Negative (Negative) 05/06/20 18:50 Electrocardiogram Date: 05/06/20 Findings: + NSR @ (72) Sinus rhythm with 1st degree A-V block Otherwise normal ECG When compared with ECG of 28-JAN-2019 13:49, No significant change was found Confirmed by Ramón Singh ([id number]) on 05/07/2020 9:20:08 AM
[2020-05-07] MEDS ORDERED: PROPOFOL IV EMULSION 10 MG/ML 20 ML VIAL IV ONE (16:03)
[2020-05-07] MEDS ORDERED: LIDOCAINE HCL 2% 2 ML VIAL/AMP(20MG/ML) INFIL ONE (16:03)
--- NOTE | 2020-05-07 16:14 | GI REPORT ---
Patient Name: Dakota Pagan Procedure Date: 05/07/2020 3:35 PM Date of : 1950 Admit Type: Inpatient Age: 70 Gender: Male Attending MD: Jagdeep Salazar DO Procedure: Upper GI endoscopy Providers: Jagdeep Salazar DO Referring MD: Adolfo Elizabeth Indications: Generalized abdominal pain, Duodenal stricture Medicines: Monitored Anesthesia Care Complications: No immediate complications. Estimated Blood Loss: Estimated blood loss: none. Procedure: Pre-Anesthesia Assessment: - Prior to the procedure, a History and Physical was performed, and patient medications and allergies were reviewed. The patient's tolerance of previous anesthesia was also reviewed. The risks and benefits of the procedure and the sedation options and risks were discussed with the patient. All questions were answered, and informed consent was obtained. Prior Anticoagulants: The patient has taken no previous anticoagulant or antiplatelet agents. ASA Grade Assessment: III - A patient with severe systemic disease. After reviewing the risks and benefits, the patient was deemed in satisfactory condition to undergo the procedure. After obtaining informed consent, the endoscope was passed under direct vision. Throughout the procedure, the patient's blood pressure, pulse, and oxygen saturations were monitored continuously. The Endoscope was introduced through the mouth, and advanced to the third part of duodenum. The upper GI endoscopy was accomplished without difficulty. The patient tolerated the procedure well. Findings: The esophagus was normal. A small hiatal hernia was present. An acquired benign-appearing, intrinsic severe stenosis was found in the second portion of the duodenum and was traversed. A TTS dilator was passed through the scope. Dilation with a 12-13.5-15 mm balloon dilator was performed to 15 mm. The dilation site was examined and showed moderate improvement in luminal narrowing. Food (residue) was found in the second portion of the duodenum. Removal of food was accomplished with aid of Ann Net. Impression: - Normal esophagus. - Small hiatal hernia. - Acquired duodenal stenosis. Dilated. - Retained food in the duodenum. Removal was successful. Recommendation: - Return patient to [facility] for ongoing care. - Gluten free diet. - Continue present medications. Jagdeep Salazar DO 05/07/2020 4:13:54 PM This report has been signed electronically. Note Initiated On: 05/07/2020 3:35 PM Number of Addenda: 0 I attest to the content of the Intraoperative Record and orders documented therein, exceptions below {[id number]}
--- NOTE | 2020-05-07 16:19 | Anesthesiology Progress Note ---
Date of Service May 07, 2020 Anesthesia Post Procedure Vital Signs Vital Signs: Temp Pulse Pulse Pulse Resp BP BP 05/07/20 16:06 63 18 130/80 05/07/20 15:15 36.9 C 58 L 18 167/83 H 05/07/20 06:35 36.3 C L 59 L 19 147/84 H 05/06/20 22:22 36.8 C 58 L 16 166/89 H 05/06/20 22:02 58 L 18 142/86 H 05/06/20 21:00 62 16 138/86 05/06/20 20:00 62 18 142/86 H 05/06/20 18:56 66 19 127/84 05/06/20 17:25 05/06/20 17:12 36.4 C L 77 18 141/86 H Pulse Ox 05/07/20 16:06 96 05/07/20 15:15 97 05/07/20 06:35 96 05/06/20 22:22 98 05/06/20 22:02 95 05/06/20 21:00 96 05/06/20 20:00 96 05/06/20 18:56 96 05/06/20 17:25 96 05/06/20 17:12 94 Pain Intensity Bilateral Abdomen: Pain Intensity: 5 Transfer of Care Handoff Completed per policy Notes Mental Status: alert / awake / arousable Patient Amnestic to Procedure: Yes Nausea / Vomiting: adequately controlled Pain: adequately controlled Airway Patency, RR, SpO2: stable & adequate BP & HR: stable & adequate Hydration State: stable & adequate Anesthetic Complications: no major complications apparent
[2020-05-07] MEDS ORDERED: ACETAMINOPHEN 325 MG TAB PO PRN (18:29)
[2020-05-07] MEDS: LOSARTAN POTASSIUM 50 MG TAB PO SCH (19:38)
[2020-05-07] MEDS: DOCUSATE SODIUM 100 MG CAP PO SCH (21:46)
[2020-05-08] MEDS: SODIUM CHLORIDE 0.9% 1000ML 1,000 ML IV SCH
[2020-05-08] MEDS: PANTOprazole 40 MG in SYRINGE 0 ML IV SCH (08:40)
[2020-05-08] MEDS: LOSARTAN POTASSIUM 50 MG TAB PO SCH (08:41)
[2020-05-08] MEDS: DOCUSATE SODIUM 100 MG CAP PO SCH (08:47)
[2020-05-08] MEDS ORDERED: METOPROLOL SUCC 25MG EXT REL TAB PO SCH (09:00)
[2020-05-08] MEDS ORDERED: MAGNESIUM OXIDE 400 MG TAB PO SCH (09:00)
--- NOTE | 2020-05-08 09:11 | Discharge Summary ---
Date of Service May 08, 2020 Admission HPI Per Admitting Provider 70-year-old male with past medical history hypertension, GERD, celiac disease presents with concern of epigastric abdominal pain as been ongoing since yesterday around 3 PM. It has worsened and thus patient presented to ED today. Pain described as constant with bloating sensation, nonradiating. Abdominal pain exacerbated by any food intake. Patient took [id number] antacids and Motrin with no alleviation of symptoms. Patient notes that he had similar occurrence about 4 years ago that required EGD intervention with pyloric distention. Also notes a history of pancreatitis, however this does not feel similar to that. Associated nausea, but patient otherwise denies any fevers, chills, sweats, vomiting, diarrhea black/tarry stools, decreased appetite, chest pain, shortness of breath, headache, urinary symptoms, sick contacts or recent travel anywhere. Patient no other acute concerns or complaints. Pertinent labs: Alk phos 151, troponin negative, lipase WNL 110, otherwise largely unremarkable Abdomen/pelvis CT: Distended and fluid-filled stomach with 2 focal areas of narrowing at the pylorus and distal second portion of duodenum. The areas of narrowing could be within the range normal limits. Focal stricture/masses are considered less likely but not entirely excluded. Hepatic steatosis. ER course: IV famotidine 20 mg, IV fentanyl 50mcg, IV Zofran 4 MG, IV pantoprazole 40 mg, NSS 1 L Abdominal surgical history: Cholecystectomy, appendectomy, polypectomy Admission Exam Per Admitting Provider Constitutional: WD/WN, vitals as above Eyes: PERRL, conjunctivae normal, anicteric sclerae ENMT: external ear and nose normal, oropharynx normal Respiratory: normal respiratory effort, lungs clear to auscultation Cardiovascular: RRR, no murmur, no edema Gastrointestinal (Abdomen): Inspection/Auscultation: + abdomen distended Percussion/Palpation: + abdomen tender (Mild epigastric); no guarding Skin: no rashes, warm and dry Psychiatric: A+Ox3, euthymic affect Principal Diagnosis Acquired Duodenal Stenosis Discharge Exam Constitutional WD/WN, vitals as above no acute distress Eyes + anicteric sclerae; no eyelid abnormality ENMT Ears: no hearing impairment Nose: no external nose abnormality Neck normal visual inspection Respiratory normal respiratory effort, lungs clear to auscultation Cardiovascular RRR, no murmur, no edema Gastrointestinal (Abdomen) Inspection/Auscultation: normal bowel sounds Percussion/Palpation: abdomen soft; abdomen nontender, no guarding and abdomen not rigid Musculoskeletal no cyanosis or clubbing, extremities motor strength 5/5 Skin no rashes, warm and dry Neurologic PERRL, EOMI, accommodation nl, no face palsy, no dysarthria Psychiatric A+Ox3, euthymic affect Lymphatic no cervical or axillary lymphadenopathy Discharge Data Allergies Allergy/AdvReac Type Severity Reaction Status Date / Time No Known Allergies Allergy Verified 05/06/20 17:44 Consultations 05/06/20 20:05 ED Decision to Admit Stat 05/06/20 22:41 Consult Gastroenterology Routine Procedures Performed Operation Date: 05/07/20 17:15 Actual Procedures p EGD Dilatation - Jagdeep Crum Case, DO Ordered Studies 05/06/20 17:25 CT abd pelvis IV con only Stat Hospital Course (1) Gastric outlet obstruction: Abdomen/pelvis CT: Distended and fluid-filled stomach with 2 focal areas of narrowing at the pylorus and distal second portion of duodenum. The areas of narrowing could be within the range normal limits. Focal stricture/masses are considered less likely but not entirely excluded Patient had history of stenosis requiring EGD with dilation approx 4 years ago. COVID negative pain control, antiemetics utilized as needed GI consulted s/p EGD which showed small hiatal hernia and duodenal stenosis which was dilated and food removed from stomach Improvement of symptoms and no further episodes following eating Discussed with patient given newer diagnosis of celiac to maintain strict adherence to prevent recurrence (2) Celiac disease: Given recurrent issues of duodenal inflammation and stricturing, encouraged patient to be more aggressive in the treatment of his Celiac Disease --> continued to recommend 100% gluten-free diet Ordered gluten free diet while inpatient without issue (3) Hypertension: Chronic. Stable. Held meds intitially as NPO but losartan resumed post-EGD BP 146/79 prior to discharge (4) DVT prophylaxis: * SCDs while inpatient, low risk Dispo: discharged home with Follow up with PCP outpatient Total Time Total Time Spent Total Time Spent (In Minutes): 60 Discharge Plan Discharge Items Patient Disposition: Home - Self-Care Reason For Visit: ABD PAIN Discharge Diagnosis: Acquired Duodenal Stenosis Condition on Discharge: Good Goals: You have been hospitalized for an urgent problem which required surgery. During your stay at [facility], we have made an effort to correct the problem that brought you to the hospital while keeping you as comfortable as possible. Surgery and medications were used to bring your condition under control and your discharge instructions will include directions for any medications you should take after leaving the hospital. Please make sure to follow the advice of your surgeon regarding follow up with the surgeon and with your primary care provider. Activity: Resume your previous activity Non-emergency contact: Primary Care Provider Call non-emergency contact if: you have any medication questions and your symptoms worsen Follow-up/Referrals: Yann Flores, [Primary Care Provider] - Diet: Gluten Free and Heart Healthy Addtl Attending Provider Instructions: You have been hospitalized for abdominal pain and were evaluated by our gastroenterology team. You lipase was normal, which excluded pancreatitis given history of such. Given your history of stenosis requiring intervention, EGD was performed. This showed acquired duodenal stenosis (narrowing), which was dilated and retained food was removed from the duodenum at that time. It also showed a small hiatal hernia. If you have any questions or concerns for GI, their number is [phone]. As you have celiac disease, it should be stressed the importance of adhering to a gluten free diet to prevent inflammation and likely cause of current condition. Given that it was diagnosed in the past year and you previously had these issues, it is possible that that was the cause the initial episode as well. Now that you have the diagnosis, it is imperative to adhere to strict dietary guidelines to prevent recurrance. Please follow up with your primary care provider in the next week to monitor your progress. Please return to the emergency department with any worsening pain, fever, or for any symptoms that are concerning for you. It has been a pleasure being a part of the medical team providing for you while you have been in the hospital. Take care! Pending Studies at Discharge: No Stand-Alone Forms: [facility], Opioid Pain Management, Work/School Release (Inpt), Smoking Cessation Medications and DC Order Prescriptions: Continued losartan 100 mg Tablet 100 mg PO QAM RF: 0 ibuprofen [Motrin IB] 200 mg Tablet 400 mg PO Q6H PRN (Reason: Pain) RF: 0 omeprazole 20 mg capsule,delayed release(DR/EC) 20 mg PO BID Qty: 60 RF: 11 metoprolol succinate 25 mg tablet extended release 24 hr 25 mg PO QAM RF: 0 multivitamin Tablet 1 tab PO QAM RF: 0 docusate sodium [Colace] 100 mg Capsule 100 mg PO BID RF: 0 magnesium oxide 250 mg Tablet 250 mg PO QAM RF: 0 Anacin 400-32 mg Tablet 1 tab PO QID PRN (Reason: Headache) RF: 0 Discharge Orders: Discharge Order (Routine); Ordered 05/08/20 Ordered By: So Araiza/Other Patient Handouts: Esophageal Dilation, Anatomy of the Digestive System Admission Data Admit Date/Time: 05/06/20 21:31 Attending Provider: Adolfo Elizabeth Admit Provider: Epifanio Rollins Primary Care Provider: Yann Flores Other Providers: Ministerio Moreno ; Jagdeep Salazar Other Interventions: Discharge Summary Assessment (RN) Last Done: 05/08/20 12:00 Coding Level of Care Code D/C Day Management >30 mins Diagnoses Gastric outlet obstruction K31.1 Celiac disease K90.0 Hypertension I10 DVT prophylaxis Z29.9
--- NOTE | 2020-05-15 05:09 | Billing Data ---
Date of Service May 15, 2020 Coding Level of Care Code 80241 Initial Inpt Care Lvl 2
== END 2020-05-08 12:30 | disposition home or self-care (01) | DRG 382 ==
LOC: ED 17:08 → SUATTDRO 21:31 → 3W 21:31
DX: K90.0 Celiac disease; I10 Essential (primary) hypertension; Z87.19 Personal history of other diseases of the digestive system; T18.3XXA Foreign body in small intestine, initial encounter; K21.9 Gastro-esophageal reflux disease without esophagitis; K31.5 Obstruction of duodenum; Z79.899 Other long term (current) drug therapy